=== PATIENT | female | born 1990 | race Caucasian/White ===

== ENCOUNTER 2017-04-05 21:38 | Outpatient (CLI) | payer OTHER ==
[~2017-04-05] VITALS: Ht 177.8 cm; Wt 112.8 kg
[~2017-04-05 21:38] MED LIST: ACHYD1T PO; CEPH500C PO; DCS100C PO; IBP800T PO; PHEN-639 PO; PREN1TAB39 PO; SERT50TA2 PO
[2017-04-05 22:00] VITALS: BP 119/67
[2017-04-05] MEDS ORDERED: IRON18TA PO (22:12)
[2017-04-05] MEDS ORDERED: BETAMETHASONE ACE/NA PHOS 6 MG/ML (CELESTONE SOLUSPAN) IM SCH (22:30)
[2017-04-05 22:39] LABS: CLARITY,URINE CLEAR; COLOR,URINE YELLOW
[2017-04-05 22:40] LABS: BACTERIA,URINE NEGATIVE /HPF; BILIRUBIN,URINE NEGATIVE (NEGATIVE); GLUCOSE, URINE (UA) NEGATIVE (NEGATIVE); KETONES,URINE NEGATIVE (NEGATIVE); LEUKOCYTE ESTERASE ,URINE NEGATIVE (NEGATIVE); NITRITE,URINE NEGATIVE (NEGATIVE); PH,URINE 7 (5-9); PROTEIN,URINE NEGATIVE (NEGATIVE); UROBILINOGEN,URINE NORMAL (NORMAL); WBC,URINE 0-2 /HPF
--- NOTE | 2017-04-06 12:05 | Physician Query-Final Dx ---
MARIO BAGLEY 04/06/17 1205: Clinic Account Progress/Dx Physician Query: Please give diagnosis Date of Service Apr 05, 2017 at 21:38 SEKOU JEAN DO 04/06/17 1701: Clinic Account Progress/Dx DIAGNOSIS: Diagnosis 30 week IUP Cramping and bleeding in MARIO BAGLEY Apr 06, 2017 12:05 SEKOU JEAN DO Apr 06, 2017 17:01
[2017-04-06] MEDS ORDERED: BETAMETHASONE ACE/NA PHOS 6 MG/ML (CELESTONE SOLUSPAN) IM SCH (22:30)
== END 2017-04-05 23:11 | disposition home or self-care (01) ==
LOC: WSo 21:38 → LDRP 21:38 → WSo 23:11
PROVIDERS: ATTEND Obstetrics & Gynecology
DX: O46.93 Antepartum hemorrhage, unspecified, third trimester (principal); O99.89 Other specified diseases and conditions complicating pregnancy, childbirth and the puerperium; O26.893 Other specified pregnancy related conditions, third trimester; N94.89 Other specified conditions associated with female genital organs and menstrual cycle; Z3A.30 30 weeks gestation of pregnancy
CPT/HCPCS: 81000; 96372; 99213

== ENCOUNTER 2017-04-06 20:58 | Outpatient (CLI) | payer OTHER ==
[~2017-04-06 20:58] MED LIST changes: +IRON18TA PO
[2017-04-06] MEDS ORDERED: BETAMETHASONE ACE/NA PHOS 6 MG/ML (CELESTONE SOLUSPAN) ONE (21:07)
[2017-04-07] MEDS ORDERED: BETAMETHASONE ACE/NA PHOS 6 MG/ML (CELESTONE SOLUSPAN) IM ONE (09:00)
--- NOTE | 2017-04-07 14:30 | Physician Query-Final Dx ---
DWIGHT JOHNSON 04/07/17 1430: Clinic Account Progress/Dx Physician Query: Please give diagnosis Date of Service Apr 06, 2017 at 20:58 SEKOU JEAN DO 04/08/17 0811: Clinic Account Progress/Dx DIAGNOSIS: Diagnosis 31 week IUP Cramping/bleeding -return visit for Betamethasone injection DWIGHT JOHNSON Apr 07, 2017 14:30 SEKOU JEAN DO Apr 08, 2017 08:11
== END 2017-04-06 21:20 | disposition home or self-care (01) ==
LOC: WSo 20:58 → LDRP 20:58 → WSo 21:20
PROVIDERS: ATTEND Obstetrics & Gynecology
DX: O46.93 Antepartum hemorrhage, unspecified, third trimester (principal); Z3A.31 31 weeks gestation of pregnancy
CPT/HCPCS: 96372

== ENCOUNTER 2017-05-13 20:02 | Inpatient (IN) | payer OTHER ==
[2017-05-13] VITALS (28 sets, daily range): BP systolic 103–144; BP diastolic 62–80
[~2017-05-13] VITALS: Ht 177.8 cm; Wt 112.2 kg
[2017-05-13] MEDS ORDERED: SUFENTA 0.6MCG/ML BUPIVA 0.125 100 ML ONE (20:34)
[2017-05-13] MEDS ORDERED: AMPICILLIN 2000 MG INJECTION (IM/IV) ONE (20:35)
[2017-05-13] MEDS ORDERED: AMPICILLIN INJECTION 2,000 MG in NS (IVPB) 100 ML IV SCH (20:47)
[2017-05-13] MEDS ORDERED: LACTATED RINGERS 1,000 ML IV SCH (20:47)
[2017-05-13] MEDS ORDERED: NS (IVPB) 100 ML ONE (20:49)
--- NOTE | 2017-05-13 20:58 | History & Physical-OB ---
OB - Chief Complaint & HPI Date/Time Date of Admission: Date of Admission: May 13, 2017 at 20:47 Time Seen by Provider: 20:00 Chief Complaint/History OB-Reason for Admission/Chief: Rupture of Membranes (onset of labor) Hx : 3 Hx Para: 2 Expected Date of Delivery: May 26, 2017 Gestational Age in Weeks: 38 Gestational Age in Days: 1 Admission Nurse Assessment Rev: Yes History of Labs A pos Antibody neg RI RPR NR HBsAg NR HIV NR GC neg GBS + Allergies and Home Medications Allergies Coded Allergies: No Known Drug Allergies (Unverified , 04/05/17) Patient Home Medication List Home Medication List Reviewed: Yes OB - History Hx of Present Care: Yes Ultrasounds: Normal mid trimester US Obstetrical Complications: Gestational Diabetes (GDMA2 on nightly glyburide), Other (Placenta previa which resolved at 34 weeks) Medical Complications: None Delivery History Hx Blood Disorders: No Patient Past Medical History noncontributory Immunizations Date of Influenza Vaccine: Nov 30, 2010 OB - Admission Exam Physical Exam HEENT: NCAT Heart: Rhythm Normal Lungs: Clear Abdomen: Gravid Extremities: Normal Reflexes: Normal Cervical Dilatation: 3cm Effacement: 75% Station: -1 Membranes: Ruptured Amniotic Fluid: Clear Heart Rate: 150's Accelerations: Accelerations Present Decelerations: Early Decelerations Short Term Variability: Present Dye Machine Tender Variability: Minimal (3-5) Intensity: Firm OB - Assessment/Plan/Diagnosis Assessment Assessment: active labor Admission Dx 27 yo @ 38.1 weeks GDMA 2 TOLAC GBS + Admission Status: Inpatient Order (span 2 midnights) Reason for Inpatient Admission: Active labor and delivery of term Plan Plan: Expectant Management Discharge Diagnosis Diagnosis: 27 yo @ 38.1 weeks GDMA 2 TOLAC GBS + SEKOU JEAN DO May 13, 2017 20:58
[2017-05-13] MEDS ORDERED: MINERAL OIL CONCENTRATE 99.9% 15 ML UDC TOP PRN (21:00)
[2017-05-13 21:15] LABS: BASOPHILS % (AUTO) 0 % (0-10); EOSINOPHILS % (AUTO) 0 % (0-10); HEMATOCRIT 33 % (35-52); HEMOGLOBIN 11.2 G/DL (11.5-16.0); LYMPHOCYTES # (AUTO) 1.1 X 10^3 (1.0-4.0); LYMPHOCYTES % (AUTO) 8 % (12-44); MEAN CORPUSCULAR HEMOGLOBIN 31 PG (25-34); MEAN CORPUSCULAR HGB CONC 34 G/DL (32-36); MEAN CORPUSCULAR VOLUME 93 FL (80-99); MONOCYTES % (AUTO) 8 % (0-12); NEUTROPHILS # (AUTO) 11.7 X 10^3 (1.8-7.8); NEUTROPHILS % (AUTO) 84 % (42-75); PLATELET COUNT 159 10^3/uL (130-400); RED BLOOD COUNT 3.58 10^6/uL (4.35-5.85); RED CELL DISTRIBUTION WIDTH 14.9 % (10.0-14.5); WHITE BLOOD COUNT 13.8 10^3/uL (4.3-11.0)
--- OUTSIDE RECORDS SUMMARY | 2017-05-13 21:16 | XMS REPORT ---
Author Author EARL HUA [facility] eClinicalWorks Address Unknown Phone Unavailable Care Team Providers Care Elevator Inspector Name Role Phone EARL HUA CP Unavailable Allergies, Adverse Reactions, Alerts Substance Reaction Event Type N.K.D.A. Info Not Available Non Drug Allergy Problems Problem Type Condition Code Onset Dates Condition Status Assessment Acute cystitis without hematuria N30.00 Active Assessment Environmental allergies Z91.09 Active Problem Dysuria R30.0 Active Problem Major depressive disorder with single episode, remission status unspecified F32.9 Active Problem Environmental allergies Z91.09 Active Assessment Dysuria R30.0 Active Assessment Vaginal discharge N89.8 Active Problem Anxiety F41.9 Active Problem Mood disorder F39 Active Medications Medication Code System Code Instructions Start Date End Date Status Dosage Advil Congestion Relief [facility] [address]-46 10-200 MG Orally not defined Alprazolam [facility] [address]-38 0.5 MG Orally PRN 1 tablet Sertraline HCl [facility] [address]-84 100 MG Orally Once a day 1 tablet Clonidine HCl [facility] [address]-29 0.1 MG Orally Once a day September 14, 2015 1 tablet Cipro [facility] [address]-55 500 MG Orally Twice a day Dec 10, 2015 Dec 20, 2015 1 tablet Zyrtec Allergy [facility] [address]-34 10 mg Orally Once a day Dec 10, 2015 Jan 09, 2016 1 tablet Procedures Procedure Coding System Code Date URINE CULTURE/COLONY COUNT CPT-4 98601 Dec 10, 2015 TRICHOMONAS ASSAY W/OPTIC CPT-4 13517 Dec 10, 2015 URINALYSIS, AUTO, W/O SCOPE CPT-4 69412 Dec 10, 2015 CULTURE, BACTERIA, OTHER CPT-4 44180 Dec 10, 2015 EDWARDS VAG, DNA, DIR PROBE CPT-4 85649 Dec 10, 2015 Office Visit, Est Pt., Level 3 CPT-4 89500 Dec 10, 2015 Vital Signs Date/Time: Dec 10, 2015 Cardiac Monitoring Heart Rate 80 bpm Weight 229 lbs Height 70 in BMI 32.85 Index Blood Pressure Diastolic 64 mmHg Blood Pressure Systolic 100 mmHg Results Name Result Date Reference Range Unit Abnormality Flag BACTERIAL VAGINOSIS (IN HOUSE) ----Lot # [id number] [id number] ----Exp date 20151210 ----RESULTS Negative 20151210 ----Control + 20151210 TRICHOMONAS (IN HOUSE) ----TRICHOMONAS Negative 20151210 ----Control + 20151210 ----Lot # [id number] 20151210 ----Exp date 20151210 UA LONG DIP (IN HOUSE) ----SG 1.025 20151210 ----KET Negative 20151210 ----pH 6.0 20151210 ----BLO Trace-Intact 20151210 ----URO 2.0 [id number] ----NIT Negative 20151210 ----Protein Negative 20151210 ----GLU Negative 20151210 ----MARRY Negative 20151210 ----Color light yellow 20151210 ----BERONICA 1+ 20151210 ----Odor none 20151210 ----Clarity cloudy 20151210 Summary Purpose eClinicalWorks Submission
--- OUTSIDE RECORDS SUMMARY | 2017-05-13 21:16 | XMS REPORT ---
Author Author EARL HUA [facility] eClinicalWorks Address Unknown Phone Unavailable Care Team Providers Care Lime Mixer Tender Name Role Phone EARL HUA Unavailable Allergies No Known Allergies Problems Problem Type Condition Code Onset Dates Condition Status Problem Anxiety F41.9 Active Problem Mood disorder F39 Active Problem Major depressive disorder with single episode, remission status unspecified F32.9 Active Assessment Major depressive disorder with single episode, remission status unspecified F32.9 Active Medications Medication Code System Code Instructions Start Date End Date Status Dosage Clonidine HCl [facility] [address]-29 0.1 MG Orally Once a day September 14, 2015 1 tablet Alprazolam [facility] [address]-43 0.5 MG Orally PRN 1 tablet Sertraline HCl [facility] [address]-86 100 MG Orally Once a day 1 tablet Results No Known Results Summary Purpose eClinicalWorks Submission
--- OUTSIDE RECORDS SUMMARY | 2017-05-13 21:16 | XMS REPORT ---
Author Author ERAL HUA Organization eClinicalWorks Address Unknown Phone Unavailable Care Team Providers Care President [employer] Name Role Phone EARL HUA CP Unavailable Allergies, Adverse Reactions, Alerts Substance Reaction Event Type N.K.D.A. Info Not Available Non Drug Allergy Problems Problem Type Condition Code Onset Dates Condition Status Problem Anxiety F41.9 Active Problem Mood disorder F39 Active Problem Major depressive disorder with single episode, remission status unspecified F32.9 Active Assessment Mood disorder F39 Active Assessment Major depressive disorder with single episode, remission status unspecified F32.9 Active Assessment Anxiety F41.9 Active Medications Medication Code System Code Instructions Start Date End Date Status Dosage Rexulti [facility] [address]-37 0.5 MG Orally Once a day September 06, 2015 1 tablet Sertraline HCl [facility] [address]-97 100 MG Orally Once a day 1 tablet Alprazolam [facility] [address]-81 0.5 MG Orally PRN 1 tablet Procedures Procedure Coding System Code Date Office Visit, New Pt., Level 3 CPT-4 62839 September 06, 2015 Vital Signs Date/Time: September 06, 2015 Cardiac Monitoring Heart Rate 92 bpm Weight 230.5 lbs Height 70 in Blood Pressure Diastolic 76 mmHg Blood Pressure Systolic 106 mmHg Results No Known Results Summary Purpose eClinicalWorks Submission
--- OUTSIDE RECORDS SUMMARY | 2017-05-13 21:16 | XMS REPORT ---
Author Author EARL HUA Organization [facility] Address [address] [place] [address] Care Team Providers Care First Coat Operator Name Role Phone NEENA HUANETTE Unavailable PROBLEMS Type Condition ICD9-CM Code FEI21-CL Code Onset Dates Condition Status SNOMED Code Problem Environmental allergies Z91.09 Active 288114765 Problem Dysuria R30.0 Active 27440000 Problem Major depressive disorder with single episode, remission status unspecified F32.9 Active 79986307 Problem Anxiety F41.9 Active 24357544 Problem Mood disorder F39 Active 09369351 ALLERGIES Substance Reaction Event Type Date Status N.K.D.A. Unknown Non Drug Allergy Mar, Unknown SOCIAL HISTORY No smoking Hx information available PLAN OF CARE Activity Details Follow Up 3 Months Reason:anxiety/depression VITAL SIGNS Height 70 in 2016-03-05 Weight 231.9 lbs 2016-03-05 Temperature 98.1 degrees Fahrenheit 2016-03-05 Heart Rate 72 bpm 2016-03-05 Respiratory Rate 18 2016-03-05 BMI 33.27 kg/m2 2016-03-05 Blood pressure systolic 106 mmHg 2016-03-05 Blood pressure diastolic 78 mmHg 2016-03-05 MEDICATIONS Medication Instructions Dosage Frequency Start Date End Date Duration Status Advil Congestion Relief 10-200 MG Active Clonidine HCl 0.1 MG Orally Once a day 1 tablet 24h Aug, 30 day (s) Active Xanax 0.5 MG Orally Once a day prn 1 tablet Mar, Active Sertraline HCl 100 MG Orally Once a day TAKE ONE TABLET BY MOUTH ONCE DAILY 24h 30 Active RESULTS No Results PROCEDURES Procedure Date Ordered Related Diagnosis Body Site Office Visit, Est Pt., Level 3 Mar 05, 2016 IMMUNIZATIONS No Known Immunizations
--- OUTSIDE RECORDS SUMMARY | 2017-05-13 21:17 | XMS REPORT ---
Author Author BRYAN RAMOS [facility] eClinicalWorks Address Unknown Phone Unavailable Care Team Providers Care Dog Food Shredder Operator Name Role Phone BRYAN RAMOS CP Unavailable Allergies, Adverse Reactions, Alerts Substance Reaction Event Type N.K.D.A. Info Not Available Non Drug Allergy Problems Problem Type Condition Code Onset Dates Condition Status Problem Major depressive disorder with single episode, remission status unspecified F32.9 Active Problem Anxiety F41.9 Active Problem Dysuria R30.0 Active Problem Mood disorder F39 Active Assessment Pharyngitis, unspecified etiology J02.9 Active Medications Medication Code System Code Instructions Start Date End Date Status Dosage Sertraline HCl [facility] [address]-57 100 MG Orally Once a day 1 tablet Alprazolam [facility] [address]-96 0.5 MG Orally PRN 1 tablet Clonidine HCl [facility] [address]-50 0.1 MG Orally Once a day September 14, 2015 1 tablet Amoxicillin [facility] [address]-31 500 MG Orally 3 times a day Oct 31, 2015 Nov 10, 2015 1 capsule Advil Congestion Relief [facility] [address]-61 10-200 MG Orally not defined Procedures Procedure Coding System Code Date Office Visit, Est Pt., Level 3 CPT-4 50967 Oct 31, 2015 Vital Signs Date/Time: Oct 31, 2015 Cardiac Monitoring Heart Rate 70 bpm Weight 221.0 lbs Height 70 in BMI 31.71 Index Blood Pressure Diastolic 94 mmHg Blood Pressure Systolic 132 mmHg Results No Known Results Summary Purpose eClinicalWorks Submission
--- OUTSIDE RECORDS SUMMARY | 2017-05-13 21:17 | XMS REPORT | Continuity of Care Document ---
Author Author [facility] Organization [facility] Address Unknown Phone Unavailable Allergies Active Description Code Type Severity Reaction Onset Reported/Identified Relationship to Patient Clinical Status Yes No Known Drug Allergies [id number] Drug Allergy Unknown N/A 04/05/2017 Medications There is no data. Problems Date Dx Coded Attending Type Code Diagnosis Diagnosed By 02/17/2011 Ot 655.73 DECR MOVEMNT ANTEPARTUM CONDITION 06/06/2011 Ot 648.91 OTH CURR COND-DELIVERED 06/06/2011 Ot 652.51 HIGH HEAD AT TERM-DELIV 06/06/2011 Ot 653.41 FETOPELV DISPROPOR-DELIV 06/06/2011 Ot 659.71 ABN DEL FET HT RT/RHYTHM,W OR W/O MENTIO 06/06/2011 Ot 660.01 OBSTRUC/FET MALPOS-DELIV 06/06/2011 Ot 660.11 BONY PELV OBSTRUCT-DELIV 06/06/2011 Ot 660.31 PERSIST OCCIPTPOST-DELIV 06/06/2011 Ot 661.21 UTERINE INERT NEC-DELIV 06/06/2011 Ot V02.51 GROUP B STREPT CARRIER/SUSPECTED CARRIER 06/06/2011 Ot V27.0 DELIVER- SINGLE LIVEBORN 07/06/2015 Ot 789.09 ABDOMINAL PAIN, OTHER SPECIFIED SITE 07/06/2015 Ot 789.09 ABDOMINAL PAIN, OTHER SPECIFIED SITE 07/06/2015 Ot 789.09 ABDOMINAL PAIN, OTHER SPECIFIED SITE 07/06/2015 Ot 789.09 ABDOMINAL PAIN, OTHER SPECIFIED SITE 07/06/2015 FLO GRANADO Ot N39.0 URINARY TRACT INFECTION, SITE NOT SPECIF 07/06/2015 FLO GRANADO Ot R45.851 SUICIDAL IDEATIONS 07/06/2015 FLO GRANADO Ot Z63.79 OTHER STRESSFUL LIFE EVENTS AFFECTING FA 07/08/2015 FLO GRANADO Ot N39.0 URINARY TRACT INFECTION, SITE NOT SPECIF 07/08/2015 FLO GRANADO Ot R45.851 SUICIDAL IDEATIONS 07/08/2015 FLO GRANADO Ot Z63.79 OTHER STRESSFUL LIFE EVENTS AFFECTING FA 02/20/2016 Ot 789.09 ABDOMINAL PAIN, OTHER SPECIFIED SITE 02/20/2016 Ot 789.09 ABDOMINAL PAIN, OTHER SPECIFIED SITE 02/20/2016 Ot 789.09 ABDOMINAL PAIN, OTHER SPECIFIED SITE 02/20/2016 Ot 789.09 ABDOMINAL PAIN, OTHER SPECIFIED SITE 06/28/2016 FLO GRANADO Ot N39.0 URINARY TRACT INFECTION, SITE NOT SPECIF 06/28/2016 FLO GRANADO Ot R45.851 SUICIDAL IDEATIONS 06/28/2016 FLO GRANADO Ot Z63.79 OTHER STRESSFUL LIFE EVENTS AFFECTING FA 11/10/2016 Ot 789.09 ABDOMINAL PAIN, OTHER SPECIFIED SITE 11/14/2016 Ot 789.09 ABDOMINAL PAIN, OTHER SPECIFIED SITE 01/05/2017 CASSIUSSEKOU HELLER DO Ot Z36.87 ENCOUNTER FOR SCREENING FOR UN 01/05/2017 TED BECERRA SEKOU Pamela Ot Z3A.19 19 WEEKS GESTATION OF 01/14/2017 TED BECERRASEKOU Ot Z36.87 ENCOUNTER FOR SCREENING FOR UN 01/14/2017 TED BECERRA SEKOU Pamela Ot Z3A.19 19 WEEKS GESTATION OF 04/05/2017 TED BECERRA SEKOU Santiago Ot N94.89 OT COND ASSOC W FEMALE GENITAL ORGANS A 04/05/2017 TED BECERRA SEKOU Santiago Ot O26.893 OT RELATED CONDITIONS, THIRD 04/05/2017 TED SEKOU BECERRA Ot O46.93 ANTEPARTUM HEMORRHAGE, UNSPECIFIED, THIR 04/05/2017 TED BECERRA SEKOU Pamela Ot O99.89 OT DISEASES AND CONDITIONS COMPL PREG/C 04/05/2017 TED SEKOU BECERRA Ot Z3A.30 30 WEEKS GESTATION OF 04/06/2017 SEKOU JEAN DO Ot O46.93 ANTEPARTUM HEMORRHAGE, UNSPECIFIED, THIR 04/06/2017 SEKOU EJAN DO Ot Z3A.31 31 WEEKS GESTATION OF 04/09/2017 SEKOU JEAN DO Ot O46.93 ANTEPARTUM HEMORRHAGE, UNSPECIFIED, THIR 04/09/2017 SEKOU JEAN DO Ot Z3A.31 31 WEEKS GESTATION OF Procedures Code Description Performed By Performed On 74.1 LOW CERVICAL 06/04/2011 Results Test Result Range Complete urinalysis with reflex to culture - 04/05/17 22:20 Urine color determination YELLOW NRG Urine clarity determination CLEAR NRG Urine pH measurement by test strip 7 5-9 Specific gravity of urine by test strip 1.010 1.016- 1.022 Urine protein assay by test strip, semi-quantitative NEGATIVE NEGATIVE Urine glucose detection by automated test strip NEGATIVE NEGATIVE Erythrocytes detection in urine sediment by light microscopy NEGATIVE NEGATIVE Urine ketones detection by automated test strip NEGATIVE NEGATIVE Urine nitrite detection by test strip NEGATIVE NEGATIVE Urine total bilirubin detection by test strip NEGATIVE NEGATIVE Urine urobilinogen measurement by automated test strip (mass/volume) NORMAL NORMAL Urine leukocyte esterase detection by dipstick NEGATIVE NEGATIVE Automated urine sediment erythrocyte count by microscopy (number/high power field) NONE NRG Automated urine sediment leukocyte count by microscopy (number/high power field ) [HPF] NRG Bacteria detection in urine sediment by light microscopy NEGATIVE NRG Squamous epithelial cells detection in urine sediment by light microscopy 10-25 NRG Crystals detection in urine sediment by light microscopy NONE NRG Casts detection in urine sediment by light microscopy NONE NRG Mucus detection in urine sediment by light microscopy NEGATIVE NRG Complete urinalysis with reflex to culture NO NRG Renal epithelial cells detection in urine sediment by light microscopy NONE NRG Encounters ACCT No. Visit Date/Time Discharge Status Pt. Type Provider Facility Loc./Unit Complaint [id number] 04/06/2017 20:58:00 04/06/2017 21:20:00 DIS Outpatient SEKOU JEAN DO [facility] WSo BETEMETHASONE INJECTION [id number] 04/05/2017 21:38:00 04/05/2017 23:11:00 DIS Outpatient SEKOU JEAN DO [facility]So BLEEDING CRAMPING [id number] 01/02/2017 11:59:00 01/02/2017 23:59:59 CLS Outpatient SEKOU JEAN DO S [facility] RAD Z33.1 [id number] 11/10/2016 15:41:00 11/10/2016 23:59:59 CLS Preadmit QUETA FLOR, JHOAN Gutiérrez [facility] RAD Z34.80 [id number] 07/06/2015 15:04:00 07/06/2015 21:02:00 DIS Emergency FLO GRANADO [facility] ER [facility] [id number] 06/18/2011 15:06:00 Document Registration [id number] 06/03/2011 21:40:00 Document Registration [id number] 04/28/2011 07:58:00 Document Registration [id number] 02/17/2011 21:47:00 Document Registration
--- OUTSIDE RECORDS SUMMARY | 2017-05-13 21:17 | XMS REPORT ---
Author Author EARL HUA [facility] eClinicalWorks Address Unknown Phone Unavailable Care Team Providers Care Vehicle Technician Name Role Phone EARL HUA CP Unavailable Allergies, Adverse Reactions, Alerts Substance Reaction Event Type N.K.D.A. Info Not Available Non Drug Allergy Problems Problem Type Condition Code Onset Dates Condition Status Assessment Dysuria R30.0 Active Problem Major depressive disorder with single episode, remission status unspecified F32.9 Active Problem Anxiety F41.9 Active Problem Dysuria R30.0 Active Assessment Anxiety F41.9 Active Assessment Mood disorder F39 Active Problem Mood disorder F39 Active Assessment Major depressive disorder with single episode, remission status unspecified F32.9 Active Medications Medication Code System Code Instructions Start Date End Date Status Dosage Sertraline HCl [facility] [address]-93 100 MG Orally Once a day 1 tablet Clonidine HCl [facility] [address]-95 0.1 MG Orally Once a day September 14, 2015 1 tablet Alprazolam [facility] [address]-41 0.5 MG Orally PRN 1 tablet Procedures Procedure Coding System Code Date COMPREHEN METABOLIC PANEL CPT-4 31693 Oct 04, 2015 ASSAY THYROID STIM HORMONE CPT-4 22097 Oct 04, 2015 COMPLETE CBC W/AUTO DIFF WBC CPT-4 55210 Oct 04, 2015 VENIPUNCT, ROUTINE* CPT-4 93349 Oct 04, 2015 URINALYSIS, AUTO, W/O SCOPE CPT-4 50239 Oct 04, 2015 Office Visit, Est Pt., Level 4 CPT-4 66842 Oct 04, 2015 Vital Signs Date/Time: Oct 04, 2015 Cardiac Monitoring Heart Rate 86 bpm Weight 225.2 lbs Height 70 in BMI 32.31 Index Blood Pressure Diastolic 72 mmHg Blood Pressure Systolic 118 mmHg Results No Known Results Summary Purpose eClinicalWorks Submission
[2017-05-13 21:26] LABS: BAND NEUTROPHILS 11 %; BASOPHILS % (MANUAL) 1 %; EOSINOPHILS % (MANUAL) 0 %; LYMPHOCYTES % (MANUAL) 8 %; MONOCYTES % (MANUAL) 7 %; NEUTROPHILS % (MANUAL) 73 %
[2017-05-13 21:27] LABS: RBC MORPH NORMAL
[2017-05-13] MEDS ORDERED: LIDOCAINE PF 2% 5 ML (XYLOCAINE) VIAL ONE (21:28)
[2017-05-13] MEDS ORDERED: fentaNYL INJECTION 100 MCG/2 ML AMP ONE (21:28)
[2017-05-13] MEDS ORDERED: BUPIVACAINE 0.25% 30 ML (SENSORCAINE) VIAL ONE (21:28)
[2017-05-13] MEDS ORDERED: LACTATED RINGERS 1,000 ML IV ONE ×2 (21:57)
[2017-05-13] MEDS ORDERED: EPIDURAL (SUFENTA 0.6MCG/ML BUPIVA 0.125%) 100 ML BAG EPI PRN (22:00)
[2017-05-13] MEDS ORDERED: CATHETER FLUSH 10 ML SYR IV SCH (22:00)
[2017-05-13] MEDS ORDERED: ONDANSETRON 4 MG/2 ML (SDV) Z0FRAN IV PRN (22:00)
[2017-05-13] MEDS ORDERED: NALOXONE 0.4 MG/ML 1 ML (NARCAN) VIAL IV PRN (22:00)
[2017-05-13] MEDS ORDERED: GLYB1.253 PO (22:50)
[2017-05-14] VITALS (8 sets, daily range): BP systolic 100–124; BP diastolic 59–73
[2017-05-14] MEDS: OXYTOCIN/NORMAL SALINE 500 ML IV SCH ×2 (00:04→00:37)
--- NOTE | 2017-05-14 00:39 | OB Labor & Delivery Record ---
L&D History Date of Service Date of Service: May 14, 2017 History Expected Date of Delivery: May 26, 2017 Gestational Age in Weeks: 38 Hx : 3 Hx Para: 2 Complications Events: Gestational Diabetes () Operative Indications (Cesarea: N/A-Vaginal Delivery Intrapartal Events: None Other Complications repetitive variable decelerations, which became longer and deeper with 2nd stage labor L&D Stage1 Stage One Onset of Labor - Date: May 14, 2017 Monitors and Tracing Monitor Mode: External Heart Rate: 140 Monitor Accelerations: Uniform Monitor Decelerations: Variable Station: -1 Cycle Touring Guide Variability: Average (6-10) Short Term Variability: Present Presentation: Vertex Rupture of Membranes Spontaneous Ruture of Membrane: Yes Amniotic Membrane Rupture Time: 19:30 Amniotic Membrane Fluid Desc.: Clear Vaginal Bleeding Description: Normal Show Induction/Anesthesia Epidural Cath Placement - Time: 21:00 L&D Stage2 Stage Two Stage II Date: May 14, 2017 Monitors and Tracing Monitor Mode: External Heart Rate: 140 Monitor Accelerations: None Monitor Decelerations: Variable Cycle Touring Guide Variability: Average (6-10) Position: Right Occiput Anterior Presentation: Vertex Cord Descript/Complications Cord Vessel Description: 3 Vessels Complications nuchal cord x 1 Delivery Type Delivery Method: Spontaneous Vaginal Anterior Shoulder: Right Episiotomy/Perineal Laceration Laceraction(s)/Extensions: Yes Episiotomy Description: Vaginal Extension/lac, 1st degree Condition of Delivery 1 minute Comment: pending 5 minute Comment: pending Condition of Condition of Infant: Living Exam: No Observed Abnormalities live male weight 7lbs 2 oz Resuscitation Resuscitation: Bag and Mask L&D Stage3 Stage Three Stage III Date: May 14, 2017 Pictocin Pitocin Administration Comment: 30 mu wide open at delivery of placenta Placenta Delivery Placenta Delivery: Spontaneous Delivery Summary Summary Estimated blood loss (mL): 400 Attending at delivery: Sekou Jean DO Condition of Delivery Examined: Cervix Examined, Uterus Explored Post Hemorrhage: No Condition of Mother stable Condition of (s) stable SEKOU JEAN DO May 14, 2017 00:39
--- NOTE | 2017-05-14 00:40 | Discharge Inst-Women's Service ---
Discharge Inst-Women's Serv Depart Medication/Instructions New, Converted or Re-Newed RX: RX on Chart Consults/Follow Up Additional Follow Up: Yes Orders/Referrals Dr. Jean in 6 weeks Activity Activity: Activity as Tolerated Driving Instructions: No Driving for 1 Week NO SMOKING: NO SMOKING Nothing Inside Vagina: No Douching, No Verdon, No Tampons Diet Discharge Diet: No Restrictions Symptoms to Report to : Bleeding Excessive, Pain Increased, Fever Over 101 Degrees F, Vaginal Bleeding Increase, Questions/Concerns For Any Problems or Questions: Contact Your Physician Skin/Wound Care Bathing Instructions: Shower (x 2 weeks) SEKOU JEAN DO May 14, 2017 00:39
[2017-05-14] MEDS ORDERED: FERR325T18 PO (00:42)
[2017-05-14] MEDS ORDERED: DOCU100C37 PO (00:42)
[2017-05-14] MEDS ORDERED: ACHD5005 PO (00:42)
[2017-05-14] MEDS ORDERED: IBUP-1773 PO (00:42)
[2017-05-14] MEDS ORDERED: Benzocaine/Menthol TP (00:42)
[2017-05-14] MEDS ORDERED: TETANUS,DIPTH,PERTUSS P/F (BOOSTRIX) 0.5 ML VIAL IM ONE ×2 (00:45→17:10)
[2017-05-14] MEDS ORDERED: WITCH HAZEL(TUCKS) 40 EA JAR TOP PRN (00:45)
[2017-05-14] MEDS ORDERED: HYDROcodone/APAP 5 MG/325 MG (LORTAB) TAB PO PRN (00:45)
[2017-05-14] MEDS ORDERED: BENZOCAINE/MENTHOL (DERMOPLAST) 56 ML CAN TP PRN (00:45)
[2017-05-14] MEDS ORDERED: DIBUCAINE (NUPERCAINAL) 1% OINT 30 GM TOP PRN (00:45)
[2017-05-14] MEDS ORDERED: MEASLES,MUMPS,RUBELLA 1 EA INJ SQ ONE (00:45)
[2017-05-14] MEDS ORDERED: AMPICILLIN INJECTION 1,000 MG in NS (IVPB) 100 ML IV SCH (01:00)
[2017-05-14] MEDS: IBUPROFEN 600 MG (MOTRIN) TAB PO SCH ×3 (01:35→17:46)
[2017-05-14] MEDS ORDERED: CATHETER FLUSH 10 ML SYR IV SCH (06:00)
[2017-05-14] MEDS ORDERED: INFLUENZA TRIvalent 2017-2018 0.5 ML/45 MCG SYR IM ONE ×2 (06:30→17:10)
--- NOTE | 2017-05-14 09:18 | Anesthesia-Regional Post-Op ---
Regional Patient Condition Mental Status: Alert, Oriented x3 Circulation: Same as Pre-Op Headache: Absent Sensation: Full Recovery Motor Block: Absent Post Op Complications Complications None Follow Up Care/Instructions Patient Instructions None needed. Anesthesia/Patient Condition Patient is doing well, no complaints, stable vital signs, no apparent adverse anesthesia problems. No complications reported per nursing. JAVI FOX CRNA May 14, 2017 09:17
[2017-05-14] MEDS: PRENATAL VITAMIN 1 EA TAB PO SCH (09:49)
[2017-05-14] MEDS: DOCUSATE SODIUM 100 MG (COLACE) CAP PO SCH (09:50)
[2017-05-14] MEDS: FERROUS SULF 325 MG (IRON) TAB PO SCH (09:51)
--- NOTE | 2017-05-14 13:16 | Postpartum Progress Note ---
Note Note Day # 1 Subjective: Patient is without complaints. Ambulating, voiding. Tolerating a regular diet without nausea or vomiting. Normal lochia. Pain is well controlled with oral pain medications. Objective: Vital Sign - Last 24 Hours 05/13/17 05/13/17 05/13/17 05/13/17 20:20 21:00 21:30 21:33 Pulse 120 100 101 101 Resp 20 20 20 20 B/P (MAP) 134/76 (95) 118/76 (90) 135/76 (95) 139/78 (98) Pulse Ox 99 O2 Delivery Room Air Room Air Room Air Room Air 05/13/17 05/13/17 05/13/17 05/13/17 21:36 21:45 21:48 21:51 Pulse 101 102 102 99 Resp 20 18 18 B/P (MAP) 144/80 (101) 118/69 (85) 117/70 (86) 121/74 (90) Pulse Ox 99 100 100 99 O2 Delivery Room Air Room Air Room Air Room Air 05/13/17 05/13/17 05/13/17 05/13/17 21:56 22:00 22:03 22:05 Pulse 106 101 90 98 Resp 18 18 18 18 B/P (MAP) 123/72 (89) 120/72 (88) 125/77 (93) 119/74 (89) Pulse Ox 100 99 99 98 O2 Delivery Room Air Room Air Room Air Room Air 05/13/17 05/13/17 05/13/17 05/13/17 22:10 22:15 22:20 22:25 Pulse 99 105 100 96 Resp 18 18 18 18 B/P (MAP) 116/75 (89) 120/76 (91) 118/73 (88) 132/76 (94) Pulse Ox 99 99 98 99 O2 Delivery Room Air Room Air Room Air Room Air 05/13/17 05/13/17 05/13/17 05/13/17 22:30 22:35 22:43 22:45 Pulse 102 96 92 Resp 18 18 18 18 B/P (MAP) 120/71 (87) 128/71 (90) 127/77 (94) Pulse Ox 98 99 99 O2 Delivery Room Air Room Air Room Air Room Air 3/14/18 3/14/18 3/14/18 3/14/18 22:46 22:49 22:52 22:55 Temp 98.8 Pulse 97 95 97 96 Resp 18 18 18 18 B/P (MAP) 129/78 (95) 126/75 (92) 124/76 (92) 124/77 (93) Pulse Ox 99 99 99 99 O2 Delivery Room Air Room Air Room Air Room Air 05/13/17 05/13/17 05/13/17 05/13/17 23:00 23:10 23:15 23:15 Pulse 101 103 Resp 18 18 18 18 B/P (MAP) 119/62 (81) 113/78 (90) Pulse Ox 99 99 O2 Delivery Room Air Room Air Room Air Room Air 05/13/17 05/13/17 05/13/17 05/13/17 23:20 23:25 23:30 23:45 Pulse 111 120 104 Resp 18 18 18 18 B/P (MAP) 107/65 (79) 103/69 (80) 118/74 (89) Pulse Ox 99 99 99 O2 Delivery Room Air Room Air Room Air Room Air 05/13/17 05/13/17 05/14/17 05/14/17 23:45 23:52 00:13 00:32 Pulse 100 100 Resp 18 B/P (MAP) 119/73 (88) 124/69 (87) O2 Delivery Room Air Room Air Room Air Room Air 05/14/17 05/14/17 05/14/17 05/14/17 00:44 01:00 01:14 04:30 Temp 97.6 Pulse 95 88 88 80 Resp 18 18 18 B/P (MAP) 115/63 (80) 119/67 (84) 117/68 (84) 105/59 (74) Pulse Ox 98 O2 Delivery Room Air Room Air Room Air Room Air 05/14/17 09:52 Temp 97.7 Pulse 75 Resp 20 B/P (MAP) 100/60 (73) O2 Delivery Room Air Intake and Output 05/13/17 05/13/17 05/14/17 15:00 23:00 07:00 Intake Total 1100 ml 2000 ml Balance 1100 ml 2000 ml Laboratory Tests Test 05/13/17 21:00 Range/Units White Blood Count 13.8 H 4.3-11.0 10^3/uL Red Blood Count 3.58 L 4.35-5.85 10^6/uL Hemoglobin 11.2 L 11.5-16.0 G/DL Hematocrit 33 L 35-52 % Mean Corpuscular Volume 93 80-99 FL Mean Corpuscular Hemoglobin 31 25-34 PG Mean Corpuscular Hemoglobin Concent 34 32-36 G/DL Red Cell Distribution Width 14.9 H 10.0-14.5 % Platelet Count 159 130-400 10^3/uL Mean Platelet Volume 11.0 H 7.4-10.4 FL Neutrophils (%) (Auto) 84 H 42-75 % Lymphocytes (%) (Auto) 8 L 12-44 % Monocytes (%) (Auto) 8 0-12 % Eosinophils (%) (Auto) 0 0-10 % Basophils (%) (Auto) 0 0-10 % Neutrophils # (Auto) 11.7 H 1.8-7.8 X 10^3 Lymphocytes # (Auto) 1.1 1.0-4.0 X 10^3 Monocytes # (Auto) 1.0 0.0-1.0 X 10^3 Eosinophils # (Auto) 0.0 0.0-0.3 10^3/uL Basophils # (Auto) 0.0 0.0-0.1 10^3/uL Neutrophils % (Manual) 73 % Lymphocytes % (Manual) 8 % Monocytes % (Manual) 7 % Eosinophils % (Manual) 0 % Basophils % (Manual) 1 % Band Neutrophils 11 % Blood Morphology Comment NORMAL Physical Exam: General - Alert and oriented, no apparent distress Abdomen - Soft, appropriately tender to palpation, non-distended, fundus firm at umbilicus Extremities - no edema, negative Halle's bilaterally Assessment: PPD 1 NVD Plan: Routine care. Encourage breast feeding. Encourage ambulation. Ferrous sulfate supplementation. Plan for discharge tomorrow Vitals - Labs Vital Signs - I&O Vital Signs Date Time Temp Pulse Resp B/P (MAP) Pulse Ox O2 Delivery O2 Flow Rate FiO2 05/14/17 09:52 97.7 75 20 100/60 (73) Room Air 05/14/17 04:30 97.6 80 18 105/59 (74) 98 Room Air 05/14/17 01:14 88 18 117/68 (84) Room Air 05/14/17 01:00 88 18 119/67 (84) Room Air 05/14/17 00:44 95 18 115/63 (80) Room Air 05/14/17 00:32 100 18 124/69 (87) Room Air 05/14/17 00:13 100 18 119/73 (88) Room Air 05/13/17 23:52 18 Room Air 05/13/17 23:45 18 Room Air 05/13/17 23:45 104 18 118/74 (89) 99 Room Air 05/13/17 23:30 18 Room Air 05/13/17 23:25 120 18 103/69 (80) 99 Room Air 05/13/17 23:20 111 18 107/65 (79) 99 Room Air 05/13/17 23:15 18 Room Air 05/13/17 23:15 103 18 113/78 (90) 99 Room Air 05/13/17 23:10 101 18 119/62 (81) 99 Room Air 05/13/17 23:00 18 Room Air 05/13/17 22:55 96 18 124/77 (93) 99 Room Air 05/13/17 22:52 97 18 124/76 (92) 99 Room Air 05/13/17 22:49 98.8 95 18 126/75 (92) 99 Room Air 05/13/17 22:46 97 18 129/78 (95) 99 Room Air 05/13/17 22:45 18 Room Air 05/13/17 22:43 92 18 127/77 (94) 99 Room Air 05/13/17 22:35 96 18 128/71 (90) 99 Room Air 05/13/17 22:30 102 18 120/71 (87) 98 Room Air 05/13/17 22:25 96 18 132/76 (94) 99 Room Air 05/13/17 22:20 100 18 118/73 (88) 98 Room Air 05/13/17 22:15 105 18 120/76 (91) 99 Room Air 05/13/17 22:10 99 18 116/75 (89) 99 Room Air 05/13/17 22:05 98 18 119/74 (89) 98 Room Air 05/13/17 22:03 90 18 125/77 (93) 99 Room Air 05/13/17 22:00 101 18 120/72 (88) 99 Room Air 05/13/17 21:56 106 18 123/72 (89) 100 Room Air 05/13/17 21:51 99 18 121/74 (90) 99 Room Air 05/13/17 21:48 102 18 117/70 (86) 100 Room Air 05/13/17 21:45 102 20 118/69 (85) 100 Room Air 05/13/17 21:36 101 20 144/80 (101) 99 Room Air 05/13/17 21:33 101 20 139/78 (98) 99 Room Air 05/13/17 21:30 101 20 135/76 (95) Room Air 05/13/17 21:00 100 20 118/76 (90) Room Air 05/13/17 20:20 120 20 134/76 (95) Room Air I & O 05/14/17 07:00 Intake Total 3100 ml Balance 3100 ml Labs Laboratory Tests 05/13/17 21:00: White Blood Count 13.8H, Red Blood Count 3.58L, Hemoglobin 11.2L, Hematocrit 33L , Mean Corpuscular Volume 93, Mean Corpuscular Hemoglobin 31, Mean Corpuscular Hemoglobin Concent 34, Red Cell Distribution Width 14.9H, Platelet Count 159, Mean Platelet Volume 11.0H, Neutrophils (%) (Auto) 84H, Lymphocytes (%) (Auto) 8L, Monocytes (%) (Auto) 8, Eosinophils (%) (Auto) 0, Basophils (%) (Auto) 0, Neutrophils # (Auto) 11.7H, Lymphocytes # (Auto) 1.1, Monocytes # (Auto) 1.0, Eosinophils # (Auto) 0.0, Basophils # (Auto) 0.0, Neutrophils % (Manual) 73, Lymphocytes % (Manual) 8, Monocytes % (Manual) 7, Eosinophils % (Manual) 0, Basophils % (Manual) 1, Band Neutrophils 11, Blood Morphology Comment NORMAL TEDSEKOU Pamela DO May 14, 2017 1:16 pm
[2017-05-15 00:25] VITALS: BP 112/68
[2017-05-15] MEDS: IBUPROFEN 600 MG (MOTRIN) TAB PO SCH ×3 (00:47→13:03)
[2017-05-15 00:53] VITALS: BP 108/69
--- NOTE | 2017-05-15 06:34 | Postpartum Progress Note ---
Note Note Day # 2 Subjective: Patient is without complaints. Ambulating, voiding. Tolerating a regular diet without nausea or vomiting. Normal lochia. Pain is well controlled with oral pain medications. Objective: Vital Signs 05/15/17 05/15/17 00:25 00:53 Temp 97.0 Pulse 68 Resp 20 B/P (MAP) 108/69 (82) Pulse Ox 97 O2 Delivery Room Air Physical Exam: General - Alert and oriented, no apparent distress Abdomen - Soft, appropriately tender to palpation, non-distended, fundus firm at umbilicus Extremities - no edema, negative Halle's bilaterally Assessment: PPD 2 NVD- Plan: Routine care. Encourage breast feeding. Encourage ambulation. Ferrous sulfate supplementation. Plan for discharge today Vitals - Labs Vital Signs - I&O Vital Signs Date Time Temp Pulse Resp B/P (MAP) Pulse Ox O2 Delivery O2 Flow Rate FiO2 05/15/17 00:53 97.0 68 20 108/69 (82) 05/15/17 00:25 98.1 72 18 112/68 (83) 97 Room Air 05/14/17 16:45 97.8 68 18 111/71 (84) 97 Room Air 05/14/17 09:52 97.7 75 20 100/60 (73) Room Air SEKOU JEAN DO May 15, 2017 6:34 am
[2017-05-15 07:46] LABS: BASOPHILS # (AUTO) 0.1 10^3/uL (0.0-0.1); BASOPHILS % (AUTO) 0 % (0-10); EOSINOPHILS # (AUTO) 0.2 10^3/uL (0.0-0.3); EOSINOPHILS % (AUTO) 2 % (0-10); HEMATOCRIT 34 % (35-52); HEMOGLOBIN 11.1 G/DL (11.5-16.0); LYMPHOCYTES % (AUTO) 17 % (12-44); MEAN CORPUSCULAR HEMOGLOBIN 31 PG (25-34); MEAN CORPUSCULAR HGB CONC 33 G/DL (32-36); MEAN CORPUSCULAR VOLUME 95 FL (80-99); MONOCYTES # (AUTO) 0.7 X 10^3 (0.0-1.0); MONOCYTES % (AUTO) 6 % (0-12); NEUTROPHILS # (AUTO) 8.9 X 10^3 (1.8-7.8); NEUTROPHILS % (AUTO) 75 % (42-75); PLATELET COUNT 174 10^3/uL (130-400); RED BLOOD COUNT 3.58 10^6/uL (4.35-5.85); RED CELL DISTRIBUTION WIDTH 14.9 % (10.0-14.5); WHITE BLOOD COUNT 11.9 10^3/uL (4.3-11.0)
[2017-05-15 08:00] VITALS: BP 109/69
[2017-05-15] MEDS: DOCUSATE SODIUM 100 MG (COLACE) CAP PO SCH (09:08)
[2017-05-15] MEDS: FERROUS SULF 325 MG (IRON) TAB PO SCH (09:08)
[2017-05-15] MEDS: PRENATAL VITAMIN 1 EA TAB PO SCH (09:08)
[2017-05-15 13:00] VITALS: BP 119/78
[2017-05-15 13:30] VITALS: BP 119/78
== END 2017-05-15 13:30 | disposition home or self-care (01) | DRG 774 ==
LOC: WSo 20:02 → LDRP 20:03 → WSo 20:46 → LDRP 20:47
PROVIDERS: ADMIT Obstetrics & Gynecology; ATTEND Obstetrics & Gynecology
PROC: 10E0XZZ Delivery of Products of Conception, External Approach (ICD-10-PCS; principal; 2017-05-14)
PROC: 0HQ9XZZ Repair Perineum Skin, External Approach (ICD-10-PCS; 2017-05-14)
DX: O24.415 Gestational diabetes mellitus in pregnancy, controlled by oral hypoglycemic drugs (principal); O76 Abnormality in fetal heart rate and rhythm complicating labor and delivery; O70.0 First degree perineal laceration during delivery; O34.211 Maternal care for low transverse scar from previous cesarean delivery; O99.820 Streptococcus B carrier state complicating pregnancy; Z3A.38 38 weeks gestation of pregnancy; Z37.0 Single live birth; Z23 Encounter for immunization
CPT/HCPCS: 36415; 85007; 85025; 85027; 86850; 86900; 86901; 90715; 99212

== ENCOUNTER → 2017-10-30 | Outpatient (CLI) | payer OTHER ==
[~2017-10-30] MED LIST changes: +ACHD5005 PO; +Benzocaine/Menthol TP; +DOCU100C37 PO; +FERR325T18 PO; +GLYB1.253 PO; +IBUP-1773 PO
--- NOTE | 2017-10-30 10:15 | Diagnostic Imaging Report ---
INDICATION: Chronic back pain. Three views were obtained. FINDINGS: The alignment of thoracic spine is normal. Vertebral body heights are well-maintained. No fracture or traumatic subluxation. Lungs are clear. IMPRESSION: Unremarkable thoracic spine series. Dictated by: Dictated on workstation # [id number]
--- NOTE | 2017-10-30 10:17 | Diagnostic Imaging Report ---
INDICATION: Back pain. FINDINGS: The alignment of the lumbar spine is normal. The vertebral body heights are well maintained. There is no spondylolysis or spondylolisthesis. No fractures are identified. There appears to be some degenerative disc disease at L5-S1. IMPRESSION: Degenerative disc disease at L5-S1. Otherwise unremarkable lumbar spine series. Dictated by: Dictated on workstation # [id number]
== END ==
LOC: RAD 09:41
PROVIDERS: ATTEND Nurse Practitioner Family
DX: M51.37 Other intervertebral disc degeneration, lumbosacral region (principal)
CPT/HCPCS: 72072; 72100

== ENCOUNTER 2017-12-22 18:48 | Emergency (ER) | payer OTHER | END 2017-12-22 19:50 | disposition left against medical advice (07) | LOC: EDUNIT# 18:48 → ER 18:50 | DX: K82.9 Disease of gallbladder, unspecified (principal) ==

== ENCOUNTER 2018-01-06 13:38 | Outpatient (CLI) | payer OTHER ==
[~2018-01-06] VITALS: Ht 177.8 cm; Wt 101.2 kg
[~2018-01-06 13:38] MED LIST changes: -CEPH-507 PO; -NORE0.3518; -ONDN4T PO; -PANT40TA3 PO; -PARO20TA5 PO; -SERT100T8; -SUCR1TAB PO; -bcp PO
[2018-01-06] MEDS ORDERED: ONDN4T PO (14:29)
[2018-01-06] MEDS ORDERED: PANT40TA3 PO (14:29)
[2018-01-06] MEDS ORDERED: SUCR1TAB PO (14:29)
[2018-01-06] MEDS ORDERED: bcp PO (14:29)
[2018-01-06] MEDS ORDERED: PARO20TA5 PO (14:29)
[2018-01-07] MEDS ORDERED: ACHD5005 PO (14:17)
== END 2018-01-06 14:33 | disposition home or self-care (01) ==
LOC: PREOP 13:38
PROVIDERS: ATTEND Surgery
DX: Z01.818 Encounter for other preprocedural examination (principal)

== ENCOUNTER → 2018-01-06 | Outpatient (CLI) | payer OTHER ==
[~2018-01-06] MED LIST changes: +CEPH-507 PO; +NORE0.3518; +ONDN4T PO; +PANT40TA3 PO; +PARO20TA5 PO; +SERT100T8; +SUCR1TAB PO; +bcp PO
[2018-01-06 12:52] LABS: HEMOGLOBIN 12.7 G/DL (11.5-16.0); MEAN PLATELET VOLUME 9.9 FL (7.4-10.4); RED BLOOD COUNT 4.19 10^6/uL (4.35-5.85); RED CELL DISTRIBUTION WIDTH 12.5 % (10.0-14.5); WHITE BLOOD COUNT 9.5 10^3/uL (4.3-11.0)
[2018-01-06 13:15] LABS: ALANINE AMINOTRANSFERASE 12 U/L (0-55); ALBUMIN 4.4 GM/DL (3.2-4.5); ALKALINE PHOSPHATASE 104 U/L (40-136); AMYLASE 47 U/L (25-125); BILIRUBIN,TOTAL 1.8 MG/DL (0.1-1.0); BUN/CREATININE RATIO 13; CALCIUM 9.4 MG/DL (8.5-10.1); CARBON DIOXIDE 21 MMOL/L (21-32); CHLORIDE 105 MMOL/L (98-107); GFR ESTIMATED > 60; GLUCOSE 98 MG/DL (70-105); LIPASE 28 U/L (8-78); POTASSIUM 3.7 MMOL/L (3.6-5.0); SODIUM 137 MMOL/L (135-145); TOTAL PROTEIN 7.8 GM/DL (6.4-8.2)
== END ==
LOC: RAD 12:25
PROVIDERS: ATTEND Surgery
DX: K80.20 Calculus of gallbladder without cholecystitis without obstruction (principal)
CPT/HCPCS: 36415; 80053; 82150; 83690; 85027

== ENCOUNTER 2018-01-07 10:34 | Day surgery (SDC) | payer OTHER ==
[~2018-01-07] VITALS: Ht 177.8 cm; Wt 101.2 kg
[~2018-01-07 10:34] MED LIST changes: +ONDN4T PO; +PANT40TA3 PO; +PARO20TA5 PO; +SUCR1TAB PO; +bcp PO
[2018-01-07] MEDS ORDERED: MIDAZOLAM 2 MG/2 ML (VERSED) VIAL IV ONE (11:00)
[2018-01-07] MEDS ORDERED: FAMOTIDINE 20MG/2ML IV (PEPCID) IV ONE (11:00)
[2018-01-07] MEDS ORDERED: ONDANSETRON 4 MG/2 ML (SDV) Z0FRAN IV ONE (11:00)
[2018-01-07] MEDS ORDERED: BUP/EPI 0.5% 1:200,000 (SENSORCAINE) 30 ML VIAL ONE (11:11)
--- OUTSIDE RECORDS SUMMARY | 2018-01-07 11:14 | XMS REPORT | CCD ---
Author Author Tona De La Cruz MD, [facility] Address [address] [place] [address] Phone Care Team Providers Care Sign Painter Helper Name Role Phone PP Unavailable CCM Unavailable Summary Purpose Interface Exchange Insurance Providers Payer name Policy type / Coverage type Covered libertarian ID Effective Begin Date Effective End Date [facility] Commercial Insurance [id number] Unknown Family history Mother Diagnosis Age At Onset Depression Unknown Arthritis Unknown Hyperlipidemia Unknown Father Diagnosis Age At Onset Skin cancer Unknown Hyperlipidemia Unknown Social History Social History Element Codes Description Effective Dates Marital status Unknown Rhys 09/18/2017 Number of children Unknown 3 09/18/2017 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/18/[address]: 703051523 Never smoker 09/18/[address]: 232402444 Never drinks alcohol 09/18/2017 Allergies, Adverse Reactions, Alerts Substance Reaction Codes Entered Date Inactivated Date Status * NO KNOWN DRUG ALLERGIES Unknown 09/21/2017 No Inactive Date Active Past Medical History Illness Codes Condition Status Onset Date Resolved Date Encounter for immunization ICD-9: V03.82 ICD-10: Z23 Active 12/28/2017 Unknown Gastro-esophageal reflux disease without esophagitis ICD-9: 530.81 ICD-10: K21.9 Active 12/28/2017 Unknown Right upper quadrant pain ICD-9: 789.01 ICD-10: R10.11 Active 12/28/2017 Unknown Generalized anxiety disorder ICD-9: 300.02 ICD-10: F41.1 Active 09/21/2017 Unknown Low back pain ICD-9: 724.2 ICD-10: M54.5 Active 10/29/2017 Unknown Major depressive disorder, recurrent, mild ICD-9: 296.31 ICD-10: F33.0 Active 09/21/2017 Unknown Pain in thoracic spine ICD-9: 724.1 ICD-10: M54.6 Active 09/21/2017 Unknown Headache ICD-9: 784.0 ICD-10: R51 Active 09/21/2017 Unknown Other allergic rhinitis ICD-9: 477.8 ICD-10: J30.89 Active 09/21/2017 Unknown Problems Condition Codes Effective Dates Condition Status Encounter for immunization ICD-9: V03.82 ICD-10: Z23 12/28/2017 Active Gastro-esophageal reflux disease without esophagitis ICD-9: 530.81 ICD-10: K21.9 12/28/2017 Active Right upper quadrant pain ICD-9: 789.01 ICD-10: R10.11 12/28/2017 Active Generalized anxiety disorder ICD-9: 300.02 ICD-10: F41.1 09/21/2017 Active Low back pain ICD-9: 724.2 ICD-10: M54.5 10/29/2017 Active Major depressive disorder, recurrent, mild ICD-9: 296.31 ICD-10: F33.0 09/21/2017 Active Pain in thoracic spine ICD-9: 724.1 ICD-10: M54.6 09/21/2017 Active Headache ICD-9: 784.0 ICD-10: R51 09/21/2017 Active Other allergic rhinitis ICD-9: 477.8 ICD-10: J30.89 09/21/2017 Active Medications Medication Codes Instructions Start Date Stop Date Status Fill Instructions Protonix 40 mg tablet,delayed release RxNorm: 763185 1 Tablet(s) PO daily 12/28/2017 01/26/2018 Active Carafate 1 gram tablet RxNorm: 283175 1 Tablet(s) PO QID 201701/26/2018 Active paroxetine 20 mg tablet RxNorm: 9164205 1 Tablet(s) PO daily 02/25/2018 Active sertraline 100 mg tablet RxNorm: 356870 1.5 Tablet(s) PO daily 09/21/2017 10/28/2017 Inactive Jencycla 0.35 mg tablet RxNorm: 6110673 1 Tablet(s) PO daily 10/17/2017 Inactive sertraline 100 mg tablet RxNorm: 936486 1 Tablet(s) PO daily No Start Date 09/20/2017 Inactive Medication Administered No Medication Administered data Immunizations Vaccine Codes Date Status Influenza CVX: 141 12/28/2017 completed Assessments Condition Codes Effective Dates Right upper quadrant pain ICD-10: R10.11 ICD-9: 789.01 12/28/2017 Encounter for immunization ICD-10: Z23 ICD-9: V03.82 12/28/2017 Gastro-esophageal reflux disease without esophagitis ICD-10 : K21.9 ICD-9: 530.81 12/28/2017 Generalized anxiety disorder ICD-10: F41.1 ICD-9: 300.02 10/29/2017 Pain in thoracic spine ICD-10: M54.6 ICD-9: 724.1 10/29/2017 Major depressive disorder, recurrent, mild ICD-10: F33.0 ICD-9: 296.31 10/29/2017 Low back pain ICD-10: M54.5 ICD-9: 724.2 10/29/2017 Other allergic rhinitis ICD-10: J30.89 ICD-9: 477.8 09/21/2017 Headache ICD-10: R51 ICD-9: 784.0 09/21/2017 Reason For Visit Reason For Visit Effective Dates Notes abdominal pain 12/28/2017 low back pain 10/29/2017 depression 09/21/2017 anxiety Results No Results data Review of Systems System Result Effective Dates Constitutional No recent illness 2017 Constitutional No chills 12/28/2017 Constitutional No diaphoresis 12/28/2017 Constitutional No fever 12/28/2017 Eyes No eye erythema 12/28/2017 Ears/Nose/Throat/Neck No nasal discharge 12/28/2017 Cardiovascular No chest pain/pressure Respiratory No cough 12/28/2017 Gastrointestinal abdominal pain 2017 Gastrointestinal constipation 12/28/2017 Gastrointestinal No diarrhea 12/28/2017 Gastrointestinal No vomiting 12/28/2017 Gastrointestinal nausea 12/28/2017 Gastrointestinal gastroesophageal reflux 12/28/2017 Gastrointestinal No melena 12/28/2017 Gastrointestinal No hematochezia 2017 Gastrointestinal gas and bloating 2017 Genitourinary/Nephrology No dysuria 12/28 Musculoskeletal No joint complaint 2017 Dermatologic No rash 12/28/2017 Neurologic No alteration of consciousness 12/28/2017 Neurologic No mental status change 2017 Constitutional recent illness 10/29/2017 Constitutional No anorexia 10/29/2017 Constitutional No night sweats 2017 Constitutional No chills 10/29/2017 Constitutional No diaphoresis 10/29/2017 Constitutional fatigue 10/29/2017 Constitutional No fever 10/29/2017 Constitutional insomnia 10/29/2017 Constitutional No malaise 10/29/2017 Constitutional No weight loss 10/29/2017 Eyes No eye discharge 10/29/2017 Eyes No eye erythema 10/29/2017 Cardiovascular No chest pain/pressure Cardiovascular No dyspnea 10/29/2017 Respiratory No productive sputum 2017 Respiratory No cough 10/29/2017 Gastrointestinal No abdominal pain 2017 Gastrointestinal No constipation 2017 Gastrointestinal No diarrhea 10/29/2017 Genitourinary/Nephrology No dysuria 10/29 Musculoskeletal back pain 10/29/2017 Dermatologic No rash 10/29/2017 Neurologic No alteration of consciousness 10/29/2017 Psychiatric anxiety 10/29/2017 Psychiatric depression 10/29/2017 Ears/Nose/Throat/Neck No dizziness 2017 Constitutional recent illness 09/21/2017 Constitutional No anorexia 09/21/2017 Constitutional No night sweats 2017 Constitutional No chills 09/21/2017 Constitutional No diaphoresis 09/21/2017 Constitutional fatigue 09/21/2017 Constitutional No fever 09/21/2017 Constitutional insomnia 09/21/2017 Constitutional No malaise 09/21/2017 Constitutional No weight loss 09/21/2017 Constitutional weight gain 09/21/2017 Eyes No eye discharge 09/21/2017 Eyes No eye erythema 09/21/2017 Ears/Nose/Throat/Neck dizziness 2017 Ears/Nose/Throat/Neck headache 2017 Ears/Nose/Throat/Neck nasal allergies Ears/Nose/Throat/Neck nasal discharge Ears/Nose/Throat/Neck otalgia 09/21/2017 Cardiovascular No chest pain/pressure Cardiovascular No dyspnea 09/21/2017 Respiratory No cough 09/21/2017 Respiratory No productive sputum 2017 Gastrointestinal No abdominal pain 2017 Gastrointestinal No constipation 2017 Gastrointestinal No diarrhea 09/21/2017 Genitourinary/Nephrology No dysuria 09/21 Musculoskeletal joint complaint 2017 Dermatologic No rash 09/21/2017 Neurologic No alteration of consciousness 09/21/2017 Psychiatric anxiety 09/21/2017 Psychiatric depression 09/21/2017 Musculoskeletal back pain 09/21/2017 Physical Exam Exam Name System Name Item Name Status Result Effective Dates Notes Full Exam - General 1994 Constitutional general appearance Overall: well developed 12/28/2017 None Full Exam - General 1994 Constitutional general appearance Overall: in no acute distress 12/28/2017 None Full Exam - General 1994 Constitutional general appearance Overall: well nourished 12/28/2017 None Full Exam - General 1994 Eyes conjunctiva /eyelids Overall: eyelids normal 12/28/2017 None Full Exam - General 1994 Eyes conjunctiva /eyelids Overall: cornea clear 12/28/2017 None Full Exam - General 1994 Eyes conjunctiva /eyelids Overall: conjunctiva clear 12/28/2017 None Full Exam - General 1994 Ears/Nose/Throat lips/teeth/gingiva Overall: benign lips 12/28/2017 None Full Exam - General 1994 Ears/Nose/Throat oral cavity/pharynx/larynx Overall: oral mucosa clear 12/28/2017 None Full Exam - General 1994 Respiratory respiratory effort/rhythm Overall: normal rate 12/28/2017 None Full Exam - General 1994 Respiratory respiratory effort/rhythm Overall: no retractions 12/28/2017 None Full Exam - General 1994 Respiratory auscultation Overall: breath sounds clear bilaterally 12/28/2017 None Full Exam - General 1994 Cardiovascular auscultation of heart Overall: regular rate 12/28/2017 None Full Exam - General 1994 Cardiovascular auscultation of heart Overall: normal heart sounds 12/28/2017 None Full Exam - General 1994 Abdomen abdominal exam Overall: normal bowel sounds 12/28/2017 None Full Exam - General 1994 Abdomen abdominal exam Upper quadrant: tender to palpation 12/28/2017 None Full Exam - General 1994 Abdomen abdominal exam Upper quadrant: sharp pain 12/28/2017 None Full Exam - General 1994 Abdomen abdominal exam Upper quadrant: dull pain 12/28/2017 None Full Exam - General 1994 Abdomen abdominal exam Upper quadrant: voluntary guarding 12/28/2017 None Full Exam - General 1994 Abdomen abdominal exam Upper quadrant: no rebound tenderness 12/28/2017 None Full Exam - General 1994 Abdomen abdominal exam Upper quadrant: soft 12/28/2017 None Full Exam - General 1994 Abdomen abdominal exam Epigastric: tender to palpation 12/28/2017 None Full Exam - General 1994 Abdomen abdominal exam Epigastric: dull pain 12/28/2017 None Full Exam - General 1994 Abdomen abdominal exam Epigastric: voluntary guarding 12/28/2017 None Full Exam - General 1994 Abdomen abdominal exam Epigastric: no rebound tenderness 12/28/2017 None Full Exam - General 1994 Abdomen abdominal exam Epigastric: soft 12/28/2017 None Full Exam - General 1994 Abdomen abdominal exam Lower quadrant: non-tender to palpation 12/28/2017 None Full Exam - General 1994 Abdomen abdominal exam Lower quadrant: no guarding 12/28/2017 None Full Exam - General 1994 Abdomen abdominal exam Lower quadrant: no rebound tenderness 12/28/2017 None Full Exam - General 1994 Abdomen abdominal exam Lower quadrant: soft 12/28/2017 None Full Exam - General 1994 Musculoskeletal head and neck Overall: head atraumatic 12/28/2017 None Full Exam - General 1994 Musculoskeletal gait and station Overall: normal station 12/28/2017 None Full Exam - General 1994 Musculoskeletal gait and station Overall: normal gait 12/28/2017 None Full Exam - General 1994 Neurologic cranial nerves Overall: crainial nerves 2 - 12 grossly intact 12/28/2017 None Full Exam - General 1994 Psychiatric orientation/consciousness Overall: oriented to person, place and time 12/28/2017 None Full Exam - General 1994 Psychiatric mood and affect Overall: normal mood and affect 12/28/2017 None Full Exam - General 1994 Psychiatric appearance Overall: well-groomed, good eye contact 12/28/2017 None Full Exam - General 1994 Constitutional general appearance Overall: well developed 10/29/2017 None Full Exam - General 1994 Constitutional general appearance Overall: in no acute distress 10/29/2017 None Full Exam - General 1994 Constitutional general appearance Overall: well nourished 10/29/2017 None Full Exam - General 1994 Ears/Nose/Throat otoscopic exam Overall: external auditory canals clear 10/29/2017 None Full Exam - General 1994 Ears/Nose/Throat otoscopic exam Overall: tympanic membranes clear 10/29/2017 None Full Exam - General 1994 Ears/Nose/Throat oral cavity/pharynx/larynx Overall: oral mucosa clear 10/29/2017 None Full Exam - General 1994 Respiratory auscultation Overall: breath sounds clear bilaterally 10/29/2017 None Full Exam - General 1994 Respiratory respiratory effort/rhythm Overall: no retractions 10/29/2017 None Full Exam - General 1994 Respiratory respiratory effort/rhythm Overall: normal rate 10/29/2017 None Full Exam - General 1994 Cardiovascular auscultation of heart Overall: regular rate 10/29/2017 None Full Exam - General 1994 Cardiovascular auscultation of heart Overall: normal heart sounds 10/29/2017 None Full Exam - General 1994 Cardiovascular auscultation of heart Overall: no murmurs 10/29/2017 None Full Exam - General 1994 Abdomen abdominal exam Overall: no tenderness 10/29/2017 None Full Exam - General 1994 Abdomen abdominal exam Overall: normal bowel sounds 10/29/2017 None Full Exam - General 1994 Lymphatic neck nodes Overall: anterior cervical chain benign 10/29/2017 None Full Exam - General 1994 Lymphatic neck nodes Overall: posterior cervical chain benign 10/29/2017 None Full Exam - General 1994 Musculoskeletal gait and station Overall: normal gait 10/29/2017 None Full Exam - General 1994 Musculoskeletal gait and station Overall: normal station 10/29/2017 None Full Exam - General 1994 Musculoskeletal head and neck Overall: head atraumatic 10/29/2017 None Full Exam - General 1994 Integument inspection of skin Overall: few scattered moles, no gross abnormalities 10/29/2017 None Full Exam - General 1994 Neurologic cranial nerves Overall: crainial nerves 2 - 12 grossly intact 10/29/2017 None Full Exam - General 1994 Psychiatric orientation/consciousness Overall: oriented to person, place and time 10/29/2017 None Full Exam - General 1994 Constitutional general appearance Overall: well developed 09/21/2017 None Full Exam - General 1994 Constitutional general appearance Overall: in no acute distress 09/21/2017 None Full Exam - General 1994 Constitutional general appearance Overall: well nourished 09/21/2017 None Full Exam - General 1994 Psychiatric orientation/consciousness Overall: oriented to person, place and time 09/21/2017 None Full Exam - General 1994 Neurologic cranial nerves Overall: crainial nerves 2 - 12 grossly intact 09/21/2017 None Full Exam - General 1994 Integument inspection of skin Overall: few scattered moles, no gross abnormalities 09/21/2017 None Full Exam - General 1994 Musculoskeletal gait and station Overall: normal gait 09/21/2017 None Full Exam - General 1994 Musculoskeletal gait and station Overall: normal station 09/21/2017 None Full Exam - General 1994 Musculoskeletal head and neck Overall: head atraumatic 09/21/2017 None Full Exam - General 1994 Lymphatic neck nodes Overall: anterior cervical chain benign 09/21/2017 None Full Exam - General 1994 Lymphatic neck nodes Overall: posterior cervical chain benign 09/21/2017 None Full Exam - General 1994 Abdomen abdominal exam Overall: no tenderness 09/21/2017 None Full Exam - General 1994 Abdomen abdominal exam Overall: normal bowel sounds 09/21/2017 None Full Exam - General 1994 Cardiovascular auscultation of heart Overall: regular rate 09/21/2017 None Full Exam - General 1994 Cardiovascular auscultation of heart Overall: normal heart sounds 09/21/2017 None Full Exam - General 1994 Cardiovascular auscultation of heart Overall: no murmurs 09/21/2017 None Full Exam - General 1994 Respiratory auscultation Overall: breath sounds clear bilaterally 09/21/2017 None Full Exam - General 1994 Respiratory respiratory effort/rhythm Overall: no retractions 09/21/2017 None Full Exam - General 1994 Respiratory respiratory effort/rhythm Overall: normal rate 09/21/2017 None Full Exam - General 1994 Ears/Nose/Throat otoscopic exam Overall: external auditory canals clear 09/21/2017 None Full Exam - General 1994 Ears/Nose/Throat otoscopic exam Overall: tympanic membranes clear 09/21/2017 None Full Exam - General 1994 Ears/Nose/Throat oral cavity/pharynx/larynx Overall: oral mucosa clear 09/21/2017 None Procedures Procedure Codes Date IMMUNIZATION ADMIN CPT -4: 34783 12/28/2017 FLU VAC NO PRSV 4 SARI 3 YRS+ CPT-4: 89613 12/28/2017 Vital Signs Date Vital 12/28/2017 Blood Pressure 1: 102/60 Code : 8480-6 BMI: 32.0 Code : 13623-1 Heart Rate 1 : 68 bpm Height: 5'10" SpO2: 98% Weight: 223 lbs 10/29/2017 Blood Pressure 1: 102/76 Code : 8480-6 BMI: 31.3 Code : 31724-8 Heart Rate 1 : 78 bpm Height: 5'10" SpO2: 97% Weight: 218 lbs 09/21/2017 Blood Pressure 1: 110/70 Code : 8480-6 BMI: 31.3 Code : 57762-4 Heart Rate 1 : 76 bpm Height: 5'10" SpO2: 96% Weight: 218 lbs Functional Status No Functional Status data History of Present Illness Symptom Name Status Result Effective Date Notes abdominal pain Location in the RUQ 12/28/2017 None abdominal pain Quality aching 12/28/2017 None abdominal pain Quality cramping 12/28/2017 None abdominal pain Quality intermittent 12/28/2017 None abdominal pain Quality sharp 12/28/2017 None abdominal pain Onset and Resolution sudden in onset 12/28/2017 None abdominal pain Onset of Symptom 7 months ago 12/28/2017 None abdominal pain Timing of Episodes after meals 12/28/2017 None abdominal pain Pertinent Findings bloating 12/28/2017 None low back pain Quality intermittent 10/29/2017 None low back pain Quality worsening 10/29/2017 in the last 4 months low back pain Onset and Resolution ongoing 10/29/2017 None low back pain Quality chronic 10/29/2017 None low back pain Frequency of Episodes increasing 10/29/2017 None low back pain Exacerbating Factors activity 10/29/2017 None depression Onset and Resolution ongoing 10/29/2017 None depression Alleviating Factors medication 10/29/2017 None depression Pertinent Findings anxiety 10/29/2017 None back pain Location thoracic spine 09/21/2017 None back pain Location lumbar-sacral spine 09/21/2017 None back pain Location Cervical spine 09/21/2017 None back pain Quality intermittent 09/21/2017 None back pain Onset and Resolution ongoing 09/21/2017 None back pain Onset of Symptom _ years ago 09/21/2017 None back pain Limitation on Activities moderately limits activities 09/21/2017 None back pain Frequency of Episodes weekly 09/21/2017 4x per week back pain Pertinent Findings extremity numbness 09/21/2017 hands occasionally back pain Pertinent Findings Denies extremity weakness 09/21/2017 None mole check Location-Major in a generalized area 09/21/2017 right hip and left axilla and labia mole check Color brown 09/21/2017 None mole check Pertinent Findings Denies pain 09/21/2017 None Advance Directives No Advance Directive data Encounters Encounter Performer Location Codes Date 17078 EST. PATIENT, LEVEL IV Diagnosis: Gastro-esophageal reflux disease without esophagitis[ICD10: K21.9] Diagnosis: Right upper quadrant pain[ICD10: R10.11] Diagnosis: Encounter for immunization[ICD10: Z23] Lois Jay MD, [facility] CPT-4: 19644 12/28/2017 ([id number]) 16108 EST. PATIENT, LEVEL III Diagnosis: Low back pain[ICD10: M54.5] Diagnosis: Pain in thoracic spine[ICD10: M54.6] Diagnosis: Major depressive disorder, recurrent, mild[ICD10: F33.0] Diagnosis: Generalized anxiety disorder[ICD10: F41.1] [facility] CPT-4: 61116 10/29/2017 OFFICE VISIT, NEW - LEVEL 3 Diagnosis: Generalized anxiety disorder[ICD10: F41.1] Diagnosis: Major depressive disorder, recurrent, mild[ICD10: F33.0] Diagnosis: Pain in thoracic spine[ICD10: M54.6] Diagnosis: Other allergic rhinitis[ICD10: J30.89] Diagnosis: Headache[ICD10: R51] [facility] CPT-4: 10195 09/21/2017 Plan of Care Planned Activity Notes Codes Status Date Care Plan: Referral Order SNOMED-CT : [id number] Pending 01/05/2018 Visit Plan: Esophageal Reflux - the patient has been counseled against excessive intake of caffeine, spicy foods, peppermint, and cinnamon - all of which can exacerbate esophageal reflux. The patient is to take medications as prescribed and call the office if the symptoms are not improving. RUQ pain - will order Gallbladder US and refer if indicated - pt is to notify clinic with any changes or concerns. 12/28/2017 Visit Plan: Esophageal Reflux - the patient has been counseled against excessive intake of caffeine, spicy foods, peppermint, and cinnamon - all of which can exacerbate esophageal reflux. The patient is to take medications as prescribed and call the office if the symptoms are not improving. RUQ pain - will order Gallbladder US and refer if indicated - pt is to notify clinic with any changes or concerns. 12/28/2017 Appointment: Lois Hagen WPtel: [id number] [place] (15 min) Moderate 12/28/2017 Patient Education: Patient Medication Summary Completed 12/28/2017 Appointment: Lois Hagen WPtel: [id number] [place] (15 min) Moderate 11/23/2017 Visit Plan: Low and mid back pain-xray -continue anti inflammatories as directed -discussed PT -will obtain xrays first Anxiety- depression-uncontrolled with zoloft -stop zoloft, start paroxetine-follow up in 1 month, sooner if needed 10/29/2017 Appointment: Tona De La Cruz WPtel: [address] [place], [place] [phone] (30 min) Complex 10/29/2017 Patient Education: Patient Medication Summary Completed 10/29/2017 Visit Plan: Anxiety /depression- the patient has uncontrolled anxiety and will benefit from an increase in SSRI on a daily basis to attempt control of the symptoms of anxiety (tachycardia, overwhelming sensations, stress, insomnia, etc). Pt is aware of the risks and benefits of treatment with the above medications. Headaches-suspect due to TMJ and allergies -recommend flonase daily and mouth guard at night to keep from cletching jaw while sleeping Back pain -recommend rest, stretches and anti inflammatories as directed-call if symptoms do not resolve or if any worse- tiger balm to tight muscles as directed 09/21/2017 Appointment: Tona De La Cruz WPtel: [address] [place], [place] [phone] New Patient 09/21/2017 Patient Education: Patient Medication Summary Completed 09/21/2017 Referral: Mitchell San Referral Initiated Instructions Comment XRAY LUMBAR AND THORACIC SPINE STOP ZOLOFT -START PAROXETINE 20MG DAILY . Low and mid back pain-xray -continue anti inflammatories as directed - discussed PT -will obtain xrays first Tevkskm-bvzotkufgw-rusnarprenuc with zoloft -stop zoloft, start paroxetine- follow up in 1 month, sooner if needed gallbladder ultrasound (not thursday) protonix (reduces acid) Carafate (break up in water and drink) to coat the stomach. . Esophageal Reflux - the patient has been counseled against excessive intake of caffeine, spicy foods, peppermint, and cinnamon - all of which can exacerbate esophageal reflux. The patient is to take medications as prescribed and call the office if the symptoms are not improving. RUQ pain - will order Gallbladder US and refer if indicated - pt is to notify clinic with any changes or concerns. gallbladder ultrasound (not thursday) protonix (reduces acid) Carafate (break up in water and drink) to coat the stomach. . Esophageal Reflux - the patient has been counseled against excessive intake of caffeine, spicy foods, peppermint, and cinnamon - all of which can exacerbate esophageal reflux. The patient is to take medications as prescribed and call the office if the symptoms are not improving. RUQ pain - will order Gallbladder US and refer if indicated - pt is to notify clinic with any changes or concerns. Increase zoloft to 1.5 tab daily flonase nasal spray tiger balm -back massage -stretches . Anxiety /depression- the patient has uncontrolled anxiety and will benefit from an increase in SSRI on a daily basis to attempt control of the symptoms of anxiety (tachycardia, overwhelming sensations, stress, insomnia, etc). Pt is aware of the risks and benefits of treatment with the above medications. Headaches-suspect due to TMJ and allergies -recommend flonase daily and mouth guard at night to keep from cletching jaw while sleeping Back pain -recommend rest, stretches and anti inflammatories as directed-call if symptoms do not resolve or if any worse-tiger balm to tight muscles as directed
--- OUTSIDE RECORDS SUMMARY | 2018-01-07 11:14 | XMS REPORT | CCD ---
Author Author Tona De La Cruz MD, [facility] Address [address] [place] [address] Phone Care Team Providers Care Contract Negotiation Manager Name Role Phone PP Unavailable CCM Unavailable Summary Purpose Interface Exchange Insurance Providers Payer name Policy type / Coverage type Covered democrat ID Effective Begin Date Effective End Date [facility] Commercial Insurance [id number] Unknown Family history Mother Diagnosis Age At Onset Depression Unknown Arthritis Unknown Hyperlipidemia Unknown Father Diagnosis Age At Onset Skin cancer Unknown Hyperlipidemia Unknown Social History Social History Element Codes Description Effective Dates Marital status Unknown Rhys 09/18/2017 Number of children Unknown 3 09/18/2017 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/18/[address]: 691168316 Never smoker 09/18/[address]: 075395992 Never drinks alcohol 09/18/2017 Allergies, Adverse Reactions, Alerts Substance Reaction Codes Entered Date Inactivated Date Status * NO KNOWN DRUG ALLERGIES Unknown 09/21/2017 No Inactive Date Active Past Medical History Illness Codes Condition Status Onset Date Resolved Date Nausea ICD-9: 787.02 ICD-10: R11.0 Active 01/06/2018 Unknown Encounter for immunization ICD-9: V03.82 ICD-10: Z23 [...] Problems Condition Codes Effective Dates Condition Status Nausea ICD-9: 787.02 ICD-10: R11.0 01/06/2018 Active Encounter for immunization ICD-9: V03.82 ICD-10: Z23 [...] Start Date Stop Date Status Fill Instructions promethazine 25 mg/mL injection solution RxNorm: 322330 Milliliter(s) Inj 01/06/2018 01/06/2018 Inactive Protonix 40 mg tablet,delayed release RxNorm: 045836 1 Tablet(s) PO daily 12/28/2017 01/26/2018 Active Carafate 1 gram tablet RxNorm: 822193 1 Tablet(s) PO QID 201701/26/2018 Active paroxetine 20 mg tablet RxNorm: 3941527 1 Tablet(s) PO daily 02/25/2018 Active sertraline 100 mg tablet RxNorm: 392173 1.5 Tablet(s) PO daily 09/21/2017 10/28/2017 Inactive Jencycla 0.35 mg tablet RxNorm: 0022820 1 Tablet(s) PO daily 10/17/2017 Inactive sertraline 100 mg tablet RxNorm: 445494 1 Tablet(s) PO daily No Start Date 09/20/2017 Inactive Medication Administered Medication Codes Instructions Start Date Status promethazine 25 mg/mL injection solution RxNorm: 676505 Milliliter 01/06/2018 Active Immunizations Vaccine Codes Date Status Influenza CVX: 141 12/28/2017 completed Assessments Condition Codes Effective Dates Nausea ICD-10: R11.0 ICD-9: 787.02 01/06/2018 Right upper quadrant pain ICD-10: R10.11 ICD-9: [...] clear 09/21/2017 None Procedures Procedure Codes Date THER/PROPH/DIAG INJ SC/IM CPT-4: 73219 01/06/2018 PROMETHAZINE HCL INJECTION CPT-4: J2550 01/06/2018 IMMUNIZATION ADMIN CPT -4: 88460 12/28/2017 FLU VAC NO PRSV 4 SARI 3 YRS+ CPT-4: 99162 12/28/2017 Vital Signs Date Vital 12/28/2017 Blood Pressure 1: 102/60 Code : 8480-6 BMI: 32.0 Code : 19296-9 Heart Rate 1 : 68 bpm Height: 5'10" SpO2: 98% Weight: 223 lbs 10/29/2017 Blood Pressure 1: 102/76 Code : 8480-6 BMI: 31.3 Code : 65491-8 Heart Rate 1 : 78 bpm Height: 5'10" SpO2: 97% Weight: 218 lbs 09/21/2017 Blood Pressure 1: 110/70 Code : 8480-6 BMI: 31.3 Code : 03661-9 Heart Rate 1 : 76 bpm Height: [...] data Encounters Encounter Performer Location Codes Date [address] EST. PATIENT, LEVEL IV Diagnosis: Gastro-esophageal reflux disease without esophagitis[ICD10: K21.9] Diagnosis: Right upper quadrant pain[ICD10: R10.11] Diagnosis: Encounter for immunization[ICD10: Z23] Lois Jay MD, [facility] CPT-4: 49728 12/28/2017 ([id number]) 69495 EST. PATIENT, LEVEL III Diagnosis: Low back pain[ICD10: M54.5] Diagnosis: Pain in thoracic spine[ICD10: M54.6] Diagnosis: Major depressive disorder, recurrent, mild[ICD10: F33.0] Diagnosis: Generalized anxiety disorder[ICD10: F41.1] [facility] CPT-4: 95855 10/29/2017 OFFICE VISIT, NEW - LEVEL 3 Diagnosis: Generalized anxiety disorder[ICD10: F41.1] Diagnosis: Major depressive disorder, recurrent, mild[ICD10: F33.0] Diagnosis: Pain in thoracic spine[ICD10: M54.6] Diagnosis: Other allergic rhinitis[ICD10: J30.89] Diagnosis: Headache[ICD10: R51] [facility] CPT-4: 18967 09/21/2017 Plan of Care Planned Activity Notes Codes Status Date Patient Education: Patient Medication Summary Completed 01/06/2018 Care Plan: Referral Order SNOMED-CT : [id number] Pending 01/05/2018 Visit Plan: Esophageal Reflux - [...] or concerns. 12/28/2017 Appointment: Lois Hagen WPtel: [facility]5 [facility] (15 min) Moderate 12/28/2017 Patient Education: Patient Medication Summary Completed 12/28/2017 Appointment: Lois Hagen WPtel: [address] [place], [place] [address] (15 min) Moderate 11/23/2017 Visit Plan: Low and mid back pain-xray -continue anti inflammatories as directed -discussed PT -will obtain xrays first Anxiety- depression-uncontrolled with zoloft -stop zoloft, start paroxetine-follow up in 1 month, sooner if needed 10/29/2017 Appointment: Tona De La Cruz WPtel: [address] [place], [place] [phone] (30 min) Complex 10/29/2017 Patient Education: Patient [...] 09/21/2017 Appointment: Tona De La Cruz WPtel: [address] [place], [place] [phone] New Patient 09/21/2017 Patient Education: Patient Medication Summary Completed 09/21/2017 Referral: Mitchell San Referral Initiated Instructions Comment XRAY LUMBAR AND THORACIC SPINE STOP ZOLOFT -START PAROXETINE 20MG DAILY . Low and mid back pain-xray -continue anti inflammatories as directed - discussed PT -will obtain xrays first Qemyafh-jlwpathteb-zbdwrpgfdfck with zoloft -stop zoloft, start paroxetine- follow [...]
--- OUTSIDE RECORDS SUMMARY | 2018-01-07 11:15 | XMS REPORT ---
Author Author YING MAGANA [facility] Address [address] [place] [address] Care Team Providers Care Renewal Specialist Name Role Phone YING MAGANA Unavailable PROBLEMS Type Condition ICD9-CM Code ALG05-UE Code Onset Dates Condition Status SNOMED Code Problem Environmental allergies Z91.09 Active 057821994 Problem Dysuria R30.0 Active 59200648 Problem Major depressive disorder with single episode, remission status unspecified F32.9 Active 85074728 Problem Anxiety F41.9 Active 80199570 Problem Mood disorder F39 Active 58034694 ALLERGIES No Information ENCOUNTERS Encounter Location Date Diagnosis [facility] [address] [phone] June, [facility] [address] [address] Jan, Acute recurrent maxillary sinusitis J01.01 [facility] [address] [address] Oct, Normal in multigravida Z34.80 and 11 weeks gestation of Z3A.11 [facility] [id number] [place] [address] Sep, [facility] [address] [address] Sep, Encounter for test, result unknown Z32.00 [facility] [address] [address] Aug, Major depressive disorder with single episode, remission status unspecified F32.9 [facility] [address] [address] May, Anxiety F41.9 [place] [id number] [place] [address] May, Contact dermatitis and eczema due to plant L24.7 [place] [id number] [place] [address] Apr, Encounter for IUD removal Z30.432 [place] [id number] [place] [phone] Mar, Major depressive disorder with single episode, remission status unspecified F32.9 ; Anxiety F41.9 and Mood disorder F39 [place] [id number] [place] [address] Nov, Dysuria R30.0 ; Vaginal discharge N89.8 ; Acute cystitis without hematuria N30.00 and Environmental allergies Z91.09 [facility] [id number] [place] [address] Sep, Pharyngitis, unspecified etiology J02.9 [place] [id number] [place] [address] Sep, Major depressive disorder with single episode, remission status unspecified F32.9 ; Anxiety F41.9 ; Mood disorder F39 and Dysuria R30.0 [place] [id number] [place] [address] Aug, Major depressive disorder with single episode, remission status unspecified F32.9 [place] [id number] [place] [address] Aug, Major depressive disorder with single episode, remission status unspecified F32.9 ; Anxiety F41.9 and Mood disorder F39 [place] [id number] [place] [address] Aug, IMMUNIZATIONS No Known Immunizations SOCIAL HISTORY Never Assessed REASON FOR VISIT PLAN OF CARE VITAL SIGNS MEDICATIONS Unknown Medications RESULTS No Results PROCEDURES No Known procedures INSTRUCTIONS MEDICATIONS ADMINISTERED No Known Medications MEDICAL (GENERAL) HISTORY Type Description Date Medical History depression Medical History anxiety Surgical History section 2011 Hospitalization History [facility] for 4 days for depression 07/2015 Hospitalization History Surgery/ Child
--- OUTSIDE RECORDS SUMMARY | 2018-01-07 11:15 | XMS REPORT ---
Author Author ERLIN CARRION [facility] Address [address] [place] [address] Care Team Providers Care Environmental Field Professional Name Role Phone ERLIN CARRION Unavailable PROBLEMS Type Condition ICD9-CM Code IAS74-GV Code Onset Dates Condition Status SNOMED Code Problem Environmental allergies Z91.09 Active 989085125 Problem Dysuria R30.0 Active 48996168 Problem Major depressive disorder with single episode, remission status unspecified F32.9 Active 56384130 Problem Anxiety F41.9 Active 45309398 Problem Mood disorder F39 Active 99685855 ALLERGIES No Known Allergies ENCOUNTERS Encounter Location Date Diagnosis [facility] [id number] [place] [address] June, [facility] [address] [address] Jan, Acute recurrent maxillary sinusitis J01.01 [place] [id number] [place] [address] Oct, Normal in multigravida Z34.80 and 11 weeks gestation of Z3A.11 [place] [id number] [place] [address] Sep, [facility] [id number] [place] [address] Sep, Encounter for test, result unknown Z32.00 [facility] [address] [address] Aug, Major depressive disorder with single episode, remission status unspecified F32.9 [facility] [id number] [place] [address] May, Anxiety F41.9 [place] [id number] [place] [address] May, Contact dermatitis and eczema due to plant L24.7 [place] [id number] [place] [address] Apr, Encounter for IUD removal Z30.432 [place] [address] [address] Mar, Major depressive disorder with single episode, remission status unspecified F32.9 ; Anxiety F41.9 and Mood disorder F39 [place] [id number] [place] [address] Nov, Dysuria R30.0 ; Vaginal discharge N89.8 ; Acute cystitis without hematuria N30.00 and Environmental allergies Z91.09 [facility] [id number] [place] [address] Sep, Pharyngitis, unspecified etiology J02.9 [place] [id number] [place] [address] Sep, Major depressive disorder with single episode, remission status unspecified F32.9 ; Anxiety F41.9 ; Mood disorder F39 and Dysuria R30.0 [place] [id number] [place] [address] Aug, Major depressive disorder with single episode, remission status unspecified F32.9 [place] [id number] [place] [address] Aug, Major depressive disorder with single episode, remission status unspecified F32.9 ; Anxiety F41.9 and Mood disorder F39 [place] [id number] [place] [address] Aug, IMMUNIZATIONS No Known Immunizations SOCIAL HISTORY Never Assessed REASON FOR VISIT Transition of Care, PT has sinus problem with nasal drainage and possible sore in her mouth that has been there for a month-Roberta BARNES PLAN OF CARE Activity Details Follow Up Reg alppt Reason: VITAL SIGNS Height 70 in 2017-02-05 Weight 231.3 lbs 2017-02-05 Temperature 98.3 degrees Fahrenheit 2017-02-05 Heart Rate 80 bpm 2017-02-05 Respiratory Rate 18 2017-02-05 BMI 33.18 kg/m2 2017-02-05 Blood pressure systolic 120 mmHg 2017-02-05 Blood pressure diastolic 76 mmHg 2017-02-05 MEDICATIONS Medication Instructions Dosage Frequency Start Date End Date Duration Status Amoxicillin 500 mg Orally 3 times a day 1 capsule 8h Jan, Jan, 07 days Active 28-0.8 MG Active Sertraline HCl 100 MG TAKE ONE TABLET BY MOUTH ONCE DAILY 30 Active RESULTS No Results PROCEDURES No Known procedures INSTRUCTIONS MEDICATIONS ADMINISTERED No Known Medications MEDICAL (GENERAL) HISTORY Type Description Date Medical History depression Medical History anxiety Surgical History section 2011 Hospitalization History [facility] for 4 days for depression 07/2015 Hospitalization History Surgery/ Child
--- OUTSIDE RECORDS SUMMARY | 2018-01-07 11:15 | XMS REPORT | CCD ---
Author Author Tona De La Cruz MD, [facility] Address [address] [place] [address] Phone Care Team Providers Care Program Review Director Name Role Phone PP Unavailable CCM Unavailable Summary Purpose Interface Exchange Insurance Providers Payer name Policy type / Coverage type Covered alliance party ID Effective Begin Date Effective End Date [facility] Commercial Insurance [id number] Unknown Family history Mother Diagnosis Age At Onset Depression Unknown Arthritis Unknown Hyperlipidemia Unknown Father Diagnosis Age At Onset Skin cancer Unknown Hyperlipidemia Unknown Social History Social History Element Codes Description Effective Dates Marital status Unknown Rhys 09/18/2017 Number of children Unknown 3 09/18/2017 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/18/[address]: 440294186 Never smoker 09/18/[address]: 786851237 Never drinks alcohol 09/18/2017 Allergies, Adverse Reactions, [...] Instructions Protonix 40 mg tablet,delayed release RxNorm: 473794 1 Tablet(s) PO daily 12/28/2017 01/26/2018 Active Carafate 1 gram tablet RxNorm: 477462 1 Tablet(s) PO QID 201701/26/2018 Active paroxetine 20 mg tablet RxNorm: 5386466 1 Tablet(s) PO daily 02/25/2018 Active sertraline 100 mg tablet RxNorm: 214646 1.5 Tablet(s) PO daily 09/21/2017 10/28/2017 Inactive Jencycla 0.35 mg tablet RxNorm: 8804849 1 Tablet(s) PO daily 10/17/2017 Inactive sertraline 100 mg tablet RxNorm: 888520 1 Tablet(s) PO daily No Start Date [...] Procedure Codes Date IMMUNIZATION ADMIN CPT -4: 09035 12/28/2017 FLU VAC NO PRSV 4 SARI 3 YRS+ CPT-4: 83247 12/28/2017 Vital Signs Date Vital 12/28/2017 Blood Pressure 1: 102/60 Code : 8480-6 BMI: 32.0 Code : 08130-1 Heart Rate 1 : 68 bpm Height: 5'10" SpO2: 98% Weight: 223 lbs 10/29/2017 Blood Pressure 1: 102/76 Code : 8480-6 BMI: 31.3 Code : 24406-0 Heart Rate 1 : 78 bpm Height: 5'10" SpO2: 97% Weight: 218 lbs 09/21/2017 Blood Pressure 1: 110/70 Code : 8480-6 BMI: 31.3 Code : 05639-9 Heart Rate 1 : 76 bpm Height: [...] data Encounters Encounter Performer Location Codes Date 28785 EST. PATIENT, LEVEL IV Diagnosis: Gastro-esophageal reflux disease without esophagitis[ICD10: K21.9] Diagnosis: Right upper quadrant pain[ICD10: R10.11] Diagnosis: Encounter for immunization[ICD10: Z23] Lois Jay MD, [facility] CPT-4: 04542 12/28/2017 ([id number]) 50594 EST. PATIENT, LEVEL III Diagnosis: Low back pain[ICD10: M54.5] Diagnosis: Pain in thoracic spine[ICD10: M54.6] Diagnosis: Major depressive disorder, recurrent, mild[ICD10: F33.0] Diagnosis: Generalized anxiety disorder[ICD10: F41.1] [facility] CPT-4: 27536 10/29/2017 OFFICE VISIT, NEW - LEVEL 3 Diagnosis: Generalized anxiety disorder[ICD10: F41.1] Diagnosis: Major depressive disorder, recurrent, mild[ICD10: F33.0] Diagnosis: Pain in thoracic spine[ICD10: M54.6] Diagnosis: Other allergic rhinitis[ICD10: J30.89] Diagnosis: Headache[ICD10: R51] [facility] CPT-4: 11886 09/21/2017 Plan of Care Planned Activity Notes Codes Status Date Visit Plan: Esophageal Reflux - the patient [...] or concerns. 12/28/2017 Appointment: Lois Hagen WPtel: [address] [place] [employer] [phone] (15 min) Moderate 12/28/2017 Patient Education: Patient Medication Summary Completed 12/28/2017 Appointment: Lois Hagen WPtel: [address] [employer] [place] [employer] [phone] (15 min) Moderate 11/23/2017 Visit Plan: Low and mid back pain-xray -continue anti inflammatories as directed -discussed PT -will obtain xrays first Anxiety- depression-uncontrolled with zoloft -stop zoloft, start paroxetine-follow up in 1 month, sooner if needed 10/29/2017 Appointment: Tona De La Cruz WPtel: [phone] [place] (30 min) Complex 10/29/2017 Patient Education: Patient [...] 09/21/2017 Appointment[facility] La [facility]el[facility] [phone] [phone] New Patient 09/21/2017 Patient Education: Patient Medication Summary Completed 09/21/2017 Instructions Comment XRAY LUMBAR AND THORACIC SPINE STOP ZOLOFT -START PAROXETINE 20MG DAILY . Low and mid back pain-xray -continue anti inflammatories as directed - discussed PT -will obtain xrays first Dcgjpmc-xrearutdof-hhvnuqavgfga with zoloft -stop zoloft, start paroxetine- follow [...]
--- OUTSIDE RECORDS SUMMARY | 2018-01-07 11:15 | XMS REPORT | CCD ---
Author Author Tona De La Cruz MD, [facility] Address [address] [place] [address] Phone Care Team Providers Care Commercial Accountant Name Role Phone PP Unavailable CCM Unavailable Summary Purpose Interface Exchange Insurance Providers Payer name Policy type / Coverage type Covered green party ID Effective Begin Date Effective End Date [facility] Commercial Insurance [id number] Unknown Family history Mother Diagnosis Age At Onset Depression Unknown Arthritis Unknown Hyperlipidemia Unknown Father Diagnosis Age At Onset Skin cancer Unknown Hyperlipidemia Unknown Social History Social History Element Codes Description Effective Dates Marital status Unknown Rhys 09/18/2017 Number of children Unknown 3 09/18/2017 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/18/[address]: 556613463 Never smoker 09/18/[address]: 473706802 Never drinks alcohol 09/18/2017 Allergies, Adverse Reactions, [...] Instructions Protonix 40 mg tablet,delayed release RxNorm: 450742 1 Tablet(s) PO daily 12/28/2017 01/26/2018 Active Carafate 1 gram tablet RxNorm: 101460 1 Tablet(s) PO QID 201701/26/2018 Active paroxetine 20 mg tablet RxNorm: 0568525 1 Tablet(s) PO daily 02/25/2018 Active sertraline 100 mg tablet RxNorm: 484666 1.5 Tablet(s) PO daily 09/21/2017 10/28/2017 Inactive Jencycla 0.35 mg tablet RxNorm: 3175383 1 Tablet(s) PO daily 10/17/2017 Inactive sertraline 100 mg tablet RxNorm: 274336 1 Tablet(s) PO daily No Start Date [...] Procedure Codes Date IMMUNIZATION ADMIN CPT -4: 18332 12/28/2017 FLU VAC NO PRSV 4 SARI 3 YRS+ CPT-4: 16864 12/28/2017 Vital Signs Date Vital 12/28/2017 Blood Pressure 1: 102/60 Code : 8480-6 BMI: 32.0 Code : 31618-7 Heart Rate 1 : 68 bpm Height: 5'10" SpO2: 98% Weight: 223 lbs 10/29/2017 Blood Pressure 1: 102/76 Code : 8480-6 BMI: 31.3 Code : 27139-8 Heart Rate 1 : 78 bpm Height: 5'10" SpO2: 97% Weight: 218 lbs 09/21/2017 Blood Pressure 1: 110/70 Code : 8480-6 BMI: 31.3 Code : 99177-6 Heart Rate 1 : 76 bpm Height: [...] data Encounters Encounter Performer Location Codes Date [address]17 EST. PATIENT, LEVEL IV Diagnosis: Gastro-esophageal reflux disease without esophagitis[ICD10: K21.9] Diagnosis: Right upper quadrant pain[ICD10: R10.11] Diagnosis: Encounter for immunization[ICD10: Z23] Lois Jay MD, [facility] CPT-4: 96594 12/28/2017 ([id number]) 09541 EST. PATIENT, LEVEL III Diagnosis: Low back pain[ICD10: M54.5] Diagnosis: Pain in thoracic spine[ICD10: M54.6] Diagnosis: Major depressive disorder, recurrent, mild[ICD10: F33.0] Diagnosis: Generalized anxiety disorder[ICD10: F41.1] [facility] CPT-4: 58507 10/29/2017 OFFICE VISIT, NEW - LEVEL 3 Diagnosis: Generalized anxiety disorder[ICD10: F41.1] Diagnosis: Major depressive disorder, recurrent, mild[ICD10: F33.0] Diagnosis: Pain in thoracic spine[ICD10: M54.6] Diagnosis: Other allergic rhinitis[ICD10: J30.89] Diagnosis: Headache[ICD10: R51] [facility] CPT-4: 18413 09/21/2017 Plan of Care Planned Activity Notes [...] or concerns. 12/28/2017 Appointment: Lois Hagen WPtel: [address] [place], [place] [phone] (15 min) Moderate 12/28/2017 Patient Education: Patient Medication Summary Completed 12/28/2017 Appointment: Lois Hagen WPtel: [address] [place], [place] [phone] (15 min) Moderate 11/23/2017 Visit Plan: Low and mid back pain-xray -continue anti inflammatories as directed -discussed PT -will obtain xrays first Anxiety- depression-uncontrolled with zoloft -stop zoloft, start paroxetine-follow up in 1 month, sooner if needed 10/29/2017 Appointment: Tona De La Cruz WPtel: [phone] [place] (30 min) Complex 10/29/2017 Patient Education: [...] Appointment: [facility]el[facility] [phone] [phone] New Patient 09/21/2017 Patient Education: Patient Medication Summary Completed 09/21/2017 Instructions Comment XRAY LUMBAR AND THORACIC SPINE STOP ZOLOFT -START PAROXETINE 20MG DAILY . Low and mid back pain-xray -continue anti inflammatories as directed - discussed PT -will obtain xrays first Hvffaua-thttiusmnl-pxlfxgrftxjt with zoloft -stop zoloft, start paroxetine- follow [...]
--- OUTSIDE RECORDS SUMMARY | 2018-01-07 11:16 | XMS REPORT | Continuity of Care Document ---
Author Author [facility] Organization [facility] Address Unknown Phone Unavailable Allergies Active Description Code Type Severity Reaction Onset Reported/Identified Relationship to Patient Clinical Status Yes No Known Drug Allergies [id number] Drug Allergy Unknown N/A 04/05/2017 Medications There [...] 789.09 ABDOMINAL PAIN, OTHER SPECIFIED SITE 01/05/2017 TED BECERRASEKOU Ot Z36.87 ENCOUNTER FOR SCREENING FOR UN 01/05/2017 TED BECERRA SEKOU Pamela Ot Z3A.19 19 WEEKS GESTATION OF 01/14/2017 TED BECERRA SEKOU Pamela Ot Z36.87 ENCOUNTER FOR SCREENING FOR UN 01/14/2017 TED BECERRA SEKOU Pamela Ot Z3A.19 19 WEEKS GESTATION OF 04/05/2017 TED BECERRA SEKOU Santiago Ot N94.89 OT COND ASSOC W FEMALE GENITAL ORGANS A 04/05/2017 TED BECERRA SEKOU Santiago Ot O26.893 OTH RELATED CONDITIONS, THIRD 04/05/2017 TED BECERRASEKOU Ot O46.93 ANTEPARTUM HEMORRHAGE, UNSPECIFIED, THIR 04/05/2017 TED BECERRA SEKOU Santiago Ot O99.89 OTH DISEASES AND CONDITIONS COMPL PREG/C 04/05/2017 TED BECERRASEKOU Ot Z3A.30 30 WEEKS GESTATION OF 04/06/2017 CASSIUSSEKOU HELLER DO Ot O46.93 ANTEPARTUM HEMORRHAGE, UNSPECIFIED, THIR 04/06/2017 TED BECERRASEKOU Ot Z3A.31 31 WEEKS GESTATION OF 04/09/2017 TED BECERRASEKOU Ot O46.93 ANTEPARTUM HEMORRHAGE, UNSPECIFIED, THIR 04/09/2017 TED BECERRASEKOU Ot Z3A.31 31 WEEKS GESTATION OF 05/15/2017 SEKOU JEAN DO Ot O24.415 GESTATNL DIABETES IN PREG, CTRL BY ORAL 05/15/2017 SEKOU JEAN DO Ot O34.211 MATERN CARE FOR LOW TRANSVERSE SCAR FROM 05/15/2017 SEKOU JEAN DO Ot O70.0 FIRST DEGREE PERINEAL LACERATION DURING 05/15/2017 SEKOU JEAN DO Ot O76 ABNLT IN HEART RATE AND RHYTHM COM 05/15/2017 SEKOU JEAN DO Ot O99.820 STREPTOCOCCUS B CARRIER STATE COMPLICATI 05/15/2017 SEKOU JEAN DO Ot Z23 ENCOUNTER FOR IMMUNIZATION 05/15/2017 SEKOU JEAN DO Ot Z37.0 SINGLE LIVE 05/15/2017 SEKOU JEAN DO Ot Z3A.38 38 WEEKS GESTATION OF 11/02/2017 CHIP PIPER Ot M51.37 OTHER INTERVERTEBRAL DISC DEGENERATION, 11/25/2017 CHIP PIPER Ot M51.37 OTHER INTERVERTEBRAL DISC DEGENERATION, 12/22/2017 KUSH SILVESTRE APRN Ot K82.9 DISEASE OF GALLBLADDER, UNSPECIFIED 12/24/2017 KUSH SILVESTRE APRN Ot K82.9 DISEASE OF GALLBLADDER, UNSPECIFIED 01/06/2018 SEKOU JEAN DO Ot Z36.87 ENCOUNTER FOR SCREENING FOR UN 01/06/2018 SEKOU JEAN DO Ot Z3A.19 19 WEEKS GESTATION OF 01/06/2018 CHIP PIPER Ot M51.37 OTHER INTERVERTEBRAL DISC DEGENERATION, Procedures Code Description Performed By Performed On 74.1 LOW CERVICAL 06/04/2011 [id number] REPAIR PERINEUM SKIN, EXTERNAL APPROACH 05/14/2017 [id number] DELIVERY OF PRODUCTS OF CONCEPTION, EXTE 05/14/2017 Results Test Result Range Genital Culture, Routine - 12/10/15 16:27 Genital Culture, Routine Note Urine Culture, Routine - 12/10/15 16:27 Urine Culture, Routine Note CBC With Differential/Platelet - 11/04/16 10:39 WBC 8.2 x10E3/uL 3.4-10.8 RBC 4.24 x10E6/uL 3.77-5.28 Hemoglobin 12.3 g/dL 11.1-15.9 Hematocrit 37.1 % 34.0-46.6 MCV 88 fL 79-97 MCH 29.0 pg 26.6-33.0 MCHC 33.2 g/dL 31.5-35.7 RDW 13.9 % 12.3-15.4 Platelets 255 x10E3/uL 150-379 Neutrophils 74 % Lymphs 19 % Monocytes 5 % Eos 1 % Basos 1 % Neutrophils (Absolute) 6.1 x10E3/uL 1.4-7.0 Lymphs (Absolute) 1.5 x10E3/uL 0.7-3.1 Monocytes(Absolute) 0.4 x10E3/uL 0.1-0.9 Eos (Absolute) 0.1 x10E3/uL 0.0-0.4 Baso (Absolute) 0.0 x10E3/uL 0.0-0.2 Immature Granulocytes 0 % Immature Grans (Abs) 0.0 x10E3/uL 0.0-0.1 ABO Grouping and Rho(D) Typing - 11/04/16 10:39 ABO Grouping A Rh Factor Positive TSH - 11/04/16 10:39 TSH 1.130 uIU/mL 0.450-4.500 Rubella Antibodies, IgG - 11/04/16 10:39 Rubella Antibodies, IgG 7.25 index Immune >0.99 Antibody Screen - 11/04/16 10:39 Antibody Screen Negative Negative Urine Culture, Routine - 11/04/16 10:39 Urine Culture, Routine Note RUBELLA ANTIBODIES, IgG - 11/04/16 10:39 Rubella Antibodies, IgG 7.25 index Immune >0.99 CULTURE, URINE - 11/04/16 10:39 Urine Culture, Routine Final report NRG Result 1 No growth NRG CULTURE, GENITAL - 11/04/16 10:39 Genital Culture, Routine Final report NRG Result 1 NRG Result 2 NRG Genital Culture, Routine - 11/04/16 10:39 Genital Culture, Routine Note Complete urinalysis with reflex to culture - [...] urine sediment by light microscopy NONE NRG Complete blood count (CBC) with automated white blood cell (WBC) differential - 05/13/17 21:00 Blood leukocytes automated count (number/volume) 13.8 10*3/uL 4.3-11.0 Blood erythrocytes automated count (number/volume) 3.58 10*6/uL 4.35-5.85 Venous blood hemoglobin measurement (mass/volume) 11.2 g/dL 11.5-16.0 Blood hematocrit (volume fraction) 33 % 35-52 Automated erythrocyte mean corpuscular volume 93 [foz_us] 80-99 Automated erythrocyte mean corpuscular hemoglobin (mass per erythrocyte) 31 pg 25-34 Automated erythrocyte mean corpuscular hemoglobin concentration measurement ( mass/volume) 34 g/dL 32-36 Automated erythrocyte distribution width ratio 14.9 % 10.0-14.5 Automated blood platelet count (count/volume) 159 10*3/uL 130-400 Automated blood platelet mean volume measurement 11.0 [foz_us] 7.4-10.4 Automated blood neutrophils/100 leukocytes 84 % 42-75 Automated blood lymphocytes/100 leukocytes 8 % 12-44 Blood monocytes/100 leukocytes 8 % 0-12 Automated blood eosinophils/100 leukocytes 0 % 0-10 Automated blood basophils/100 leukocytes 0 % 0-10 Blood neutrophils automated count (number/volume) 11.7 10*3 1.8-7.8 Blood lymphocytes automated count (number/volume) 1.1 10*3 1.0-4.0 Blood monocytes automated count (number/volume) 1.0 10*3 0.0-1.0 Automated eosinophil count 0.0 10*3/uL 0.0-0.3 Automated blood basophil count (count/volume) 0.0 10*3/uL 0.0-0.1 Blood manual differential performed detection - 05/13/17 21:00 Blood monocytes/100 leukocytes 7 % NRG Manual blood segmented neutrophils/100 leukocytes 73 % NRG Blood band neutrophils/100 leukocytes 11 % NRG Manual blood lymphocytes/100 leukocytes 8 % NRG Manual eosinophils/100 leukocytes in nose 0 % NRG Manual blood basophils/100 leukocytes 1 % NRG Blood erythrocyte morphology finding identification NORMAL NRG Blood type T Indirect antibody screen panel - 05/13/17 21:00 ABO+Rh group AP NRG Transfusion band number [id number] NRG Blood group antibody screen NEGATIVE NRG Complete blood count (CBC) with automated white blood cell (WBC) differential - 05/15/17 07:34 Blood leukocytes automated count (number/volume) 11.9 10*3/uL 4.3-11.0 Blood erythrocytes automated count (number/volume) 3.58 10*6/uL 4.35-5.85 Venous blood hemoglobin measurement (mass/volume) 11.1 g/dL 11.5-16.0 Blood hematocrit (volume fraction) 34 % 35-52 Automated erythrocyte mean corpuscular volume 95 [foz_us] 80-99 Automated erythrocyte mean corpuscular hemoglobin (mass per erythrocyte) 31 pg 25-34 Automated erythrocyte mean corpuscular hemoglobin concentration measurement ( mass/volume) 33 g/dL 32-36 Automated erythrocyte distribution width ratio 14.9 % 10.0-14.5 Automated blood platelet count (count/volume) 174 10*3/uL 130-400 Automated blood platelet mean volume measurement 11.0 [foz_us] 7.4-10.4 Automated blood neutrophils/100 leukocytes 75 % 42-75 Automated blood lymphocytes/100 leukocytes 17 % 12-44 Blood monocytes/100 leukocytes 6 % 0-12 Automated blood eosinophils/100 leukocytes 2 % 0-10 Automated blood basophils/100 leukocytes 0 % 0-10 Blood neutrophils automated count (number/volume) 8.9 10*3 1.8-7.8 Blood lymphocytes automated count (number/volume) 2.0 10*3 1.0-4.0 Blood monocytes automated count (number/volume) 0.7 10*3 0.0-1.0 Automated eosinophil count 0.2 10*3/uL 0.0-0.3 Automated blood basophil count (count/volume) 0.1 10*3/uL 0.0-0.1 Encounters ACCT No. Visit Date/Time Discharge Status Pt. Type Provider Facility Loc./Unit Complaint [id number] 12/30/2017 08:54:00 12/30/2017 23:59:59 CLS Preadmit CHIP PIPER [facility] RAD RUQ PAIN [id number] 12/22/2017 18:50:00 12/22/2017 19:50:00 DIS Emergency SILVESTREKUSH CAT BREEDER [facility] ER GALLBLADDER PAIN [id number] 10/30/2017 09:41:00 10/30/2017 23:59:59 CLS Outpatient CHIP PIPER [facility] RAD MID AND LOW BACK PAIN [id number] 05/13/2017 20:47:00 05/15/2017 13:30:00 DIS Inpatient SEKOU JEAN DO [facility] LDRP LABOR [id number] 05/14/2017 06:30:00 05/14/2017 23:59:59 CLS Preadmit SEKOU JEAN DO INDUCTION [id number] 04/06/2017 20:58:00 04/06/2017 21:20:00 DIS Outpatient SEKOU JEAN DO [facility] WSo BETEMETHASONE INJECTION [id number] 04/05/2017 21:38:00 04/05/2017 23:11:00 DIS Outpatient SEKOU JEAN DO [facility] WSo BLEEDING CRAMPING [id number] 01/02/2017 11:59:00 01/02/2017 23:59:59 CLS Outpatient SEKOU JEAN DO [facility] RAD Z33.1 [id number] 11/10/2016 15:41:00 11/10/2016 23:59:59 CLS Preadmit JHOAN BIRCH MD [facility] RAD Z34.80 [id number] 07/06/2015 15:04:00 07/06/2015 21:02:00 DIS Emergency KATTY PEDRO, FLO L [facility] ER SUICIDAL [id number] 01/06/2018 12:25:00 ACT Outpatient MONSERRAT FLOR, LYNN Beckford [facility] RAD GALLSTONES [id number] 06/18/2011 15:06:00 Document Registration [id number] 06/03/2011 21:40:00 Document Registration [id number] 04/28/2011 07:58:00 Document Registration [id number] 02/17/2011 21:47:00 Document Registration [id number] 12/13/2015 10:05:00 Document Registration [id number] 11/06/2016 12:08:00 Document Registration [id number] 12/31/2017 11:06:00 12/31/2017 23:59:00 DIS Outpatient JHOAN SOLOMON [id number] 12/12/2015 18:06:00 Document Registration [id number] 11/06/2016 03:08:00 Document Registration [id number] 02/05/2017 11:20:00 02/05/2017 23:59:59 CLS Outpatient SHEYLA FLOR, ERLIN [facility] [id number] 11/04/2016 10:00:00 Document Registration [id number] 11/07/2016 13:06:00 Document Registration [id number] 09/15/2017 15:33:40 09/15/2017 23:59:59 CLS Outpatient
--- OUTSIDE RECORDS SUMMARY | 2018-01-07 11:16 | XMS REPORT ---
Author Author JHOAN BIRCH Organization [facility] Address [address] [place] [address] Care Team Providers Care Beta Tester Name Role Phone JHOAN BIRCH Unavailable PROBLEMS Type Condition ICD9-CM Code [id number] Code Onset Dates Condition Status SNOMED Code Problem Environmental allergies Z91.09 Active 697975977 Problem Dysuria R30.0 Active 39154858 Problem Major depressive disorder with single episode, remission status unspecified F32.9 Active 75344371 Problem Anxiety F41.9 Active 92271798 Problem Mood disorder F39 Active 93522929 ALLERGIES No Known Allergies ENCOUNTERS Encounter Location Date Diagnosis [place] [id number] [place] [id number] [place] [address]99[address] Jan, Acute recurrent maxillary sinusitis J01.01 [place] [id number] [place] [address] Oct, Normal in multigravida Z34.80 and 11 weeks gestation of Z3A.11 [place] [id number] [place] [address] 0[address]- [address] Sep, [place] [id number] [place] [address] 59489- [address]240 Sep, Encounter for test, result unknown Z32.00 [facility] [id number] [place] [address] 00[address] Aug, Major depressive disorder with single episode, remission status unspecified F32.9 [facility] [id number] [place] [address] 33053- 3626 May, Anxiety F41.9 [place] [id number] [place] [address] 62291- 8926 May, Contact dermatitis and eczema due to plant L24.7 [facility] [id number] [place] [address] 91602- 4169 Apr, Encounter for IUD removal Z30.432 [place] [id number] [place], [place] [phone] Mar, Major depressive disorder with single episode, remission status unspecified F32.9 ; Anxiety F41.9 and Mood disorder F39 [place] [address] [address] Nov, Dysuria R30.0 ; Vaginal discharge N89.8 ; Acute cystitis without hematuria N30.00 and Environmental allergies Z91.09 [facility] [id number] [place] [address] Sep, Pharyngitis, unspecified etiology J02.9 [place] [address] [address] Sep, Major depressive disorder with single episode, remission status unspecified F32.9 ; Anxiety F41.9 ; Mood disorder F39 and Dysuria R30.0 [place] [id number] [place] [address] 86301- [address] Aug, Major depressive disorder with single episode, remission status unspecified F32.9 [place] [id number] [place] [address] 25419- 79[address] Aug, Major depressive disorder with single episode, remission status unspecified F32.9 ; Anxiety F41.9 and Mood disorder F39 [place] [address] [address] Aug, IMMUNIZATIONS No Known Immunizations SOCIAL HISTORY Never Assessed REASON FOR VISIT OB-intake-- luba mack PLAN OF CARE Activity Details Follow Up Referral to OB Reason: VITAL SIGNS Height 70 in 2016-11-04 Weight 231.0 lbs 2016-11-04 Temperature 98.0 degrees Fahrenheit 2016-11-04 Heart Rate 78 bpm 2016-11-04 Respiratory Rate 18 2016-11-04 BMI 33.145 kg/m2 2016-11-04 Blood pressure systolic 120 mmHg 2016-11-04 Blood pressure diastolic 76 mmHg 2016-11-04 MEDICATIONS Medication Instructions Dosage Frequency Start Date End Date Duration Status Sertraline HCl 100 mg TAKE ONE TABLET BY MOUTH ONCE DAILY 30 Active 28-0.8 MG Active RESULTS Name Result Date Reference Range TSH () 2016-11-04 TSH 1.130 0.450-4.500 CBC 2016-11-04 WBC 8.2 3.4-10.8 RBC 4.24 3.77-5.28 Hemoglobin 12.3 11.1-15.9 Hematocrit 37.1 34.0-46.6 MCV 88 79-97 MCH 29.0 26.6-33.0 MCHC 33.2 31.5-35.7 RDW 13.9 12.3-15.4 Platelets 255 150-379 Neutrophils 74 Lymphs 19 Monocytes 5 Eos 1 Basos 1 Neutrophils (Absolute) 6.1 1.4-7.0 Lymphs (Absolute) 1.5 0.7-3.1 Monocytes(Absolute) 0.4 0.1-0.9 Eos (Absolute) 0.1 0.0-0.4 Baso (Absolute) 0.0 0.0-0.2 Immature Granulocytes 0 Immature Grans (Abs) 0.0 0.0-0.1 ANTIBODY SCREEN 2016-11-04 Antibody Screen Negative Negative BLOOD TYPE/RH FACTOR 2016-11-04 ABO Grouping A Rh Factor Positive RUBELLA ANTIBODIES, IgG 2016-11-04 Rubella Antibodies, IgG 7.25 Immune >0.99 CULTURE, URINE 2016-11-04 Urine Culture, Routine Final report Result 1 No growth TRICHOMONAS (IN HOUSE) 2016-11-04 TRICHOMONAS Negative Control + Lot # [id number] Exp date 11/2017 URINE DRUG SCREEN (IN HOUSE) 2016-11-04 Lot # [id number] Exp date 01/2018 Control neg COCAINE neg AMPH neg MTD neg THC neg OPIATE neg BENZO neg PCP neg BAR neg OXY neg MAMP neg TCA neg BUP neg MDMA neg UA LONG DIP (IN HOUSE) 2016-11-04 Lot # [id number] Exp date 06/2017 Clarity clear Color yellow Odor no GLU neg MARRY neg KET neg SG 1.025 BLO neg pH 6.5 Protein neg URO 6.5 NIT neg BERONICA neg Lot # Exp date BACTERIAL VAGINOSIS (IN HOUSE) 2016-11-04 RESULTS Negative Control + Lot # [id number] Exp date 11/2017 CULTURE, GENITAL 2016-11-04 Genital Culture, Routine Final report Result 1 Result 2 GC/CHLAM PROBE (STATE) 2016-11-04 CHLAMYDIA negative GC negative SYPHILIS (STATE) 2016-11-04 HIV (STATE) 2016-11-04 HEP B SURFACE ANTIGEN (STATE) 2016-11-04 HEP B ANTIBODY non reactive HEP B ANTIBODY (RML) HEP B ANTIBODY (STATE) PROCEDURES Procedure Date Ordered Result Body Site RUBELLA ANTIBODY Nov 04, 2016 COMPLETE CBC W/AUTO DIFF WBC Nov 04, 2016 BLOOD TYPING, RH (D) Nov 04, 2016 RBC ANTIBODY SCREEN Nov 04, 2016 URINE CULTURE/COLONY COUNT Nov 04, 2016 No Charge Nov 04, 2016 ASSAY THYROID STIM HORMONE Nov 04, 2016 BLOOD TYPING, ABO Nov 04, 2016 CULTURE, BACTERIA, OTHER Nov 04, 2016 URINALYSIS, AUTO, W/O SCOPE Nov 04, 2016 TRICHOMONAS ASSAY W/OPTIC Nov 04, 2016 VENIPUNCT, ROUTINE* Nov 04, 2016 DRUG TEST PRSMV DIR OPT OBS Nov 04, 2016 INSTRUCTIONS MEDICATIONS ADMINISTERED No Known Medications MEDICAL (GENERAL) HISTORY Type Description Date Medical History depression Medical History anxiety Surgical History section 2011 Hospitalization History [facility] for 4 days for depression 07/2015 Hospitalization History Surgery/ Child
--- OUTSIDE RECORDS SUMMARY | 2018-01-07 11:16 | XMS REPORT ---
Author Author SHARON VANG [facility] Address [address] [place] [address] Care Team Providers Care Business Economist Name Role Phone SHARON VANG Unavailable PROBLEMS Type Condition ICD9-CM Code ACW59-UE Code Onset Dates Condition Status SNOMED Code Problem Environmental allergies Z91.09 Active 184743880 Problem Dysuria R30.0 Active 27493941 Problem Major depressive disorder with single episode, remission status unspecified F32.9 Active 08033195 Problem Anxiety F41.9 Active 37654593 Problem Mood disorder F39 Active 44817883 ALLERGIES No Information ENCOUNTERS Encounter Location Date Diagnosis [address] [address] Jan, Acute recurrent maxillary sinusitis J01.01 [place] [address] [address] Oct, Normal in multigravida Z34.80 and 11 weeks gestation of Z3A.11 [place] [id number] [place] [address] 59805- [address] Sep, [place] [id number] [place] [address] 94783- 2846 Sep, Encounter for test, result unknown Z32.00 [place] [id number] [place] [address] 95934- 6346 Aug, Major depressive disorder with single episode, remission status unspecified F32.9 [place] [id number] [place] [address] 70686- 5268 May, Anxiety F41.9 [place] [id number] [place] [address] 59693- 2074 May, Contact dermatitis and eczema due to plant L24.7 [facility] [id number] [place] [address] 46441- 9[address] Apr, Encounter for IUD removal Z30.432 [place] [id number] [place] [address] 12879- 9797 Mar, Major depressive disorder with single episode, remission status unspecified F32.9 ; Anxiety F41.9 and Mood disorder F39 [place] [id number] [place] [address] 98050- 3042 Nov, Dysuria R30.0 ; Vaginal discharge N89.8 ; Acute cystitis without hematuria N30.00 and Environmental allergies Z91.09 [facility] [id number] [place] [address] 79[address] -[address] Sep, Pharyngitis, unspecified etiology J02.9 [place] [address] [address] Sep, Major depressive disorder with single episode, remission status unspecified F32.9 ; Anxiety F41.9 ; Mood disorder F39 and Dysuria R30.0 [place] [id number] [place] [address] 15210- 2573 Aug, Major depressive disorder with single episode, remission status unspecified F32.9 [place] [id number] [place] [address] 06097- 8719 Aug, Major depressive disorder with single episode, remission status unspecified F32.9 ; Anxiety F41.9 and Mood disorder F39 [place] [id number] [place] [address] 35787- 1450 Aug, IMMUNIZATIONS No Known Immunizations SOCIAL HISTORY Never Assessed REASON FOR VISIT Lab (walk-in) PLAN OF CARE VITAL SIGNS MEDICATIONS Medication Instructions Dosage Frequency Start Date End Date Duration Status Sertraline HCl 100 mg TAKE ONE TABLET BY MOUTH ONCE DAILY 30 Active RESULTS No Results PROCEDURES Procedure Date Ordered Result Body Site URINE TEST Oct 24, 2016 INSTRUCTIONS MEDICATIONS ADMINISTERED No Known Medications MEDICAL (GENERAL) HISTORY Type Description Date Medical History depression Medical History anxiety Surgical History section 2011 Hospitalization History [facility] for 4 days for depression 07/2015 Hospitalization History Surgery/ Child
[2018-01-07] MEDS: LACTATED RINGERS 1,000 ML IV PRN ×2 (11:23→13:47)
[2018-01-07] MEDS ORDERED: ceFAZolin 2 GM IV Premixed 50 ML IV ONE (11:30)
[2018-01-07] MEDS ORDERED: metroNIDAZOLE 500MG/100ML IVPB 100 ML IV ONE (11:30)
[2018-01-07] MEDS ORDERED: SUCCINYLCHOLINE INJ 100 MG/5 ML SYR ONE (11:37)
[2018-01-07] MEDS ORDERED: LIDOCAINE PF 2% 5 ML (XYLOCAINE) VIAL ONE (11:37)
[2018-01-07] MEDS ORDERED: ONDANSETRON 4 MG/2 ML (SDV) Z0FRAN ONE (11:37)
[2018-01-07] MEDS ORDERED: proPOfol 200 MG/20 ML (DIPRIVAN) VIAL IV ONE (11:37)
[2018-01-07] MEDS ORDERED: ROCURONIUM 10 MG/ML 5 ML SYRINGE IV ONE (11:37)
[2018-01-07 11:38] VITALS: BP 107/74
[2018-01-07] MEDS ORDERED: MIDAZOLAM 2 MG/2 ML (VERSED) VIAL ONE (11:38)
[2018-01-07] MEDS ORDERED: fentaNYL INJECTION 100 MCG/2 ML AMP ONE ×2 (11:38→13:59)
[2018-01-07] MEDS ORDERED: DEXAMETHASONE 10 MG/ML (DECADRON) 1 ML VIAL ONE (11:38)
--- NOTE | 2018-01-07 12:57 | Progress Note-Pre Operative ---
Pre-Operative Progress Note H&P Reviewed The H&P was reviewed, patient examined and no changes noted. Date Seen by Provider: Jan 07, 2018 Time Seen by Provider: 09:45 Date H&P Reviewed: Jan 07, 2018 Time H&P Reviewed: 12:57 Pre-Operative Diagnosis: Acute cholecystitis LYNN GERMAN MD Jan 07, 2018 12:57
[2018-01-07] MEDS ORDERED: PHENYLEPHRINE 100 MCG/ML 10 ML (ANESTHESIA) SYR ONE (13:23)
[2018-01-07] MEDS ORDERED: NEOSTIGMINE 1 MG/ML 5 ML SYRINGE ONE (13:50)
[2018-01-07] MEDS ORDERED: GLYCOPYRROLATE 0.2 MG/ML (ROBINUL) 2 ML VIAL ONE (13:50)
[2018-01-07] MEDS ORDERED: SEVOFLURANE (ULTANE) 15 ML INHAL SOLN ONE (13:56)
[2018-01-07] MEDS ORDERED: ACHD5005 PO (14:17)
--- NOTE | 2018-01-07 14:17 | Operative Report ---
Operative Report Date of Procedure/Surgery Jan 07, 2018 Surgeon (s) LYNN GERMAN MD Shopper Insights Manager (s): N/A Post-Operative Diagnosis acute cholecystitis due to gallstones Normal cholangiogram Procedure Performed Robotic-assisted cholecystectomy Intraoperative cholangiogram Description of Procedure Anesthesia Type: General Estimated blood loss (mL): Minimal Specimen(s) collected/removed Gallbladder Description of the Procedure Indication for the procedure: This lady presented with symptomatic gallstones and features of acute cholecystitis. In addition, her bilirubin was elevated, raising the concern for choledocholithiasis. She was offered prompt cholecystectomy using minimally invasive technique with robotic assistance, combined with intraoperative cholangiogram. Informed consent was obtained after reviewing the operative details and complications of wound infection and bile leak. Description of the procedure: She was placed supine on the operating table and general anesthesia induced. 2 g of Ancef and 500 mg of Flagyl were administered intravenously as prophylaxis against wound infection. Compression devices were placed around her legs, to minimize the risk of venous thrombosis Abdomen was prepared and draped in the usual sterile manner. An infraumbilical incision was made and pneumoperitoneum established using a Veress needle. Intra-abdominal pressure was maintained at 15 mmHg, using carbon dioxide insufflation. A 12 mm trocar was placed and anatomy visualized using the high definition, 3-dimensional laparoscope, associated with da Steven system. Under direct view, I placed an 8 mm trocar over each side of the abdomen, followed by a 5 mm trocar over the left upper quadrant. She was then turned into reverse Trendelenburg position, with the right side tilted up. The robotic system was then docked in place. Laparoscopic survey confirmed acute cholecystitis. Fundus of the gallbladder was retracted cephalad and the infundibulum grasped with Cadiere forceps. Cholangiogram was obtained using a Taut catheter. It revealed normal anatomy with no filling defects within the common bile duct. The contrast flowed freely into the duodenum and a small portion of it refluxed into the pancreatic duct. The catheter was then removed and the cystic duct controlled using locking clips. Cystic artery was managed in a similar fashion. Cholecystectomy was then completed using the hook cautery. Gallbladder was then placed in an Endo Catch bag and removed via the subumbilical trocar site. The fascia over this incision was closed using #1 Vicryl, in an interrupted fashion. Skin incisions were closed using 4-0 Vicryl , in a subcuticular fashion. 0.5 percent Marcaine with epinephrine was infiltrated along the incisions, both preemptively and at the conclusion of the operation. She tolerated the procedure well, was extubated in the operating room and taken to the recovery room in a stable condition Findings of the Procedure See op report Allergies and Home Medications Allergies Coded Allergies: No Known Drug Allergies (Unverified , 04/05/17) Home Medications Ondansetron HCl 4 Mg Tab, 4 MG PO Q6H PRN for NAUSEA/VOMITING, (Reported) Pantoprazole Sodium 40 Mg Tablet.dr, 40 MG PO DAILY, (Reported) Paroxetine HCl 20 Mg Tablet, 20 MG PO DAILY, (Reported) Sucralfate 1 Gm Tablet, 1 GM PO QID, (Reported) [bcp] , 1 TAB PO DAILY, (Reported) Patient Home Medication List Home Medication List Reviewed: Yes LYNN GERMAN MD Jan 07, 2018 14:17
--- NOTE | 2018-01-07 14:18 | Discharge Inst-Simple/Standard ---
Discharge Inst-Standard Discharge Medications New, Converted or Re-Newed RX: RX on Chart Patient Instructions/Follow Up Plan of Care/Instructions/FU: Band-Aids off in 48 hours. Incentive spirometry. Follow-up in 2 weeks. Activity as Tolerated: Yes Discharge Diet: No Restrictions LYNN GERMAN MD Jan 07, 2018 14:18
[2018-01-07] MEDS ORDERED: HYDROmorphone 2 MG/ML VIAL (DILAUDID) IV ONE (14:30)
[2018-01-07] MEDS ORDERED: morphine INJ 10 MG/ML 1ML (SYR OR VIAL) IVP ONE (14:30)
[2018-01-07] MEDS ORDERED: ONDANSETRON 4 MG/2 ML (SDV) Z0FRAN IVP PRN (14:30)
--- NOTE | 2018-01-07 14:50 | Anesthesia-General Post-Op ---
General Patient Condition Mental Status/LOC: Same as Preop Cardiovascular: Satisfactory Nausea/Vomiting: Absent Respiratory: Satisfactory Pain: Controlled Complications: Absent Post Op Complications Complications None Follow Up Care/Instructions Patient Instructions None needed. Anesthesia/Patient Condition Patient Condition Patient is doing well, no complaints, stable vital signs, no apparent adverse anesthesia problems. No complications reported per nursing. BNE GUIDO CRNA Jan 07, 2018 14:50
[2018-01-07 15:10] VITALS: BP 130/91
[2018-01-07 15:50] VITALS: BP 128/90
--- NOTE | 2018-01-07 16:11 | Diagnostic Imaging Report ---
Indication: Fluoroscopy for intraoperative cholangiogram. Fluoroscopy was provided in OR during intraoperative cholangiogram. 32 seconds of fluoroscopy was utilized. Image demonstrates contrast being injected via the cystic duct remnant. The extrahepatic bile duct is normal caliber. No filling defects are seen. Impression: Fluoroscopy during intraoperative cholangiogram. Dictated by: Dictated on workstation # [id number]
[2018-01-07 16:20] VITALS: BP 121/75
[2018-01-07 16:55] VITALS: BP 121/75
== END 2018-01-07 16:55 | disposition home or self-care (01) ==
LOC: SDC 10:34
PROVIDERS: ATTEND Surgery
DX: K80.00 Calculus of gallbladder with acute cholecystitis without obstruction (principal); K21.9 Gastro-esophageal reflux disease without esophagitis
CPT/HCPCS: 84703; 88304

== ENCOUNTER 2018-01-11 22:48 | Emergency (ER) | payer OTHER ==
[~2018-01-11] VITALS: Ht 177.8 cm; Wt 99.8 kg
--- OUTSIDE RECORDS SUMMARY | 2018-01-11 22:55 | XMS REPORT | Continuity of Care Document ---
Author Author [facility] Organization [facility] Address Unknown Phone Unavailable Allergies Active Description Code Type Severity Reaction Onset Reported/Identified Relationship to Patient Clinical Status Yes No Known Drug Allergies [id number] Drug Allergy Unknown N/A 04/05/2017 Medications There [...] PIPER Ot M51.37 OTHER INTERVERTEBRAL DISC DEGENERATION, 01/06/2018 MONSERRAT FLOR, LYNN Beckford Ot Z01.818 ENCOUNTER FOR OTHER PREPROCEDURAL EXAMIN 01/07/2018 SEKOU JEAN DO S Ot Z36.87 ENCOUNTER FOR SCREENING FOR UN 01/07/2018 SEKOU JEAN DO S Ot Z3A.19 19 WEEKS GESTATION OF 01/07/2018 CHIP PIPER Ot M51.37 OTHER INTERVERTEBRAL DISC DEGENERATION, 01/08/2018 MONSERRAT FLOR, LYNN Beckford Ot K21.9 GASTRO-ESOPHAGEAL REFLUX DISEASE WITHOUT 01/08/2018 MONSERRAT FLOR, LYNN Beckford Ot K80.00 CALCULUS OF GALLBLADDER W ACUTE CHOLECYS Procedures Code Description Performed By Performed On 74.1 LOW CERVICAL 06/04/2011 [id number] REPAIR PERINEUM SKIN, EXTERNAL APPROACH 05/14/2017 [id number] DELIVERY OF PRODUCTS OF CONCEPTION, EXTE 05/14/2017 [...] ABO+Rh group AP NRG Transfusion band number [id number] NRG Blood group antibody screen NEGATIVE NRG [...] blood basophil count (count/volume) 0.1 10*3/uL 0.0-0.1 Urine beta human chorionic gonadotropin (hCG) measurement - 01/07/18 10:50 Urine beta human chorionic gonadotropin (hCG) measurement NEGATIVE NEGATIVE Encounters ACCT No. Visit Date/Time Discharge Status Pt. Type Provider Facility Loc./Unit Complaint [id number] 01/07/2018 10:34:00 01/07/2018 23:59:59 CLS Outpatient LYNN GERMAN MD [facility] SDC GALLSTONES [id number] 01/06/2018 12:25:00 01/06/2018 23:59:59 CLS Outpatient LYNN GERMAN MD [facility] RAD GALLSTONES [id number] 01/06/2018 13:38:00 01/06/2018 14:33:00 DIS Outpatient LYNN GERMAN MD [facility] PREOP GALLSTONES [id number] 12/30/2017 08:54:00 12/30/2017 23:59:59 CLS Preadmit CHIP PIPER [facility] RAD RUQ PAIN [id number] 12/22/2017 18:50:00 12/22/2017 19:50:00 DIS Emergency KUSH SILVESTRE APRN [facility] ER GALLBLADDER PAIN [id number] 10/30/2017 09:41:00 10/30/2017 23:59:59 CLS Outpatient VERONIQUECHIP ADDISON [facility] RAD MID AND LOW BACK PAIN [id number] 05/13/2017 20:47:00 05/15/2017 13:30:00 DIS Inpatient SEKOU JEAN DO [facility] LDRP LABOR [id number] 05/14/2017 06:30:00 05/14/2017 23:59:59 CLS Preadmit SEKOU JEAN DO INDUCTION [id number] 04/06/2017 20:58:00 04/06/2017 21:20:00 DIS Outpatient SEKOU JEAN DO [facility] WSo BETEMETHASONE INJECTION [id number] 04/05/2017 21:38:00 04/05/2017 23:11:00 DIS Outpatient SEKOU JEAN DO [facility] WSo BLEEDING CRAMPING [id number] 01/02/2017 11:59:00 01/02/2017 23:59:59 CLS Outpatient SEKOU JEAN DO [facility] RAD Z33.1 [id number] 11/10/2016 15:41:00 11/10/2016 23:59:59 CLS Preadmit JHOAN BIRCH MD [facility] RAD Z34.80 [id number] 07/06/2015 15:04:00 07/06/2015 21:02:00 DIS Emergency FLO GRANADO [facility] ER SUICIDAL [id number] 06/18/2011 15:06:00 Document Registration [id number] 06/03/2011 21:40:00 Document Registration [id number] 04/28/2011 07:58:00 Document Registration [id number] 02/17/2011 21:47:00 Document Registration [id number] 12/13/2015 10:05:00 Document Registration [id number] 11/06/2016 12:08:00 Document Registration [id number] 12/31/2017 11:06:00 12/31/2017 23:59:00 DIS Outpatient JHOAN SOLOMON [id number] 12/12/2015 18:06:00 Document Registration [id number] 11/06/2016 03:08:00 Document Registration [id number] 02/05/2017 11:20:00 02/05/2017 23:59:59 CLS Out[id number] 11/04/2016 10:00:00 Document Registration [id number] 11/07/2016 13:06:00 Document Registration [id number] 09/15/2017 15:33:40 09/15/2017 23:59:59 CLS Outpatient
[2018-01-11] MEDS ORDERED: NS IV 1000 ML 1,000 ML IV ONE (23:29)
[2018-01-11] MEDS ORDERED: SERT100T8 (23:29)
[2018-01-11] MEDS ORDERED: NORE0.3518 (23:29)
[2018-01-11 23:40] LABS: BASOPHILS % (AUTO) 0 % (0-10); EOSINOPHILS # (AUTO) 0.2 10^3/uL (0.0-0.3); EOSINOPHILS % (AUTO) 2 % (0-10); HEMATOCRIT 34 % (35-52); HEMOGLOBIN 11.4 G/DL (11.5-16.0); LYMPHOCYTES # (AUTO) 0.6 X 10^3 (1.0-4.0); LYMPHOCYTES % (AUTO) 7 % (12-44); MEAN CORPUSCULAR HEMOGLOBIN 30 PG (25-34); MEAN CORPUSCULAR HGB CONC 33 G/DL (32-36); MEAN CORPUSCULAR VOLUME 90 FL (80-99); MEAN PLATELET VOLUME 9.7 FL (7.4-10.4); MONOCYTES % (AUTO) 1 % (0-12); NEUTROPHILS # (AUTO) 7.4 X 10^3 (1.8-7.8); NEUTROPHILS % (AUTO) 91 % (42-75); PLATELET COUNT 280 10^3/uL (130-400); RED CELL DISTRIBUTION WIDTH 12.1 % (10.0-14.5); WHITE BLOOD COUNT 8.2 10^3/uL (4.3-11.0)
[2018-01-11 23:54] LABS: ALANINE AMINOTRANSFERASE 46 U/L (0-55); ALKALINE PHOSPHATASE 85 U/L (40-136); BILIRUBIN,TOTAL 0.7 MG/DL (0.1-1.0); BUN/CREATININE RATIO 10; CALCIUM 9.1 MG/DL (8.5-10.1); CARBON DIOXIDE 23 MMOL/L (21-32); CHLORIDE 104 MMOL/L (98-107); CREATININE SERUM 0.93 MG/DL (0.60-1.30); GFR ESTIMATED > 60; GLUCOSE 159 MG/DL (70-105); LIPASE 40 U/L (8-78); POTASSIUM 3.3 MMOL/L (3.6-5.0); SODIUM 139 MMOL/L (135-145)
[2018-01-12 00:26] LABS: CLARITY,URINE SLIGHTLY CLOUDY; COLOR,URINE YELLOW; GLUCOSE, URINE (UA) NEGATIVE (NEGATIVE); KETONES,URINE NEGATIVE (NEGATIVE); NITRITE,URINE NEGATIVE (NEGATIVE); PH,URINE 7 (5-9); PROTEIN,URINE 1+ (NEGATIVE)
[2018-01-12 00:27] LABS: BACTERIA,URINE MODERATE /HPF; BILIRUBIN,URINE NEGATIVE (NEGATIVE); LEUKOCYTE ESTERASE ,URINE 3+ (NEGATIVE); RBC,URINE 50-100 /HPF; UROBILINOGEN,URINE 1 MG/DL (NORMAL); WBC,URINE 50-100 /HPF
[2018-01-12] MEDS ORDERED: cefTRIAXone FOR IV USE 1,000 MG in NS (IVPB) 50 ML IV ONE (01:15)
[2018-01-12 01:17] LABS: EOSINOPHILS % (MANUAL) 5 %; LYMPHOCYTES % (MANUAL) 6 %; NEUTROPHILS % (MANUAL) 89 %
[2018-01-12] MEDS ORDERED: CEPH-507 PO (01:26)
--- NOTE | 2018-01-12 01:27 | ED General ---
General Chief Complaint: Fever-Adult/Adol Stated Complaint: POST SURGERY/FEVER/PAIN Nursing Triage Note: fever, bodyache, chills/hot flashes Nursing Sepsis Screen: No Definite Risk Source of Information: Patient Exam Limitations: No Limitations History of Present Illness Date Seen by Provider: Jan 11, 2018 Time Seen by Provider: 22:57 Initial Comments This 27-year-old woman presents to the emergency room postoperative day number 4 after laparoscopic cholecystectomy. She complains of hot and cold chills, shivering, temperature at home of 100.0, nausea without vomiting, cough, shortness of breath, and splinting due to postoperative pain. She reports her urine has looked dark and has had a metallic smell to it. She has not been sexually active since the surgery. Pain overall is improving her general condition seems to be worse. Dr. San is her surgeon and Dr. Jay is her primary care provider. She is afebrile on presentation. Allergies and Home Medications Allergies Coded Allergies: No Known Drug Allergies (Unverified , 04/05/17) Home Medications Cephalexin 500 Mg Capsule, 500 MG PO QID Prescribed by: ZEB DOSS on 01/12/18 0126 Ondansetron HCl 4 Mg Tab, 4 MG PO Q6H PRN for NAUSEA/VOMITING, (Reported) Patient Home Medication List Home Medication List Reviewed: Yes Review of Systems Review of Systems Constitutional: see HPI EENTM: no symptoms reported Respiratory: see HPI Cardiovascular: no symptoms reported Gastrointestinal: see HPI Genitourinary: see HPI : No Musculoskeletal: muscle pain Skin: no symptoms reported Psychiatric/Neurological: No Symptoms Reported Hematologic/Lymphatic: No Symptoms Reported Immunological/Allergic: no symptoms reported Past Qruvhlo-Zzbgcg-Kdmueu Hx Patient Social History Alcohol Use: Denies Use Recreational Drug Use: No Smoking Status: Never a Smoker 2nd Hand Smoke Exposure: No Recent Foreign Travel: No Contact w/Someone Who Travel: No Recent Infectious Disease Expo: No Recent Hopitalizations: No Immunizations Up To Date Tetanus Booster (TDap): Unknown Date of Influenza Vaccine: May 14, 2017 Seasonal Allergies Seasonal Allergies: No Past Medical History Surgeries: Yes Section, Gallbladder Respiratory: No Cardiac: No Neurological: No : No Reproductive Disorders: No Sexually Transmitted Disease: No HIV/AIDS: No Genitourinary: No Gastrointestinal: Yes Gall Bladder Disease Musculoskeletal: Yes Chronic Back Pain Endocrine: No HEENT: No Cancer: No Psychosocial: Yes Depression Integumentary: No Blood Disorders: No Adverse Reaction/Blood Tranf: No Family Medical History Reviewed Nursing Family Hx Hypertension 19 FATHER (hx of skin cancer) Seizure disorder G8 SISTER No Pertinent Family Hx Physical Exam Vital Signs Vital Signs - First Documented 01/11/18 23:25 Temp 99.1 Pulse 101 Resp 16 B/P (MAP) 103/75 (84) Pulse Ox 94 O2 Delivery Room Air Capillary Refill : Less Than 3 Seconds Height, Weight, BMI Height: 5'10.00" Weight: 220lbs. 0.0oz. 99.392416qy; 32.0 BMI Method:Stated General Appearance: No Apparent Distress, WD/WN HEENT: PERRL/EOMI, Normal ENT Inspection, Pharynx Normal Neck: Normal Inspection Respiratory: Lungs Clear, Normal Breath Sounds, No Accessory Muscle Use, No Respiratory Distress Cardiovascular: Regular Rate, Rhythm, No Edema, No Murmur Gastrointestinal: Normal Bowel Sounds, Soft, Tenderness (appropriately tender for postoperative day number 4) Extremity: Normal Inspection, No Pedal Edema Neurologic/Psychiatric: Alert, Oriented x3, No Motor/Sensory Deficits, Normal Mood/Affect, barge master II-XII Norm as Tested Skin: Normal Color, Warm/Dry Progress/Results/Core Measures Suspected Sepsis Recent Fever Within 48 Hours: No Infection Criteria Present: Suspected New Infection New/Unexplained Altered Menta: No Sepsis Screen: No Definite Risk SIRS Temperature:99.1 Pulse: 101 Respiratory Rate: 16 Laboratory Tests 01/11/18 23:25: White Blood Count 8.2 Blood Pressure 103 /75 Mean: 84 Laboratory Tests 01/11/18 23:25: Creatinine 0.93, Platelet Count 280, Total Bilirubin 0.7 Results/Orders Lab Results Laboratory Tests Test 01/11/18 23:25 01/11/18 23:54 Range/Units White Blood Count 8.2 4.3-11.0 10^3/uL Red Blood Count 3.80 L 4.35-5.85 10^6/uL Hemoglobin 11.4 L 11.5-16.0 G/DL Hematocrit 34 L 35-52 % Mean Corpuscular Volume 90 80-99 FL Mean Corpuscular Hemoglobin 30 25-34 PG Mean Corpuscular Hemoglobin Concent 33 32-36 G/DL Red Cell Distribution Width 12.1 10.0-14.5 % Platelet Count 280 130-400 10^3/uL Mean Platelet Volume 9.7 7.4-10.4 FL Neutrophils (%) (Auto) 91 H 42-75 % Lymphocytes (%) (Auto) 7 L 12-44 % Monocytes (%) (Auto) 1 0-12 % Eosinophils (%) (Auto) 2 0-10 % Basophils (%) (Auto) 0 0-10 % Neutrophils # (Auto) 7.4 1.8-7.8 X 10^3 Lymphocytes # (Auto) 0.6 L 1.0-4.0 X 10^3 Monocytes # (Auto) 0.0 0.0-1.0 X 10^3 Eosinophils # (Auto) 0.2 0.0-0.3 10^3/uL Basophils # (Auto) 0.0 0.0-0.1 10^3/uL Neutrophils % (Manual) 89 % Lymphocytes % (Manual) 6 % Eosinophils % (Manual) 5 % Sodium Level 139 135-145 MMOL/L Potassium Level 3.3 L 3.6-5.0 MMOL/L Chloride Level 104 98-107 MMOL/L Carbon Dioxide Level 23 21-32 MMOL/L Anion Gap 12 5-14 MMOL/L Blood Urea Nitrogen 9 7-18 MG/DL Creatinine 0.93 0.60-1.30 MG/DL Estimat Glomerular Filtration Rate > 60 BUN/Creatinine Ratio 10 Glucose Level 159 H 70-105 MG/DL Calcium Level 9.1 8.5-10.1 MG/DL Corrected Calcium 9.1 8.5-10.1 MG/DL Total Bilirubin 0.7 0.1-1.0 MG/DL Aspartate Amino Transf (AST/SGOT) 34 5-34 U/L Alanine Aminotransferase (ALT/SGPT) 46 0-55 U/L Alkaline Phosphatase 85 40-136 U/L C-Reactive Protein High Sensitivity 1.67 H 0.00-0.50 MG/DL Total Protein 7.0 6.4-8.2 GM/DL Albumin 4.0 3.2-4.5 GM/DL Lipase 40 8-78 U/L Urine Color YELLOW Urine Clarity SLIGHTLY CLOUDY Urine pH 7 5-9 Urine Specific [place] 1.010 L 1.016-1.022 Urine Protein 1+ H NEGATIVE Urine Glucose (UA) NEGATIVE NEGATIVE Urine Ketones NEGATIVE NEGATIVE Urine Nitrite NEGATIVE NEGATIVE Urine Bilirubin NEGATIVE NEGATIVE Urine Urobilinogen 1 NORMAL MG/DL Urine Leukocyte Esterase 3+ H NEGATIVE Urine RBC (Auto) 5+ H NEGATIVE Urine RBC 50-100 H /HPF Urine WBC 50-100 H /HPF Urine Squamous Epithelial Cells 2-5 /HPF Urine Crystals NONE /LPF Urine Bacteria MODERATE H /HPF Urine Casts NONE /LPF Urine Mucus NEGATIVE /LPF Urine Culture Indicated YES Micro Results Microbiology 01/11/18 Influenza Types A,B Antigen ([place]) - Final, Complete My Orders Orders - ZEB MARIANO MD Cbc With Automated Diff (01/11/18 22:57) Comprehensive Metabolic Panel (01/11/18 22:57) Hs C Reactive Protein (01/11/18 22:57) Lipase (01/11/18 22:57) Ua Culture If Indicated (01/11/18 22:57) Saline Lock/Iv-Start (01/11/18 22:57) Influenza A And B Antigens (01/11/18 23:29) Saline Lock/Iv-Start (01/11/18 23:29) Ns Iv 1000 Ml (Sodium Chloride 0.9%) (01/11/18 23:29) Manual Differential (01/11/18 20:25) Chest Pa/Lat (2 View) (01/12/18 00:27) Urine Culture (01/11/18 23:54) Ceftriaxone For Iv Use (Rocephin For I (01/12/18 01:15) Potassium Chloride (Tablet) (Klor Con Ta (01/12/18 01:30) Medications Given in ED Current Medications Medications Dose Ordered Sig/Mp Route Start Time Stop Time Status Last Admin Dose Admin Ceftriaxone Sodium 1000 mg/ Sodium Chloride 50 ml @ 100 mls/hr ONCE ONCE IV 01/12/18 01:15 01/12/18 01:39 DC 01/12/18 01:21 100 MLS/HR Potassium Chloride 20 meq ONCE ONCE PO 01/12/18 01:30 01/12/18 01:31 DC 01/12/18 01:27 20 MEQ Sodium Chloride 1,000 ml @ 0 mls/hr Q0M ONCE IV 01/11/18 23:29 11 23:32 DC 01/11/18 23:35 0 MLS/HR Vital Signs/I&O 01/11/18 01/12/18 23:25 01:33 Temp 99.1 98.7 Pulse 101 90 Resp 16 21 B/P (MAP) 103/75 (84) 105/77 (86) Pulse Ox 94 97 O2 Delivery Room Air Room Air Capillary Refill : Less Than 3 Seconds Blood Pressure Mean: 84 Progress Note : Progress Note Patient was hydrated with a liter of IV fluid. She was found to have a urinary tract infection and was treated with Rocephin. Potassium was replaced orally. Departure Impression Primary Impression: Urinary tract infection Qualified Codes: N39.0 - Urinary tract infection, site not specified; R31.9 - Hematuria, unspecified Additional Impression: Hypokalemia Disposition: HOME, SELF-CARE Condition: Improved Departure-Patient Inst. Decision time for Depature: 01:15 Referrals: JHOAN JAY MD (PCP/Family) Primary Care Physician Patient Instructions: Urinary Tract Infection, Adult (DC) Add. Discharge Instructions: Drink plenty of clear liquids. Eat a well-balanced diet. Complete your antibiotics as prescribed. Follow-up with your primary care provider on Thursday or to review urine culture results. Return to care if symptoms worsen. All discharge instructions reviewed with patient and/or family. Voiced understanding. Scripts Cephalexin (Keflex) 500 Mg Capsule 500 MG PO QID, #20 CAP Prov: ZEB MARIANO MD 01/12/18 Copy Copies To 1: LYNN SAN MD Copies To 2: JHOAN JAY MD, JOSHUA T MD Jan 12, 2018 01:26
[2018-01-12] MEDS ORDERED: KCL 10 MEQ TAB (MICRO K) PO ONE (01:30)
[2018-01-12 01:33] VITALS: BP 105/77
--- NOTE | 2018-01-12 06:24 | Diagnostic Imaging Report ---
CHEST PA/LAT (2 VIEW) Indication: Bodyaches, fever and chills Comparison: None available. Findings: No focal pneumonic consolidation, pleural effusion or pneumothorax. Normal heart size and pulmonary vasculature. Impression: No acute cardiopulmonary process. Dictated by: Dictated on workstation # [id number]
== END 2018-01-12 01:35 | disposition home or self-care (01) ==
LOC: EDUNIT# 22:48 → ER 22:49
DX: N39.0 Urinary tract infection, site not specified (principal); E87.6 Hypokalemia; F32.9 Major depressive disorder, single episode, unspecified; Z90.49 Acquired absence of other specified parts of digestive tract; Z98.890 Other specified postprocedural states; Z87.448 Personal history of other diseases of urinary system; Z80.8 Family history of malignant neoplasm of other organs or systems
CPT/HCPCS: 36415; 71046; 80053; 81000; 83690; 85007; 85027; 86141; 87077; 87088; 87804; 93041

== ENCOUNTER → 2019-11-08 | Outpatient (CLI) | payer BC, OTHER ==
[~2019-11-08] MED LIST changes: +CEPH-507 PO; +NORE0.3518; +SERT100T8
--- NOTE | 2019-11-08 11:55 | Diagnostic Imaging Report ---
INDICATION: survey. TECHNIQUE: Multiple Real-time grayscale images were obtained over the gravid uterus. COMPARISON: None. FINDINGS: There is a single live fetus in a cephalic presentation. The heart rate was recorded at 150 BPM. The placenta is posterior. No previa is detected. The amniotic fluid index is 9.7 cm. The kidneys, bladder, and stomach are unremarkable. The brain is unremarkable. There is a four-chamber heart. There is a three-vessel cord with normal insertion. The spine is unremarkable. Biometrical measurements are as follows: Biparietal 5.36 cm, age 22 weeks 3 days. Head circumference 20.35 cm, age 22 weeks 4 days. Abdominal circumference 17.50 cm, age 22 weeks 3 days. Femur length 3.89 cm, age 22 weeks 4 days. Sonographic estimate age: 22 weeks 4 days. Sonographic estimated date of delivery: 03/09/2020. Estimated Weight: 505 gm (+/- 74 gm). LMP percentile: 52%. heart rate: 150 beats per minute. number: 1 of 1. IMPRESSION: Single live IUP of 22 weeks 4 days gestational age. The estimated date of confinement sonographically is 03/09/2020. Dictated by: Dictated on workstation # [id number]
== END ==
LOC: RAD 10:00
PROVIDERS: ATTEND Nurse Practitioner Women's Health
DX: Z34.92 Encounter for supervision of normal pregnancy, unspecified, second trimester (principal); Z3A.22 22 weeks gestation of pregnancy
CPT/HCPCS: 76805

== ENCOUNTER 2020-03-06 02:28 | Inpatient (IN) | payer BC ==
[~2020-03-06] VITALS: Ht 177.8 cm; Wt 119.6 kg
[2020-03-06] VITALS (61 sets, daily range): BP systolic 105–145; BP diastolic 56–85
[~2020-03-06 02:28] MED LIST changes: -NORE0.3518; +NORE0.3561; -PANT40TA3 PO; +PANT40TA52 PO
--- NOTE | 2020-03-06 05:20 | NUR ---
BROOK CRANE presented to unit via ambulation from ED, accompanied by s.o. for . BROOK CRANE weighed, gowned, voided, and to bed. EFHM and TOCO applied, VS taken. BROOK CRANE oriented to bed controls, call light, TV, heat, and A/C controls.
[2020-03-06] MEDS ORDERED: D5 LR IV SOLUTION 1,000 ML IV SCH (05:30)
[2020-03-06] MEDS ORDERED: MINERAL OIL CONCENTRATE 99.9% 15 ML UDC TOP PRN (05:30)
[2020-03-06] MEDS ORDERED: CATHETER FLUSH 10 ML SYR IV SCH ×2 (06:00→22:00)
[2020-03-06] MEDS ORDERED: GLYB2.5T4 PO (06:08)
[2020-03-06] MEDS ORDERED: PREN-142 PO (06:08)
[2020-03-06 06:32] LABS: BASOPHILS % (AUTO) 0 % (0-10); EOSINOPHILS # (AUTO) 0.1 10^3/uL (0.0-0.3); EOSINOPHILS % (AUTO) 1 % (0-10); HEMATOCRIT 37 % (35-52); HEMOGLOBIN 12.3 g/dL (11.5-16.0); LYMPHOCYTES # (AUTO) 1.4 10^3/uL (1.0-4.0); LYMPHOCYTES % (AUTO) 15 % (12-44); MEAN CORPUSCULAR HEMOGLOBIN 32 pg (25-34); MEAN CORPUSCULAR HGB CONC 33 g/dL (32-36); MEAN CORPUSCULAR VOLUME 96 fL (80-99); MEAN PLATELET VOLUME 10.9 fL (9.0-12.2); MONOCYTES # (AUTO) 0.7 10^3/uL (0.0-1.0); MONOCYTES % (AUTO) 7 % (0-12); NEUTROPHILS # (AUTO) 7.3 10^3/uL (1.8-7.8); NEUTROPHILS % (AUTO) 76 % (42-75); PLATELET COUNT 177 10^3/uL (130-400); WHITE BLOOD COUNT 9.7 10^3/uL (4.3-11.0)
[2020-03-06] MEDS ORDERED: NS IV 1000 ML 1,000 ML ONE (06:40)
[2020-03-06] MEDS ORDERED: LACTATED RINGERS 1,000 ML IV SCH ×2 (06:45→08:15)
[2020-03-06] MEDS: NS IV 1000 ML 1,000 ML IV SCH ×2 (06:50→14:52)
[2020-03-06] MEDS ORDERED: fentaNYL 2 mcg/ml BUPIVA 0.125 100 ML ONE (08:07)
[2020-03-06] MEDS ORDERED: OXYTOCIN PRE-MIX DRIP 500 ML IV ONE (08:07)
[2020-03-06] MEDS ORDERED: fentaNYL 2 mcg/ml BUPIVA 0.125 100 ML EPI PRN (08:15)
[2020-03-06] MEDS ORDERED: ONDANSETRON 4 MG/2 ML (SDV) Z0FRAN IV PRN (08:15)
[2020-03-06] MEDS ORDERED: METOCLOPRAMIDE INJ 10 MG/2 ML (REGLAN) IV PRN (08:15)
[2020-03-06] MEDS ORDERED: EPIDURAL (fentaNYL 2 MCG/ML BUPIVA 0.125%)100 ML BAG EPI SCH (08:15)
[2020-03-06] MEDS ORDERED: NALOXONE 0.4 MG/ML 1 ML (NARCAN) VIAL IV PRN ×2 (08:15)
[2020-03-06] MEDS ORDERED: diphenhydrAMINE 50 MG/ML INJ (BENADRYL) IV PRN (08:15)
[2020-03-06] MEDS: OXYTOCIN PRE-MIX DRIP 500 ML IV SCH ×2 (08:32→18:22)
--- NOTE | 2020-03-06 16:22 | History & Physical-OB ---
OB - Chief Complaint & HPI Date/Time Date of Admission: Date of Admission: Mar 06, 2020 at 5:10 am Date seen by a Provider: Mar 06, 2020 Time Seen by a Provider: 07:45 Chief Complaint/History OB-Reason for Admission/Chief: Induction of Labor Hx : 4 Hx Para: 3 Expected Date of Delivery: Mar 11, 2020 Gestational Age in Weeks: 39 Gestational Age in Days: 2 Admission Nurse Assessment Rev: Yes Allergies and Home Medications Allergies Coded Allergies: No Known Drug Allergies (Unverified , 04/05/17) Patient Home Medication List Home Medication List Reviewed: Yes OB - History Hx of Present Care: Yes Ultrasounds: Normal mid trimester US 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) Medical Complications: None Delivery History Hx Blood Disorders: No Adverse Rxn to Tranfusion: No Patient Past Medical History noncontributory Social History/Family History HIV/AIDS: No Recent Infectious Disease Expo: No Sexually Transmitted Disease: No Alcohol Use: Denies Use Recreational Drug Use: No 2nd Hand Smoke Exposure: No Immunizations Tetanus Booster (TDap): Unknown Date of Influenza Vaccine: Dec 05, 2019 OB - Admission Exam Physical Exam Vitals: Vital Signs 03/06/20 03/06/20 15:15 16:00 Temp 36.2 Pulse 75 Resp 20 B/P (MAP) 124/68 (86) Pulse Ox 98 O2 Delivery Room Air HEENT: NCAT Heart: Rhythm Normal Lungs: Clear Abdomen: Gravid Extremities: Normal Reflexes: Normal Cervical Dilatation: 3cm Effacement: 75% Station: -1 Membranes: Intact Heart Rate: 130's Accelerations: Accelerations Present Decelerations: No Decelerations Short Term Variability: Present Retirement Variability: Average (6-25) Contractions on Admission: 6-10 Minutes Apart Intensity: Mild Savage Scoring Tool (Modified) Dilation (cm): 3-4cm (2) Effacement (%): 51-79% (2) Descent/Station: -1,0 (2) Cervix Consistency: Soft (2) Cervix Position: Anterior (2) Add 1 point for: Each previous vaginal delivery (1) Savage Score: 12 Labs Laboratory Tests Test 03/06/20 06:05 03/06/20 06:10 Range/Units Coronavirus (COVID-19)(PCR) Negative Negative White Blood Count 9.7 4.3-11.0 10^3/uL Red Blood Count 3.85 3.80-5.11 10^6/uL Hemoglobin 12.3 11.5-16.0 g/dL Hematocrit 37 35-52 % Mean Corpuscular Volume 96 80-99 fL Mean Corpuscular Hemoglobin 32 25-34 pg Mean Corpuscular Hemoglobin Concent 33 32-36 g/dL Red Cell Distribution Width 13.2 10.0-14.5 % Platelet Count 177 130-400 10^3/uL Mean Platelet Volume 10.9 9.0-12.2 fL Immature Granulocyte % (Auto) 1 % Neutrophils (%) (Auto) 76 H 42-75 % Lymphocytes (%) (Auto) 15 12-44 % Monocytes (%) (Auto) 7 0-12 % Eosinophils (%) (Auto) 1 0-10 % Basophils (%) (Auto) 0 0-10 % Neutrophils # (Auto) 7.3 1.8-7.8 10^3/uL Lymphocytes # (Auto) 1.4 1.0-4.0 10^3/uL Monocytes # (Auto) 0.7 0.0-1.0 10^3/uL Eosinophils # (Auto) 0.1 0.0-0.3 10^3/uL Basophils # (Auto) 0.0 0.0-0.1 10^3/uL Immature Granulocyte # (Auto) 0.1 0.0-0.1 10^3/uL Glucose Level 95 70-105 MG/DL OB - Assessment/Plan/Diagnosis Assessment Assessment: induction of labor Admission Dx 30 yo @ 39.2 weeks TOLAC Hx of successful x 1 GBS neg GDMA2- controlled with glyburide Admission Status: Inpatient Order (span 2 midnights) Reason for Inpatient Admission: Induction of labor Plan Plan: Induction Induction Method: per Pitocin Protocol SEKOU JEAN DO Mar 06, 2020 4:22 pm
--- NOTE | 2020-03-06 18:11 | OB Labor & Delivery Record ---
L&D History Date of Service Date of Service: Mar 06, 2020 History Expected Date of Delivery: Mar 11, 2020 Gestational Age in Weeks: 39 Hx : 4 Hx Para: 3 Complications Events: Routine care Operative Indications (Cesarea: N/A-Vaginal Delivery Intrapartal Events: None L&D Stage1 Stage One Onset of Labor - Date: Mar 06, 2020 Monitors and Tracing Monitor Mode: External Heart Rate: 135 Monitor Accelerations: Uniform Monitor Decelerations: Variable Station: 0 Group Home Variability: Average (6-10) Short Term Variability: Present Presentation: Vertex Vital Signs VS - Last 72 Hours, by Label 03/06/20 03/06/20 03/06/20 03/06/20 07:25 07:55 08:25 08:30 Temp 36.2 Pulse 85 76 84 78 Resp 20 20 20 20 B/P (MAP) 111/76 (88) 120/67 (84) 136/71 (92) 117/72 (87) Pulse Ox 97 97 98 98 O2 Delivery Room Air Room Air Room Air Room Air 03/06/20 03/06/20 03/06/20 03/06/20 08:35 08:40 08:45 08:50 Pulse 96 84 81 80 Resp 20 20 20 20 B/P (MAP) 118/74 (89) 123/78 (93) 127/73 (91) 125/67 (86) Pulse Ox 98 98 98 96 O2 Delivery Room Air Room Air Room Air Room Air 03/06/20 03/06/20 03/06/20 03/06/20 08:55 09:00 09:05 09:15 Pulse 75 78 76 82 Resp 20 20 20 20 B/P (MAP) 122/65 (84) 122/60 (80) 117/56 (76) 121/69 (86) Pulse Ox 97 97 97 94 O2 Delivery Room Air Room Air Room Air Room Air 03/06/20 03/06/20 03/06/20 03/06/20 09:25 09:30 09:40 10:00 Temp 36.4 Pulse 78 88 82 76 Resp 20 20 20 20 B/P (MAP) 121/69 (86) 123/60 (81) 123/71 (88) 118/69 (85) Pulse Ox 94 97 96 96 O2 Delivery Room Air Room Air Room Air Room Air 03/06/20 03/06/20 03/06/20 03/06/20 10:15 10:30 10:45 11:00 Pulse 80 78 76 75 Resp 20 20 20 20 B/P (MAP) 119/65 (83) 131/70 (90) 127/68 (87) 125/75 (92) Pulse Ox 97 98 95 97 O2 Delivery Room Air Room Air Room Air Room Air 03/06/20 03/06/20 03/06/20 03/06/20 11:15 11:30 11:45 12:00 Pulse 79 76 83 65 Resp 20 20 20 20 B/P (MAP) 125/70 (88) 128/60 (82) 111/67 (82) 117/68 (84) Pulse Ox 97 98 97 97 O2 Delivery Room Air Room Air Room Air Room Air 03/06/20 03/06/20 03/06/20 03/06/20 12:15 12:30 12:45 13:00 Pulse 64 67 74 88 Resp 20 20 20 20 B/P (MAP) 119/66 (83) 120/64 (82) 121/68 (85) 112/69 (83) Pulse Ox 97 96 97 98 O2 Delivery Room Air Room Air Room Air Room Air 03/06/20 03/06/20 03/06/20 03/06/20 13:15 13:30 13:45 14:00 Pulse 82 86 77 69 Resp 20 20 20 20 B/P (MAP) 111/64 (80) 126/79 (95) 119/68 (85) 122/61 (81) Pulse Ox 98 98 97 96 O2 Delivery Room Air Room Air Room Air Room Air 03/06/20 03/06/20 03/06/20 03/06/20 14:15 14:40 14:45 15:00 Temp 36.4 Pulse 74 68 72 70 Resp 20 20 20 20 B/P (MAP) 123/78 (93) 122/81 (95) 121/67 (85) 118/72 (87) Pulse Ox 98 97 97 98 O2 Delivery Room Air Room Air Room Air Room Air 03/06/20 03/06/20 03/06/20 03/06/20 15:15 15:30 15:45 16:00 Temp 36.2 Pulse 83 83 101 75 Resp 20 20 20 20 B/P (MAP) 123/74 (90) 131/84 (100) 135/78 (97) 124/68 (86) Pulse Ox 98 97 99 98 O2 Delivery Room Air Room Air Room Air Room Air Rupture of Membranes Spontaneous Ruture of Membrane: No Amniotic Membrane Rupture Time: 0806 Amniotic Membrane Fluid Desc.: Clear Vaginal Bleeding Description: Normal Show Progress/Notes Patient admitted and epidural placed accordance with protocol. AROM and pitocin augmentation started she progressed to complete and + 2 station when she began having repetitive variable decelerations. L&D Stage2 Stage Two Stage II Date: Mar 06, 2020 Monitors and Tracing Monitor Mode: External Heart Rate: 135 Monitor Accelerations: Uniform Monitor Decelerations: Variable Valver Variability: Average (6-10) Short Term Variability: Present Position: Right Occiput Anterior Presentation: Vertex Cord Descript/Complications Cord Vessel Description: 3 Vessels Complications nuchal cord x 1 reduced Delivery Type Delivery Method: Spontaneous Vaginal Anterior Shoulder: Left Episiotomy/Perineal Laceration Laceraction(s)/Extensions: No Condition of Delivery Notes Live female , weight and apgars pending. Condition of Infant Condition of : Living Exam: No Observed Abnormalities Resuscitation Resuscitation: Bag and Mask L&D Stage3 Stage Three Stage III Date: Mar 06, 2020 Pictocin Pitocin Administration mu/min: 16 Pitocin ml/hr: 16 Pitocin Administration Comment: 30 mu wide open at delivery of placeta Placenta Delivery Placenta Delivery: Spontaneous Delivery Summary Summary Estimated blood loss (mL): 300 Attending at delivery: Sekou Jean DO Condition of Delivery Examined: Cervix Examined, Uterus Explored Post Hemorrhage: No Condition of Mother stable Condition of (s) stable SEKOU JEAN DO Mar 06, 2020 18:11
[2020-03-06] MEDS ORDERED: DIBUCAINE (NUPERCAINAL) 1% OINT 30 GM TOP PRN (18:15)
[2020-03-06] MEDS ORDERED: WITCH HAZEL(TUCKS) 40 EA JAR TOP PRN (18:15)
[2020-03-06] MEDS ORDERED: TETANUS,DIPTH,PERTUSS P/F (BOOSTRIX) 0.5 ML VIAL IM ONE (18:15)
[2020-03-06] MEDS ORDERED: MEASLES,MUMPS,RUBELLA 1 EA INJ SQ ONE (18:15)
[2020-03-06] MEDS ORDERED: OXYTOCIN PRE-MIX DRIP 500 ML IV SCH (18:15)
[2020-03-06] MEDS ORDERED: HYDROcodone/APAP 5 MG/325 MG (LORTAB) TAB PO PRN (18:15)
[2020-03-06] MEDS ORDERED: BENZOCAINE/MENTHOL (DERMOPLAST) 60 ML CAN TP PRN (18:15)
[2020-03-06] MEDS: IBUPROFEN 600 MG (MOTRIN) TAB PO SCH (18:22)
[2020-03-07 03:19] VITALS: BP 114/64
[2020-03-07] MEDS: DOCUSATE SODIUM 100 MG (COLACE) CAP PO SCH ×3 (03:19→21:04)
[2020-03-07] MEDS: IBUPROFEN 600 MG (MOTRIN) TAB PO SCH ×4 (03:19→21:04)
[2020-03-07 06:31] LABS: BASOPHILS % (AUTO) 0 % (0-10); EOSINOPHILS % (AUTO) 0 % (0-10); HEMATOCRIT 35 % (35-52); HEMOGLOBIN 11.5 g/dL (11.5-16.0); LYMPHOCYTES # (AUTO) 0.8 10^3/uL (1.0-4.0); LYMPHOCYTES % (AUTO) 6 % (12-44); MEAN CORPUSCULAR HEMOGLOBIN 32 pg (25-34); MEAN CORPUSCULAR HGB CONC 33 g/dL (32-36); MEAN CORPUSCULAR VOLUME 98 fL (80-99); MONOCYTES # (AUTO) 0.6 10^3/uL (0.0-1.0); MONOCYTES % (AUTO) 5 % (0-12); NEUTROPHILS # (AUTO) 10.9 10^3/uL (1.8-7.8); NEUTROPHILS % (AUTO) 88 % (42-75); PLATELET COUNT 162 10^3/uL (130-400); WHITE BLOOD COUNT 12.4 10^3/uL (4.3-11.0)
--- NOTE | 2020-03-07 07:47 | Postpartum Progress Note ---
Note Note Day # 1 Subjective: Patient is without complaints. Ambulating, voiding. Tolerating a regular diet without nausea or vomiting. Normal lochia. Pain is well controlled with oral pain medications. Objective: Physical Exam: General - Alert and oriented, no apparent distress Abdomen - Soft, appropriately tender to palpation, non-distended, fundus firm at umbilicus Extremities - no edema, negative Halle's bilaterally Assessment: PPD 1 NVD GDMA2 Plan: Routine care. Encourage breast feeding. Encourage ambulation. Ferrous sulfate supplementation. Plan for discharge tomorrow Vitals - Labs Vital Signs - I&O Vital Signs Date Time Temp Pulse Resp B/P (MAP) Pulse Ox O2 Delivery O2 Flow Rate FiO2 03/07/20 03:19 36.7 87 20 114/64 (81) 98 Room Air 03/06/20 23:30 36.4 82 20 110/68 (82) 98 Room Air 03/06/20 21:15 36.5 90 20 113/64 (80) Room Air 03/06/20 21:00 93 20 115/63 (80) Room Air 03/06/20 20:45 85 20 118/64 (82) Room Air 03/06/20 20:30 36.5 81 20 113/63 (80) Room Air 03/06/20 20:15 82 20 111/57 (75) Room Air 03/06/20 20:00 36.4 86 20 108/62 (77) Room Air 03/06/20 19:45 85 20 107/58 (74) Room Air 03/06/20 19:30 90 20 105/64 (78) Room Air 03/06/20 19:15 36.4 92 20 123/79 (94) Room Air 03/06/20 18:27 36.4 81 20 107/59 (75) Room Air 03/06/20 18:15 36.2 90 20 116/68 (84) Room Air 03/06/20 18:00 36.3 97 20 128/66 (86) Room Air 03/06/20 17:45 90 20 145/85 (105) Room Air 03/06/20 17:30 85 20 135/80 (98) Room Air 03/06/20 17:15 78 20 125/75 (92) 98 Room Air 03/06/20 17:00 82 20 123/79 (94) 97 Room Air 03/06/20 16:45 36.4 77 20 119/75 (90) 97 Room Air 03/06/20 16:30 74 20 120/70 (87) 97 Room Air 03/06/20 16:15 79 20 120/76 (91) 97 Room Air 03/06/20 16:00 75 20 124/68 (86) 98 Room Air 03/06/20 15:45 101 20 135/78 (97) 99 Room Air 03/06/20 15:30 83 20 131/84 (100) 97 Room Air 03/06/20 15:15 36.2 83 20 123/74 (90) 98 Room Air 03/06/20 15:00 70 20 118/72 (87) 98 Room Air 03/06/20 14:45 72 20 121/67 (85) 97 Room Air 03/06/20 14:40 68 20 122/81 (95) 97 Room Air 03/06/20 14:15 36.4 74 20 123/78 (93) 98 Room Air 03/06/20 14:00 69 20 122/61 (81) 96 Room Air 03/06/20 13:45 77 20 119/68 (85) 97 Room Air 03/06/20 13:30 86 20 126/79 (95) 98 Room Air 03/06/20 13:15 82 20 111/64 (80) 98 Room Air 03/06/20 13:00 88 20 112/69 (83) 98 Room Air 03/06/20 12:45 74 20 121/68 (85) 97 Room Air 03/06/20 12:30 67 20 120/64 (82) 96 Room Air 03/06/20 12:15 64 20 119/66 (83) 97 Room Air 03/06/20 12:00 65 20 117/68 (84) 97 Room Air 03/06/20 11:45 83 20 111/67 (82) 97 Room Air 03/06/20 11:30 76 20 128/60 (82) 98 Room Air 03/06/20 11:15 79 20 125/70 (88) 97 Room Air 03/06/20 11:00 75 20 125/75 (92) 97 Room Air 03/06/20 10:45 76 20 127/68 (87) 95 Room Air 03/06/20 10:30 78 20 131/70 (90) 98 Room Air 03/06/20 10:15 80 20 119/65 (83) 97 Room Air 03/06/20 10:00 76 20 118/69 (85) 96 Room Air 03/06/20 09:40 82 20 123/71 (88) 96 Room Air 03/06/20 09:30 36.4 88 20 123/60 (81) 97 Room Air 03/06/20 09:25 78 20 121/69 (86) 94 Room Air 03/06/20 09:15 82 20 121/69 (86) 94 Room Air 03/06/20 09:05 76 20 117/56 (76) 97 Room Air 03/06/20 09:00 78 20 122/60 (80) 97 Room Air 03/06/20 08:55 75 20 122/65 (84) 97 Room Air 03/06/20 08:50 80 20 125/67 (86) 96 Room Air 03/06/20 08:45 81 20 127/73 (91) 98 Room Air 03/06/20 08:40 84 20 123/78 (93) 98 Room Air 03/06/20 08:35 96 20 118/74 (89) 98 Room Air 03/06/20 08:30 78 20 117/72 (87) 98 Room Air 03/06/20 08:25 84 20 136/71 (92) 98 Room Air 03/06/20 07:55 76 20 120/67 (84) 97 Room Air I & O 03/07/20 07:00 Intake Total 3375 ml Balance 3375 ml Labs Laboratory Tests 03/07/20 05:35: White Blood Count 12.4H, Red Blood Count 3.57L, Hemoglobin 11.5, Hematocrit 35, Mean Corpuscular Volume 98, Mean Corpuscular Hemoglobin 32, Mean Corpuscular Hemoglobin Concent 33, Red Cell Distribution Width 13.2, Platelet Count 162, Mean Platelet Volume 11.0, Immature Granulocyte % (Auto) 1, Neutrophils (%) (Auto) 88H, Lymphocytes (%) (Auto) 6L, Monocytes (%) (Auto) 5, Eosinophils (%) (Auto) 0, Basophils (%) (Auto) 0, Neutrophils # (Auto) 10.9H, Lymphocytes # (Auto) 0.8L, Monocytes # (Auto) 0.6, Eosinophils # (Auto) 0.0, Basophils # (Auto) 0.0, Immature Granulocyte # (Auto) 0.1 SEKOU JEAN DO Mar 07, 2020 07:47
[2020-03-07] MEDS ORDERED: ACHD5005 PO (07:49)
[2020-03-07] MEDS ORDERED: IBUP-844 PO (07:49)
[2020-03-07] MEDS ORDERED: DCS100C PO (07:49)
--- NOTE | 2020-03-07 07:50 | Discharge Inst-Women's Service ---
Discharge Inst-Women's Serv Depart Medication/Instructions New, Converted or Re-Newed RX: RX on Chart Final Diagnosis PPD 2 NVD Problems Reviewed?: Yes Consults/Follow Up Additional Follow Up: Yes Orders/Referrals Dr. Jean in 6 weeks Activity Activity: Activity as Tolerated Driving Instructions: No Driving for 1 Week NO SMOKING: NO SMOKING Nothing Inside Vagina: No Douching, No Luis Lopez, No Tampons Diet Discharge Diet: No Restrictions Symptoms to Report to : Bleeding Excessive, Pain Increased, Fever Over 101 Degrees F, Vaginal Bleeding Increase, Questions/Concerns For Any Problems or Questions: Contact Your Physician SEKOU JEAN DO Mar 07, 2020 07:50
[2020-03-07 08:15] VITALS: BP 116/69
--- NOTE | 2020-03-07 08:17 | Anesthesia-Regional Post-Op ---
Regional Patient Condition Mental Status: Alert, Oriented x3 Circulation: Same as Pre-Op Headache: Absent Sensation: Full Recovery Motor Block: Absent Post Op Complications Complications None Follow Up Care/Instructions Patient Instructions None needed. Anesthesia/Patient Condition Patient is doing well, no complaints, stable vital signs, no apparent adverse anesthesia problems. No complications reported per nursing. FRANCISCO YEBOAH CRNA Mar 07, 2020 08:17
[2020-03-07] MEDS: FERROUS SULF 325 MG (IRON) TAB PO SCH (08:22)
[2020-03-07] MEDS: PRENATAL VITAMIN 1 EA TAB PO SCH (08:22)
[2020-03-07 15:40] VITALS: BP 112/69
[2020-03-07 16:14] LABS: BILIRUBIN,URINE NEGATIVE (NEGATIVE); CLARITY,URINE CLEAR; COLOR,URINE YELLOW; GLUCOSE, URINE (UA) NEGATIVE (NEGATIVE); KETONES,URINE NEGATIVE (NEGATIVE); LEUKOCYTE ESTERASE ,URINE NEGATIVE (NEGATIVE); NITRITE,URINE NEGATIVE (NEGATIVE); PH,URINE 7.5 (5-9); PROTEIN,URINE NEGATIVE (NEGATIVE)
--- NOTE | 2020-03-07 16:15 | NUR ---
xray to bedside for ordered chest xray.
--- NOTE | 2020-03-07 16:24 | NUR ---
lab to bedside.
--- NOTE | 2020-03-07 16:38 | Diagnostic Imaging Report ---
EXAMINATION: Chest radiograph, portable AP view. DATE: 03/07/2020 4:27 PM INDICATION: 30-year-old female, fever and chills. COMPARISON: January 12, 2018. FINDINGS: Heart size and mediastinal contours are unremarkable. There is no identified pneumothorax. There is no large pleural effusion. There is no identified focal airspace consolidation. IMPRESSION: No identified acute cardiopulmonary abnormality. Dictated by: Dictated on workstation # [id number]
[2020-03-07 16:40] LABS: BACTERIA,URINE NEGATIVE /HPF; WBC,URINE RARE /HPF
[2020-03-07 16:46] LABS: BASOPHILS % (AUTO) 0 % (0-10); EOSINOPHILS % (AUTO) 0 % (0-10); HEMATOCRIT 36 % (35-52); HEMOGLOBIN 12.2 g/dL (11.5-16.0); LYMPHOCYTES # (AUTO) 0.4 10^3/uL (1.0-4.0); LYMPHOCYTES % (AUTO) 4 % (12-44); MEAN CORPUSCULAR HEMOGLOBIN 32 pg (25-34); MEAN CORPUSCULAR HGB CONC 34 g/dL (32-36); MEAN CORPUSCULAR VOLUME 96 fL (80-99); MEAN PLATELET VOLUME 10.8 fL (9.0-12.2); MONOCYTES # (AUTO) 0.4 10^3/uL (0.0-1.0); MONOCYTES % (AUTO) 4 % (0-12); NEUTROPHILS # (AUTO) 8.2 10^3/uL (1.8-7.8); NEUTROPHILS % (AUTO) 91 % (42-75); PLATELET COUNT 152 10^3/uL (130-400); WHITE BLOOD COUNT 9.1 10^3/uL (4.3-11.0)
[2020-03-07 17:17] LABS: BAND NEUTROPHILS 1 %; LYMPHOCYTES % (MANUAL) 4 %; MONOCYTES % (MANUAL) 5 %; NEUTROPHILS % (MANUAL) 90 %; RBC MORPH NORMAL
[2020-03-07] MEDS ORDERED: ACETAMINOPHEN 500 MG TAB (TYLENOL) ONE (17:20)
[2020-03-07] MEDS ORDERED: NS IV 500 ML 500 ML ONE (17:22)
[2020-03-07] MEDS ORDERED: cefTRIAXone FOR IV USE 1,000 MG in WATER (STERILE) FOR INJECTION 10 ML IV SCH (17:30)
[2020-03-07] MEDS ORDERED: NS IV 500 ML 500 ML IV SCH (17:45)
[2020-03-07] MEDS ORDERED: ACETAMINOPHEN 500 MG TAB (TYLENOL) PO ONE (18:00)
[2020-03-07 20:09] VITALS: BP 106/67
[2020-03-07] MEDS ORDERED: metroNIDAZOLE 500MG/100ML IVPB 100 ML IV SCH (21:00)
--- NOTE | 2020-03-07 22:00 | NUR ---
Pt. up to shower. IV saline locked and covered at this time. Pt. states that she is feeling much better than earlier in the day. States that she no longer feels feverish and denies any other symptoms.
[2020-03-08 00:20] VITALS: BP 104/58
[2020-03-08] MEDS: IBUPROFEN 600 MG (MOTRIN) TAB PO SCH ×2 (03:18→09:39)
[2020-03-08 04:17] VITALS: BP 116/66
--- NOTE | 2020-03-08 06:15 | NUR ---
Pt. sleeping soundly in bed. Breaths are even and unlabored. No s/s of distress. Pt. not woken at this time.
--- NOTE | 2020-03-08 07:35 | NUR ---
PT SITTING UP AT THE SIDE OF THE BED. BREAKFAST BEING DELIVERED. BLOOD SUGAR OBTAINED VIA FINGER STICK. RESULT: 110 MG/DL. PT DENIES ANY NEEDS OR QUESTIONS AT THIS TIME. S/O AT THE BEDSIDE.
--- NOTE | 2020-03-08 07:42 | Postpartum Progress Note ---
Note Note Day # 2 Subjective: Patient is without complaints. Ambulating, voiding. Tolerating a regular diet without nausea or vomiting. Normal lochia. Pain is well controlled with oral pain medications. She had a transient fever yesterday, was started on Rocephin and Flagyl and that has resolved. COVID19 testing neg x 2 Objective: Physical Exam: General - Alert and oriented, no apparent distress Abdomen - Soft, appropriately tender to palpation, non-distended, fundus firm at umbilicus Extremities - no edema, negative Halle's bilaterally Assessment: PPD 2 NVD Successful Fevers- resolved GDMA 2 Plan: Routine care. Encourage breast feeding. Encourage ambulation. Ferrous sulfate supplementation. Plan for discharge today Vitals - Labs Vital Signs - I&O Vital Signs Date Time Temp Pulse Resp B/P (MAP) Pulse Ox O2 Delivery O2 Flow Rate FiO2 03/08/20 04:17 36.2 68 18 116/66 (83) 98 Room Air 03/08/20 00:20 36.4 75 18 104/58 (73) 97 Room Air 03/07/20 20:09 36.2 95 18 106/67 (80) 95 Room Air 03/07/20 17:41 39.2 03/07/20 17:10 39.2 107 22 95 Room Air 03/07/20 15:40 39.1 119 20 112/69 (83) Room Air 03/07/20 08:15 36.5 82 20 116/69 (85) Room Air Labs Laboratory Tests 03/07/20 16:05: Urine Color YELLOW, Urine Clarity CLEAR, Urine pH 7.5, Urine Specific [place] 1.020, Urine Protein NEGATIVE, Urine Glucose (UA) NEGATIVE, Urine Ketones NEGATIVE, Urine Nitrite NEGATIVE, Urine Bilirubin NEGATIVE, Urine Urobilinogen 2.0, Urine Leukocyte Esterase NEGATIVE, Urine RBC (Auto) 1+H, Urine RBC 5-10H, Urine WBC RARE, Urine Crystals NONE, Urine Bacteria NEGATIVE, Urine Casts NONE, Urine Mucus SMALLH, Urine Culture Indicated NO 03/07/20 16:30: White Blood Count 9.1, Red Blood Count 3.80, Hemoglobin 12.2, Hematocrit 36, Mean Corpuscular Volume 96, Mean Corpuscular Hemoglobin 32, Mean Corpuscular Hemoglobin Concent 34, Red Cell Distribution Width 13.4, Platelet Count 152, Mean Platelet Volume 10.8, Immature Granulocyte % (Auto) 1, Neutrophils (%) (Auto) 91H, Lymphocytes (%) (Auto) 4L, Monocytes (%) (Auto) 4, Eosinophils (%) (Auto) 0, Basophils (%) (Auto) 0, Neutrophils # (Auto) 8.2H, Lymphocytes # (Auto) 0.4L, Monocytes # (Auto) 0.4, Eosinophils # (Auto) 0.0, Basophils # (Auto) 0.0, Immature Granulocyte # (Auto) 0.1, Neutrophils % (Manual) 90, Lymphocytes % (Manual) 4, Monocytes % (Manual) 5, Band Neutrophils 1, Blood Morphology Comment NORMAL, Glucose Level 116H 03/07/20 19:47: Coronavirus 2019 (ALEXANDREA) Negative 03/07/20 21:53: Glucometer 134H 03/08/20 07:34: Glucometer 110 SEKOU JEAN DO Mar 08, 2020 07:42
[2020-03-08] MEDS: PRENATAL VITAMIN 1 EA TAB PO SCH (09:39)
[2020-03-08] MEDS: DOCUSATE SODIUM 100 MG (COLACE) CAP PO SCH (09:39)
[2020-03-08] MEDS: FERROUS SULF 325 MG (IRON) TAB PO SCH (09:39)
[2020-03-08 09:41] VITALS: BP 102/71
--- NOTE | 2020-03-08 09:45 | NUR ---
MEDS GIVEN; SEE EMAR FOR FURTHER. VS OBTAINED. INITIAL SHIFT ASSESSMENT COMPLETED; SEE INTERVENTION FOR FURTHER. PT IS DRESSED AND READY TO BE DISCHARGED.
--- NOTE | 2020-03-08 09:55 | NUR ---
BLOOD SUGAR OBTAINED VIA FINGER STICK. RESULT: 118 MG/DL. IV DC'D. CATHETER TIP INTACT. GAUZE AND BAND AID APPLIED OVER SITE. DISCHARGE PAPERS PROVIDED AND REVIEWED WITH PT, PT VERBALIZES UNDERSTANDING AND DENIES ANY QUESTIONS AT THIS TIME. PAPER SIGNED. FOLLOW UP APPOINTMENT CARD AND PRESCRIPTIONS ALL PROVIDED AND PLACED INTO DISCHARGE FOLDER.
--- NOTE | 2020-03-08 11:00 | NUR ---
PT DISCHARGED FROM -309 TO [facility] VIA AMBULATORY IN STABLE CONDITION ACC BY S/O, NIDIA AND Mckayla PRADHAN RN.
== END 2020-03-08 11:00 | disposition home or self-care (01) | DRG 806 ==
LOC: LDRP 05:10
PROVIDERS: ADMIT Obstetrics & Gynecology; ATTEND Obstetrics & Gynecology
PROC: 10E0XZZ Delivery of Products of Conception, External Approach (ICD-10-PCS; principal; 2020-03-06)
PROC: 10907ZC Drainage of Amniotic Fluid, Therapeutic from Products of Conception, Via Natural or Artificial Opening (ICD-10-PCS; 2020-03-06)
DX: O34.211 Maternal care for low transverse scar from previous cesarean delivery (principal); O86.4 Pyrexia of unknown origin following delivery; Z37.0 Single live birth; Z3A.39 39 weeks gestation of pregnancy; O24.425 Gestational diabetes mellitus in childbirth, controlled by oral hypoglycemic drugs; O69.81X0 Labor and delivery complicated by cord around neck, without compression, not applicable or unspecified; Z20.822 Contact with and (suspected) exposure to COVID-19
CPT/HCPCS: 36415; 71045; 81000; 82947; 82962; 85007; 85025; 85027; 86850; 86900; 86901; 87040; 87635; 88307

== ENCOUNTER → 2021-12-09 | Outpatient (CLI) | payer BC ==
[~2021-12-09] MED LIST changes: +DOCU-239 PO; +GLBR2.5T PO; +IBUP-844 PO; +PREN-142 PO; +SERT-414; -SERT100T8
--- NOTE | 2021-12-09 21:01 | Diagnostic Imaging Report ---
INDICATION: Cough. FINDINGS: PA and lateral chest is clear. The lungs are normal. No failure, effusion or pneumothorax. IMPRESSION: Normal 2 view chest. Dictated by: Dictated on workstation # [id number]
== END ==
LOC: RAD 14:58
PROVIDERS: ATTEND Nurse Practitioner Family
DX: R05.9 Cough, unspecified (principal)
CPT/HCPCS: 71046

== ENCOUNTER 2021-12-22 10:49 | Emergency (ER) | payer BC ==
[~2021-12-22] VITALS: Ht 175.2 cm; Wt 118.0 kg
--- NOTE | 2021-12-22 11:34 | ED Chest Pain ---
General Chief Complaint: Chest Wall Stated Complaint: ABDOMINAL PAIN Nursing Triage Note: pt to ed with c/o left lower chest wall pain. states she coughed really hard about 0930 and felt a pop and has had severe pain since. states she has had cough/congestion for 2-3 months, has had multiple negative covid tests, antibiotics and steroids. Source: patient, family Exam Limitations: no limitations History of Present Illness Date Seen by Provider: Dec 22, 2021 Time Seen by Provider: 11:25 Initial Comments Patient is a 31 yo F who presents to the ED with left sided lower chest wall pain and left upper abdominal pain that began this AM during a coughing fit. She states she has had a cough and some mild nasal congestion for 2-3 months. States the pain is worse with coughing, deep inspiration, certain movements, and pa lpation of the affected areas. Denies any shortness of breath. No diaphoresis or lower extremity edema. Has not taken anything for the pain today. She is currently on steroids and antibiotics as prescribed by another provider for the URI symptoms. Allergies and Home Medications Allergies Coded Allergies: No Known Drug Allergies (Unverified , 04/05/17) Patient Home Medication List Home Medication List Reviewed: Yes Docusate Sodium (Dok) 100 Mg Capsule, 100 MG PO BID PRN for CONSTIPATION-1ST LINE Prescribed by: SEKOU JEAN on 03/07/20 0749 Glyburide (Glyburide) 2.5 Mg Tablet, 2.5 MG PO, (Reported) Entered as Reported by: KATHYA FRIED on 03/06/20 0608 Hydrocodone/Acetaminophen (Hydrocodone-Acetamin 5-325 mg) 1 Each Tablet, 1 TAB PO Q4H PRN for PAIN-MODERATE (5-7) Prescribed by: SEKOU JEAN on 03/07/20 0749 Ibuprofen (Ibu) 600 Mg Tablet, 600 MG PO Q6H Prescribed by: SEKOU JEAN on 03/07/20 0749 Vit No.124/Iron/FA ( Vitamin Tablet) 1 Each Tablet, 1 EACH PO, (Reported) Entered as Reported by: KATHYA FRIED on 03/06/20 0608 Sertraline HCl (Sertraline HCl) 100 Mg Tablet, (Reported) Entered as Reported by: MEHRAN SORIA on 01/11/18 6797 Review of Systems Review of Systems Constitutional: no symptoms reported EENTM: Nose Congestion Respiratory: Cough Cardiovascular: Chest Pain Gastrointestinal: Abdominal Pain Genitourinary: No Symptoms Reported Past Vmijanj-Gutbbf-[id number] Hx Patient Social History Tobacco Use?: No Substance use?: No Alcohol Use?: No Immunizations Up To Date Tetanus Booster (TDap): Unknown Influenza Vaccine Up-to-Date: No; Not Current Seasonal Allergies Seasonal Allergies: No Past Medical History Surgeries: Yes Section, Gallbladder Respiratory: No Cardiac: No Neurological: No Reproductive Disorders: No Sexually Transmitted Disease: No HIV/AIDS: No Genitourinary: No Gastrointestinal: Yes (Gall bladder removed) Gall Bladder Disease Musculoskeletal: No Chronic Back Pain Endocrine: No HEENT: No Cancer: No Psychosocial: Yes Anxiety, Depression Integumentary: No Blood Disorders: No Adverse Reaction/Blood Tranf: No Family Medical History FH: skin cancer Hypertension 19 FATHER (hx of skin cancer) Seizure disorder G8 SISTER No Pertinent Family Hx Physical Exam Vital Signs Vital Signs - First Documented 12/22/21 11:14 Temp 36.4 Pulse 78 Resp 18 B/P (MAP) 137/88 (104) Pulse Ox 94 O2 Delivery Room Air Capillary Refill : Less Than 3 Seconds Height, Weight, BMI Height: 5'10.00" Weight: 220lbs. 0.0oz. [id number]; 38.00 BMI Method:Stated General Appearance: No Apparent Distress, WD/WN HEENT: PERRL/EOMI, TMs Normal, Normal ENT Inspection, Pharynx Normal Neck: Full Range of Motion, Normal Inspection, Non Tender, Supple Respiratory: Chest Non Tender, Lungs Clear, Normal Breath Sounds, No Accessory Muscle Use, No Respiratory Distress Cardiovascular: Regular Rate, Rhythm Gastrointestinal: Normal Bowel Sounds Rectal: Normal Exam Extremity: Normal Capillary Refill Neurologic/Psychiatric: Alert, Oriented x3, No Motor/Sensory Deficits, Normal Mood/Affect Skin: Normal Color, Warm/Dry Progress/Results/Core Measures Results/Orders Lab Results Laboratory Tests Test 12/22/21 11:45 Range/Units Urine Test NEGATIVE NEGATIVE My Orders Orders - NARENDRA AMOS APRN Chest Pa/Lat (2 View) (12/22/21 11:33) Ekg Tracing (12/22/21 11:33) Hcg,Qualitative Urine (12/22/21 11:33) Ketorolac Injection (Toradol Injection) (12/22/21 12:30) Vital Signs/I&O 12/22/21 12/22/21 11:14 11:26 Temp 36.4 Pulse 78 Resp 18 B/P (MAP) 137/88 (104) Pulse Ox 94 O2 Delivery Room Air Room Air 2 Blood Pressure Mean: 104 Progress Progress Note : Progress Note Patient is nontoxic and well hydrated on exam. No adventitious lung sounds or increased WOB noted. Chest wall TTP noted to the left lower chest just superior to the costal margin. TTP also in the left lower lateral chest wall and left lateral thoracic back. Patient also endorses TTP in the L upper quadrant of the abdomen. These areas also hurt when patient takes a large breath. She denies any trauma to these areas. Vital signs reassuring. Chest xray obtained that is acutely negative. EKG without ischemic changes or arrhythmia. Urine Hcg negative. Was given a dose of Ketorolac in the ED and will be d/c'd with a short course of the same. Patient educated to not take any other NSAIDs while on the ketorolac. Follow-up with PCP. Return precautions for urgent symptomology discussed. Patient verbalized understanding. EKG : EKG Time: 11:42 Rate: 73 Rhythm: Normal Sinus Intervals: Normal ECG Impression: Normal Departure Impression Primary Impression: Chest wall pain Disposition: 01 HOME, SELF-CARE Condition: Stable Departure-Patient Inst. Decision time for Depature: 12:25 Referrals: JHOAN SOLOMON MD (PCP/Family) Primary Care Physician Patient Instructions: Chest Pain That Is Not Caused by the Heart (DC) Scripts Ketorolac Tromethamine (Ketorolac Tromethamine) 10 Mg Tablet 10 MG PO Q6H for Pain for 5 Days, #20 TAB 0 Refills Prov: NARENDRA AMOS APRN 12/22/21 NARENDRA AMOS APRN Dec 22, 2021 11:34
--- NOTE | 2021-12-22 12:01 | Diagnostic Imaging Report ---
CHEST PA/LAT (2 VIEW) Indication: Chest pain Comparison: 12/09/2021 Findings: No pulmonary mass or consolidation. No pleural effusion or pneumothorax. Normal heart size and mediastinal contours. Impression: No acute cardiopulmonary process. Dictated by: Dictated on workstation # [id number]
[2021-12-22] MEDS ORDERED: KETO10TA PO (12:29)
[2021-12-22] MEDS ORDERED: KETOROLAC 30 MG/ML VIAL IM ONE (12:30)
[2021-12-22] MEDS ORDERED: BENZ100C18 PO (13:02)
[2021-12-22 13:05] VITALS: BP 137/88
== END 2021-12-22 13:05 | disposition home or self-care (01) ==
LOC: EDUNIT# 10:49 → ER 10:51
DX: R07.89 Other chest pain (principal); M54.6 Pain in thoracic spine; R10.12 Left upper quadrant pain; Z90.49 Acquired absence of other specified parts of digestive tract; Z28.310 Unvaccinated for COVID-19
CPT/HCPCS: 71046; 84703; 93005

== ENCOUNTER → 2022-06-20 | Outpatient (CLI) | payer BC ==
[~2022-06-20] MED LIST changes: +BENZ100C18 PO; +KETO10TA PO
--- NOTE | 2022-06-20 16:29 | Diagnostic Imaging Report ---
EXAMINATION: Lumbar spine radiographs, 3 views. COMPARISON: Lumbar spine radiographs October 30, 2017. HISTORY: 32-year-old female, low back pain. FINDINGS: There are 5 lumbar-type vertebral bodies. There is severe disc height loss at L5-S1. There is no identified compression deformity or fracture. The facet joints are unremarkable in appearance. The sacroiliac joints are unremarkable in appearance. IMPRESSION: 1. Severe disc degenerative changes at L5-S1. This appears essentially unchanged since October 30, 2017. Dictated by: Dictated on workstation # [id number]
--- NOTE | 2022-06-20 16:41 | Diagnostic Imaging Report ---
CLINICAL HISTORY: Chronic neck and back pain. No known injury. COMPARISON: None. TECHNIQUE: 3 views of the cervical spine. FINDINGS: There is no acute fracture or dislocation of the cervical spine. Alignment is anatomic. The vertebral body heights are maintained. No focal osseous lesions. Views of the dens are normal. The soft tissues of the neck are unremarkable. IMPRESSION: 1. No acute fracture or dislocation in the cervical spine. Dictated by: Dictated on workstation # [id number]
== END ==
LOC: RAD 08:32
PROVIDERS: ATTEND Nurse Practitioner Family
DX: M47.817 Spondylosis without myelopathy or radiculopathy, lumbosacral region (principal)
CPT/HCPCS: 72040; 72100

== ENCOUNTER → 2022-07-22 | Outpatient (CLI) | payer BC ==
--- NOTE | 2022-07-22 17:46 | Diagnostic Imaging Report ---
PROCEDURE: MRI lumbar spine. TECHNIQUE: Multiplanar, multisequence MRI of the lumbar spine was performed without contrast. INDICATION: Lumbar pain. COMPARISON: 06/20/2022. FINDINGS: Five lumbar-type vertebral bodies are present. Minimal retrolisthesis of L5 on S1 measuring near 5 mm. No additional anterolisthesis or retrolisthesis. Besides scattered endplate degenerative changes, particularly at L5/S1 and T12/L1, vertebral body heights are otherwise well maintained without evidence of a recent vertebral body compression deformity. This includes Modic type II endplate degenerative changes at L5/S1. Endplate irregularity is identified at T12/L1. The conus medullaris terminates at the appropriate location. The paraspinal soft tissues are unremarkable. T12/L1: Moderate disc space height loss. Moderate-sized diffuse disc osteophyte complex. Mild facet joint degenerative changes. There is resulting moderate central canal stenosis with indentation of the anterior aspect of the conus medullaris. No abnormal signal within the conus medullaris. No significant neural foraminal stenosis. L1/L2: Mild facet joint degenerative changes. No significant central canal or neural foraminal stenosis. L2/L3: Minimal facet joint degenerative changes. No significant central canal or neural foraminal stenosis. L3/L4: Minimal facet joint degenerative changes. No significant central canal or neural foraminal stenosis. L4/L5: Mild facet joint degenerative changes. Tiny diffuse disc bulge. Minimal disc desiccation. There is resulting minimal effacement of the bilateral lateral recesses. No significant neural foraminal stenosis. L5/S1: Minimal retrolisthesis. Minimal facet joint degenerative changes. Small diffuse disc bulge. There is resulting moderate left neural foraminal stenosis with mild right neural foraminal stenosis. Very minimal central canal stenosis. IMPRESSION: No acute osseous abnormality with degenerative changes and disc bulges as described above. This is most prominent at the T12/L1 and L5/S1 levels. This includes a disc osteophyte complex at the T12/L1 level resulting in moderate central canal stenosis with indentation of the conus medullaris. Level by level details are given above. Dictated by: Dictated on workstation # [id number]
== END ==
LOC: RAD 12:40
PROVIDERS: ATTEND Nurse Practitioner Family
DX: M51.36 Other intervertebral disc degeneration, lumbar region (principal); M25.78 Osteophyte, vertebrae; M47.815 Spondylosis without myelopathy or radiculopathy, thoracolumbar region; M47.817 Spondylosis without myelopathy or radiculopathy, lumbosacral region; M48.05 Spinal stenosis, thoracolumbar region; M47.816 Spondylosis without myelopathy or radiculopathy, lumbar region; M51.27 Other intervertebral disc displacement, lumbosacral region; M48.07 Spinal stenosis, lumbosacral region
CPT/HCPCS: 72148